=== PATIENT | female | born 1945 | race Caucasian/White ===

== ENCOUNTER → 2021-03-09 | Outpatient (CLI) | payer MEDICARE, OTHER ==
[2021-03-09 09:34] LABS: Anisocytosis Slight; Basophils % (A) 1 %; Eosinophils # (A) 0.1 k/uL (0-0.7); Eosinophils % (A) 5 %; HCT 29.8 % (34.0-46.0); HGB 8.8 gm/dL (11.4-16.0); Hypochromasia Marked; Lymphocytes % (A) 33 %; MCH 22.6 pg (25.0-35.0); MCHC 29.6 g/dL (31.0-37.0); MCV 76.4 fL (80.0-100.0); Mean Platelet Volume 6.1; Microcytosis Slight; Monocytes # (A) 0.3 k/uL (0-1.0); Monocytes % (A) 9 %; Neutrophils # (A) 1.5 k/uL (1.3-7.7); Neutrophils % (A) 49 %; Platelet Count 240 k/uL (150-450); Reticulocyte % 2.8 % (0.5-2.0); WBC 3.1 k/uL (3.8-10.6)
--- NOTE | 2021-03-09 12:58 | US ---
EXAMINATION TYPE: US abdomen complete DATE OF EXAM: 03/09/2021 COMPARISON: NONE CLINICAL HISTORY: D64.9 Anemia. EXAM MEASUREMENTS: Liver Length: 16.1 cm Gallbladder Wall: 0.2 cm CBD: 0.5 cm Spleen: 14.0 cm Right Kidney: 10.9 x 4.9 x 5.2 cm Left Kidney: 11.3 x 5.8 x 4.8 cm Morbidly obese patient who was unable to follow direction. Technically difficult very limited study. Pancreas: Obscured by bowel gas Liver: heterogeneous, limited views Gallbladder: cholelithiasis Evidence for sonographic Rust's sign: no CBD: wnl Spleen: enlarged Right Kidney: cortical thinning, limited views Left Kidney: not well visualized, ? hydronephrosis Upper IVC: wnl Abd Aorta: limited views Suboptimal study due to patient's large body habitus. Visualized portion of the proximal and mid aort a shows no aneurysm. Visualized portion of pancreas likely heterogeneous without mass or ductal dilat ation. IVC seen hepatic dome. Heterogeneity and visualized portion of liver without obvious mass or ductal dilatation. Intraluminal mobile shadowing gallstones. No abnormal wall thickening or pericholecystic fluid. Cortical thinning right kidney without hydronephrosis. Mild splenomegaly of 14.0 cm long axis. Poorly visualized left kidney on images saved. Cannot exclude left-sided hydronephrosis. IMPRESSION: Mild splenomegaly with heterogeneous hyperechoic appearance of liver could reflect diffus e fatty infiltration and/or underlying hepatocellular disease. No surrounding ascites. Suboptimal ko dy.
[2021-03-09 15:42] LABS: Folate, Serum 16.2 ng/mL
[2021-03-09 17:08] LABS: Protein, Total 6.8 g/dL (6.2-8.2)
[2021-03-10 13:30] LABS: Albumin 3.62 g/dL (3.80-4.90); Gamma Globulin 1.31 g/dL (0.70-1.50)
== END | disposition home or self-care (01) ==
LOC: RADUSWWP 08:30
PROVIDERS: ATTEND Internal Medicine
DX: D64.9 Anemia, unspecified (principal); R16.1 Splenomegaly, not elsewhere classified; K76.89 Other specified diseases of liver
CPT/HCPCS: 76700; 82607; 82746; 83615; 84165; 85025; 85045

== ENCOUNTER 2021-05-24 09:56 | Day surgery (SDC) | payer MEDICARE, OTHER ==
[2021-05-19 15:33] VITALS: BMI 43.2
[2021-05-24] MEDS ORDERED: LACTATED RINGERS 1,000 ML IV ONE (10:30)
[2021-05-24 10:32] VITALS: RESP 16; TEMP 97.9
[2021-05-24] MEDS ORDERED: LIDOCAINE 1% INJ 10MG/ML (20 ML MDV) ONE (10:52)
[2021-05-24] MEDS ORDERED: PROPOFOL 10 MG/ML 20 ML VIAL IV ONE (10:52)
--- NOTE | 2021-05-24 10:54 | P.GSHP ---
History of Present Illness H&P Date: 05/24/21 Chief Complaint: Anemia, screening 75-year-old female here for screening colonoscopy and workup for iron deficiency anemia. Patient with personal history of colon polyps during colonoscopy 2011. No bowel complaints. No rectal bleeding or melena. Past Medical History Past Medical History: Seizure Disorder Additional Past Medical History / Comment(s): DEVELPMENTAL DELAY. 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 History of Any Multi-Drug Resistant Organisms: None Reported Past Surgical History: Tonsillectomy Additional Past Surgical History / Comment(s): CYST ON TAILBONE, CYST ON BREAST REMOVED. Past Anesthesia/Blood Transfusion Reactions: No Reported Reaction Additional Past Anesthesia/Blood Transfusion Reaction / Comment(s): STATES SHE GETS "TOO NERVOUS" Additional Psychological History / Comment(s): DEVELOPMENTAL DELAY Smoking Status: Never smoker Past Alcohol Use History: None Reported Past Drug Use History: None Reported - Past Family History Mother Family Medical History: Unable to Obtain Medications and Allergies Home Medications Medication Instructions Recorded Confirmed Type Bumetanide 2 mg PO BID 05/20/21 05/20/21 History Cholecalciferol [Vitamin D3 (25 50 mcg PO DAILY 05/20/21 05/20/21 History Mcg = 1000 Iu)] Levothyroxine Sodium 125 mcg PO DAILY 05/20/21 05/20/21 History Multivitamin [Multivitamins Adult 1 each PO DAILY 05/20/21 05/20/21 History Gummies] Phenytoin Sodium Extended 200 mg PO BID 05/20/21 05/20/21 History [Dilantin] Primidone 250 mg PO HS 05/20/21 05/20/21 History Potassium Chloride 10 meq PO BID 05/23/21 05/23/21 History Allergies Allergy/AdvReac Type Severity Reaction Status Date / Time Penicillins Allergy Rash/Hives Verified 05/24/21 10:26 Surgical - Exam Vital Signs Temp Pulse Resp BP Pulse Ox 97.9 F 93 16 139/63 93 L 05/24/21 10:30 05/24/21 10:30 05/24/21 10:30 05/24/21 10:30 05/24/21 10:30 Physical exam: General: Well-developed, well-nourished HEENT: Normocephalic, sclerae nonicteric Abdomen: Nontender, nondistended Extremities: No edema Neuro: Alert and oriented Assessment and Plan (1) Colon cancer screening Narrative/Plan: Will proceed with upper and lower endoscopy. Current Visit: Yes Status: Acute Code(s): Z12.11 - ENCOUNTER FOR SCREENING FOR MALIGNANT NEOPLASM OF COLON SNOMED Code(s): 098863544
--- NOTE | 2021-05-24 11:26 | P.PCN ---
Date of Procedure: 05/24/21 Procedure(s) Performed: PREOPERATIVE DIAGNOSIS: Anemia, screening POSTOPERATIVE DIAGNOSIS: Gastric mass, gastric polyp, gastric nodules, multiple colon polyps, diverticulosis PROCEDURE: 1. EGD with biopsy 2. Colonoscopy with snare polypectomy ANESTHESIA: MAC SURGEON: Young Araiza M.D. SPECIMENS: Gastric mass, gastric polyp, gastric nodule, colon polyps ENDOSCOPIC PROCEDURE: The patient was on the endoscopy table in the left decubitus position. The Olympus gastroscope was inserted into the oropharynx and passed under direct visualization to the region of the third portion of the duodenum. From that point the scope was slowly withdrawn inspecting all surfaces carefully. There were no neoplastic inflammatory or polypoid lesions throughout the duodenum. The pylorus was widely patent. The stomach was carefully inspected. There was a mass present along the lesser curvature that was friable in nature. This was somewhat pedunculated in appearance. This measured approximately 4-5 cm in diameter. Multiple biopsies were taken of this area. This was present about 8-10 cm distal to the GE junction. In the antrum there was some nodularity of the mucosa that was biopsied. In the proximal antrum along the greater curvature a 1 cm polypoid lesion was seen and biopsied as well. Retroflexion revealed normal hiatus. The esophagus was examined and appeared normal. The patient was kept on the endoscopy table in the left decubitus position. The Olympus colonoscope was inserted into the anus and passed under direct visualization to the base of the cecum. The appendiceal orifice was visualized. From that point the scope was slowly withdrawn inspecting all surfaces carefully. There were no neoplastic inflammatory or polypoid lesions throughout the cecum. In the ascending colon a polyp was seen and removed using the snare with cautery technique. In the transverse colon another small polyp was seen and removed in a similar fashion. In the descending colon another small polyp was seen and removed in a similar fashion. The remainder of the descending sigmoid and rectum appeared normal. The patient had scattered diverticulosis. Digital rectal examination was normal. The patient was taken to the recovery room in stable condition per anesthesia guidelines. RECOMMENDATIONS: Await biopsy results. Source of anemia appears to be related to the gastric mass seen. Follow-up in office 1-2 weeks.
[2021-05-24 11:54] VITALS: BP 141/77; PULSE 75
== END 2021-05-24 12:06 | disposition home or self-care (01) ==
LOC: ORWHC2ENDO 09:56
PROVIDERS: ATTEND Surgery
DX: Z12.11 Encounter for screening for malignant neoplasm of colon (principal); D50.9 Iron deficiency anemia, unspecified; K31.9 Disease of stomach and duodenum, unspecified; K31.7 Polyp of stomach and duodenum; D13.1 Benign neoplasm of stomach; D12.2 Benign neoplasm of ascending colon; D12.4 Benign neoplasm of descending colon; D12.3 Benign neoplasm of transverse colon; G40.909 Epilepsy, unspecified, not intractable, without status epilepticus; E03.9 Hypothyroidism, unspecified; D51.9 Vitamin B12 deficiency anemia, unspecified; F82 Specific developmental disorder of motor function; Z88.0 Allergy status to penicillin; Z86.010 Personal history of colon polyps; Z79.899 Other long term (current) drug therapy; Z79.890 Hormone replacement therapy
CPT/HCPCS: 45385; 43239; 88305; J2001; J2704

== ENCOUNTER → 2022-07-06 | Outpatient (CLI) | payer MEDICARE, OTHER ==
[2022-07-06 19:21] LABS: % Iron Saturation 23.95 (12.00-45.00); ALT 30 U/L (8-44); AST 21 U/L (13-35); Albumin 3.9 g/dL (3.8-4.9); Albumin/Globulin Ratio 1.24 (1.60-3.17); Alkaline Phosphatase 125 U/L (41-126); BUN/Creat Ratio 26.85 Ratio (12.00-20.00); Blood Urea Nitrogen 17.8 mg/dL (9.0-27.0); Calcium 10.6 mg/dL (8.7-10.3); Carbon Dioxide 26.1 mmol/L (20.0-27.5); Chloride 106 mmol/L (96-109); Chol/HDL Ratio 2.23 Ratio; Ferritin 57.5 ng/mL (10.0-291.0); Globulin 3.2 g/dL (1.6-3.3); Glucose 126 mg/dL (70-110); Iron 72 ug/dL (50-170); LDL Cholesterol,Calculated 68.4 mg/dL (0.0-131.0); Non-African American GFR(CKD) 86.3 (60.0-200.0); Potassium 4.9 mmol/L (3.5-5.5); Sodium 140 mmol/L (135-145); Total Iron Binding Capacity 301 ug/dL (228-460); Total Protein 7.1 g/dL (6.2-8.2); VLDL Calculation 12.68 mg/dL (5.00-40.00)
[2022-07-06 20:19] LABS: Basophils # (A) 0.03 X 10*3/uL (0.00-0.10); Basophils % (A) 0.7 %; Eosinophils # (A) 0.23 X 10*3/uL (0.04-0.35); Eosinophils % (A) 5.3 %; HCT 42.3 % (37.2-46.3); HGB 13.6 g/dL (12.0-15.0); Immature Grans, Automated 0 %; Lymphocytes # (A) 1.44 X 10*3/uL (0.90-5.00); Lymphocytes % (A) 33.3 %; MCHC 32.2 g/dL (32.0-37.0); MCV 102.7 fL (80.0-97.0); Mean Platelet Volume 10.4 fL (9.5-12.2); Monocytes # (A) 0.44 X 10*3/uL (0.20-1.00); Monocytes % (A) 10.2 %; NRBC Per 100 WBC 0 /100 WBCS (0.0-0.0); Neutrophils # (A) 2.18 X 10*3/uL (1.80-7.70); Neutrophils % (A) 50.5 %; Platelet Count 156 X 10*3/uL (140-440); RBC 4.12 X 10*6/uL (4.10-5.20); RDW 13.8 % (11.5-14.5); WBC 4.32 X 10*3/uL (4.50-10.00)
--- NOTE | 2022-07-07 10:45 | CA ---
Transthoracic Echo Report Name: Margarita Chao Age: 77 Gender: F : 1945 Exam Date: 07/06/2022 11:41 Exam Location: [facility] Ht (in): 65 Wt (lb): 240 Ordering Physician: Chung Chance MD Attending/Referring Phys: Director Group Sales Laura Palmer RDCS Procedure CPT: Indications: R60.0 localized swelling Cardiac Hx: Technical Quality: Technically difficult study Contrast 1: Lumason Total Dose (mL): 4 Contrast 2: Total Dose (mL): MEASUREMENTS (Male / Female) Normal Values 2D ECHO LV Diastolic Diameter PLAX 4.6 cm 4.2 - 5.9 / 3.9 - 5.3 cm LV Systolic Diameter PLAX 3.1 cm IVS Diastolic Thickness 1.3 cm 0.6 - 1.0 / 0.6 - 0.9 cm LVPW Diastolic Thickness 1.2 cm 0.6 - 1.0 / 0.6 - 0.9 cm LV Relative Wall Thickness 0.5 RV Internal Dim ED PLAX 3.7 cm M-MODE Aortic Root Diameter MM 2.9 cm LA Systolic Diameter MM 3.6 cm LA Ao Ratio MM 1.2 AV Cusp Separation MM 1.7 cm DOPPLER AV Peak Velocity 76.2 cm/s AV Peak Gradient 2.3 mmHg LVOT Peak Velocity 87.9 cm/s LVOT Peak Gradient 3.1 mmHg MV Area PHT 3.9 cm??? Mitral E Point Velocity 69.4 cm/s Mitral A Point Velocity 73.3 cm/s Mitral E to A Ratio 0.9 MV Deceleration Time 192.5 ms TR Peak Velocity 222.4 cm/s TR Peak Gradient 19.8 mmHg Right Ventricular Systolic Press 24.8 mmHg FINDINGS Left Ventricle Mildly increased left ventricular wall thickness. Normal left ventricular systolic function with no obvious regional wall motion abnormalities. Left ventricular ejection fraction is estimated at 50-55 %. Right Ventricle Mild right ventricular dilatation. Right ventricular systolic pressure within normal limits. Right Atrium Normal right atrial size. Left Atrium Normal left atrial size. Mitral Valve Mitral valve not well visualized. No mitral stenosis. Aortic Valve No aortic valve stenosis or regurgitation. Tricuspid Valve Mild tricuspid regurgitation. Pulmonic Valve Trace pulmonic regurgitation. Pericardium No pericardial effusion. Aorta Normal size aortic root and proximal ascending aorta. CONCLUSIONS Technically difficult study for interpretation Normal left ventricular dimension and systolic function Previewed by: Dr. Manuel Delgado MD (Electronically Signed) Final Date: 07 July 2022 10:44
--- NOTE | 2022-07-10 16:09 | US ---
EXAMINATION TYPE: US arterial LE single level DATE OF EXAM: 07/06/2022 11:29 AM CLINICAL HISTORY: R60.0 LOCALIZED EDEMA. painful heels where patient has blistering, swelling Doppler Waveforms: Right: Biphasic Left: Biphasic Ankle-Brachial Indices: Right: 1.0 Left: 1.0 Toe Brachial Indices: Right: 0.6 Left: could not obtain, big toe crosses over 2nd digit and has red wound that is painful for patient. IMPRESSION: Some limitations the exam. Normal ankle-brachial indices.
== END | disposition home or self-care (01) ==
LOC: RADUSWWP 10:43
PROVIDERS: ATTEND Internal Medicine
DX: R60.0 Localized edema (principal)
CPT/HCPCS: 84439; 80061; 80053; 82607; 82728; 80185; 82746; 83540; 83550; 84443; 85025; 82306; 83036; 93922; C8929; Q9950; 93306

== ENCOUNTER 2023-05-06 16:20 | Inpatient (IN) | payer MEDICARE, OTHER ==
[2023-05-06] MEDS ORDERED: SODIUM CHLORIDE 0.9% 1,000 ML IV STA (16:45)
--- NOTE | 2023-05-06 16:45 | ED ---
Syncope HPI - General Chief Complaint: Fall Stated Complaint: fall Time Seen by Provider: 05/06/23 16:26 Source: EMS, RN notes reviewed, old records reviewed, Caregiver Mode of arrival: EMS Limitations: no limitations - History of Present Illness Initial Comments: This is a 77-year-old female to the emergency department for evaluation weakness weakness continuing to feel well significantly swollen and possible syncopal event. Patient has persistent symptoms since syncopal event and she fell off the toilet. Patient has weakness currently were unable to provide accurate history historian at baseline patient having difficulty telling complete story of why she is here in the ER patient's thought passed out will sitting on the toilet. MD Complaint: loss of consciousness, almost passed out, collapsed -: hour(s) Prodromal Symptoms: none, chest pain Witnessed: yes - by bystander Injuries Sustained Associated with Event: None Current Symptoms: back to baseline, lightheaded Context: at rest Treatments Prior to Arrival: none - Related Data Home Medications Medication Instructions Recorded Confirmed Levothyroxine Sodium 125 mcg PO DAILY 05/20/21 05/06/23 Phenytoin Sodium Extended 200 mg PO BID 05/20/21 05/06/23 [Dilantin] Primidone 250 mg PO HS 05/20/21 05/06/23 Potassium Chloride 10 meq PO DAILY 05/23/21 05/06/23 Betamethasone Dipropionate 1 applic TOPICAL BID 05/06/23 05/06/23 [Betamethasone Dipropionate 0.05%] Cinacalcet [Sensipar] 30 mg PO DAILY 05/06/23 05/06/23 Hydrocortisone Oint 1 applic TOPICAL BID 05/06/23 05/06/23 [Hydrocortisone 2.5% Oint] Montelukast [Singulair] 10 mg PO DAILY 05/06/23 05/06/23 predniSONE See Taper PO DAILY 05/06/23 05/07/23 Allergies Allergy/AdvReac Type Severity Reaction Status Date / Time Penicillins Allergy Rash/Hives Verified 05/06/23 20:18 Review of Systems ROS Statement: Those systems with pertinent positive or pertinent negative responses have been documented in the HPI. ROS Other: All systems not noted in ROS Statement are negative. Past Medical History History of Any Multi-Drug Resistant Organisms: None Reported Smoking Status: Never smoker General Exam Limitations: altered mental status, physical limitation General appearance: alert, in no apparent distress, anxious, lethargic, obtunded , in distress Head exam: Present: atraumatic, normocephalic, normal inspection Eye exam: Present: normal appearance, PERRL, EOMI. Absent: scleral icterus, conjunctival injection, periorbital swelling ENT exam: Present: normal exam, mucous membranes moist Neck exam: Present: normal inspection. Absent: tenderness, meningismus, lymphadenopathy Respiratory exam: Present: normal lung sounds bilaterally. Absent: respiratory distress, wheezes, rales, rhonchi, stridor Cardiovascular Exam: Present: regular rate, normal rhythm, normal heart sounds. Absent: systolic murmur, diastolic murmur, rubs, gallop, clicks GI/Abdominal exam: Present: soft, normal bowel sounds. Absent: distended, tenderness, guarding, rebound, rigid Extremities exam: Present: normal inspection, full ROM, normal capillary refill. Absent: tenderness, pedal edema, joint swelling, calf tenderness Back exam: Present: normal inspection Neurological exam: Present: alert, oriented X3, CN II-XII intact Psychiatric exam: Present: normal affect, normal mood Skin exam: Present: warm, dry, intact, normal color. Absent: rash Course Vital Signs 05/06/23 05/06/23 05/06/23 16:22 18:36 19:00 Temperature 97.2 F L Pulse Rate 77 73 69 Pulse Rate [ After School Program Teacher ] Respiratory 20 24 20 Rate Blood Pressure 158/75 210/69 134/59 Blood Pressure [Left Arm Supine] O2 Sat by Pulse 96 100 97 Oximetry 05/06/23 20:10 Temperature 96.7 F L Pulse Rate Pulse Rate [ 78 After School Program Teacher ] Respiratory 15 Rate Blood Pressure Blood Pressure 166/73 [Left Arm Supine] O2 Sat by Pulse 100 Oximetry - Reevaluation(s) Reevaluation #1: 05/06/23 17:49 Medical record is reviewed Reevaluation #2: 05/06/23 20:03 Patient has seizure here in the ER, symptoms worsening Seizure has resolved, no recurrent syncope Reevaluation #3: 05/06/23 20:03 Patient informed of results questions answered Reevaluation #4: 05/06/23 17:49 Was pt. sent in by a medical professional or institution (, PA, DATA GOVERNANCE ANALYST, urgent care, hospital, or alf...) When possible be specific @ -no Did you speak to anyone other than the patient for history (EMS, parent, family, police, friend...)? What history was obtained from this source @ -no Did you review nursing and triage notes (agree or disagree)? Why? @ -agree Are old charts reviewed (outside hosp., previous admission, EMS record, old EKG, old radiological studies, urgent care reports/EKG's, alf records)? Report findings @ -yes Differential Diagnosis (chest pain, altered mental status, abdominal pain women, abdominal pain men, vaginal bleeding, weakness, fever, dyspnea, syncope, headache, dizziness, GI bleed, back pain, seizure, CVA, palpatations, mental health, musculoskeletal)? @ -prior EKG interpreted by me (3pts min.). @ -yes X-rays interpreted by me (1pt min.). @ -no CT interpreted by me (1pt min.). @ -no U/S interpreted by me (1pt. min.). @ -no What testing was considered but not performed or refused? (CT, X-rays, U/S, labs )? Why? @ -none What meds were considered but not given or refused? Why? @ -none Did you discuss the management of the patient with other professionals (professionals i.e. , PA, DATA GOVERNANCE ANALYST, lab, RT, psych nurse, social services aide, excel expert, teacher, mechanical engineering officer, bottle caser)? Give summary @ -no Was smoking cessation discussed for >3mins.? @ -no Was critical care preformed (if so, how long)? @ -yes55 Were there social determinants of health that impacted care today? How? (Homelessness, low income, unemployed, alcoholism, drug addiction, transportation, low edu. Level, literacy, decrease access to med. care, fpc, rehab)? @ -none Was there de-escalation of care discussed even if they declined (Discuss DNR or withdrawal of care, Hospice)? DNR status @ -no What co-morbidities impacted this encounter? (DM, HTN, Smoking, COPD, CAD, Cancer, CVA, ARF, Chemo, Hep., AIDS, mental health diagnosis, sleep apnea, morbid obesity)? @ -none Was patient admitted / discharged? Hospital course, mention meds given and route, prescriptions, significant lab abnormalities, going to OR and other pertinent info. @ - 77 female to the emergency department for evaluation of syncopal event patient did have seizure here in the ER and then found to have subsequent sodium of 110. Patient will be admitted to the ICU on 3% saline Admitted Undiagnosed new problem with uncertain prognosis? @ -no Drug Therapy requiring intensive monitoring for toxicity (Heparin, Nitro, Insulin, Cardizem)? @ -no Were any procedures done? @ -no Diagnosis/symptom? @ -Hyponatremic, seizures, syncope, weakness Acute, or Chronic, or Acute on Chronic? @ -Acute Uncomplicated (without systemic symptoms) or Complicated (systemic symptoms)? @ -Complicated Side effects of treatment? @ -no Exacerbation, Progression, or Severe Exacerbation? @ -exacerbation Poses a threat to life or bodily function? How? (Chest pain, USA, AK, pneumonia, PE, COPD, DKA, ARF, appy, cholecystitis, CVA, Diverticulitis, Homicidal, Suicidal, threat to staff... and all critical care pts) @ -yes Reevaluation #5: 05/06/23 17:49 Differential Syncope: Valvular disease, hypertrophic cardiomyopathy, pulmonary embolism, tamponade, tachycardia, bradycardia, AK, hypovolemia, hemorrhage, dissection, anemia, intracranial hemorrhage, seizure, hypoglycemia, carbon monoxide poisoning, this is not meant to be an all-inclusive list. - Consultations Consultation #1: Spoke with sound who agrees to admit this patient Consultation #2: Spoke with ICU physician who agrees to admit the patient to the ICU EKG Findings - EKG Comments: EKG Findings:: EKG is sinus 74 OH 195 QRS 95 QTc 404 - EKG Results: EKG: interpreted by ERMD Medical Decision Making - Medical Decision Making 77 female to the emergency department for evaluation of syncopal event patient did have seizure here in the ER and then found to have subsequent sodium of 110. Patient did recover from seizure activity with return to normal mental state, patient significantly ill here in the ER with persistent weakness. Patient will be admitted to the ICU on 3% saline - Lab Data Result diagrams: 05/09/23 03:32 05/14/23 05:39 Lab Results 05/06/23 05/06/23 05/06/23 Range/Units 17:20 17:20 17:20 WBC 7.2 (3.8-10.6) k/uL RBC 3.59 L (3.80-5.40) m/uL Hgb 11.7 (11.4-16.0) gm/dL Hct 32.8 L (34.0-46.0) % MCV 91.3 (80.0-100.0) fL MCH 32.6 (25.0-35.0) pg MCHC 35.7 (31.0-37.0) g/dL RDW 14.3 (11.5-15.5) % Plt Count 169 (150-450) k/uL MPV 7.4 Neutrophils % 82 % Lymphocytes % 6 % Monocytes % 8 % Eosinophils % 2 % Basophils % 0 % Neutrophils # 5.9 (1.3-7.7) k/uL Lymphocytes # 0.5 L (1.0-4.8) k/uL Monocytes # 0.6 (0-1.0) k/uL Eosinophils # 0.1 (0-0.7) k/uL Basophils # 0.0 (0-0.2) k/uL PT 9.6 (9.0-12.0) sec INR 0.9 (<1.2) APTT 25.1 (22.0-30.0) sec Sodium 110 L* (137-145) mmol/L Potassium 4.7 (3.5-5.1) mmol/L Chloride 86 L (98-107) mmol/L Carbon Dioxide 19 L (22-30) mmol/L Anion Gap 5 mmol/L BUN 19 H (7-17) mg/dL Creatinine 0.50 L (0.52-1.04) mg/dL Est GFR (CKD-EPI)AfAm >90 (>60 ml/min/1.73 sqM) Est GFR (CKD-EPI)NonAf >90 (>60 ml/min/1.73 sqM) Glucose 156 H (74-99) mg/dL Osmolality (280-301) mosm/kg Calcium 8.7 (8.4-10.2) mg/dL Phosphorus 2.9 (2.5-4.5) mg/dL Magnesium 1.8 (1.6-2.3) mg/dL Total Bilirubin 0.5 (0.2-1.3) mg/dL AST 140 H (14-36) U/L ALT 49 H (4-34) U/L Alkaline Phosphatase 81 (38-126) U/L Troponin I (0.000-0.034) ng/mL NT-Pro-B Natriuret Pep 48 pg/mL Total Protein 5.9 L (6.3-8.2) g/dL Albumin 2.7 L (3.5-5.0) g/dL Urine Color Urine Appearance (Clear) Urine pH (5.0-8.0) Ur Specific Henderson (1.001-1.035) Urine Protein (Negative) Urine Glucose (UA) (Negative) Urine Ketones (Negative) Urine Blood (Negative) Urine Nitrite (Negative) Urine Bilirubin (Negative) Urine Urobilinogen (<2.0) mg/dL Ur Leukocyte Esterase (Negative) Urine RBC (0-5) /hpf Urine WBC (0-5) /hpf Ur Squamous Epith Cells (0-4) /hpf Urine Mucus (None) /hpf Urine Osmolality (50-1400) mosm/kg 05/06/23 05/06/23 05/06/23 Range/Units 17:20 17:20 19:20 WBC (3.8-10.6) k/uL RBC (3.80-5.40) m/uL Hgb (11.4-16.0) gm/dL Hct (34.0-46.0) % MCV (80.0-100.0) fL MCH (25.0-35.0) pg MCHC (31.0-37.0) g/dL RDW (11.5-15.5) % Plt Count (150-450) k/uL MPV Neutrophils % % Lymphocytes % % Monocytes % % Eosinophils % % Basophils % % Neutrophils # (1.3-7.7) k/uL Lymphocytes # (1.0-4.8) k/uL Monocytes # (0-1.0) k/uL Eosinophils # (0-0.7) k/uL Basophils # (0-0.2) k/uL PT (9.0-12.0) sec INR (<1.2) APTT (22.0-30.0) sec Sodium (137-145) mmol/L Potassium (3.5-5.1) mmol/L Chloride (98-107) mmol/L Carbon Dioxide (22-30) mmol/L Anion Gap mmol/L BUN (7-17) mg/dL Creatinine (0.52-1.04) mg/dL Est GFR (CKD-EPI)AfAm (>60 ml/min/1.73 sqM) Est GFR (CKD-EPI)NonAf (>60 ml/min/1.73 sqM) Glucose (74-99) mg/dL Osmolality 247 L* (280-301) mosm/kg Calcium (8.4-10.2) mg/dL Phosphorus (2.5-4.5) mg/dL Magnesium (1.6-2.3) mg/dL Total Bilirubin (0.2-1.3) mg/dL AST (14-36) U/L ALT (4-34) U/L Alkaline Phosphatase (38-126) U/L Troponin I <0.012 (0.000-0.034) ng/mL NT-Pro-B Natriuret Pep pg/mL Total Protein (6.3-8.2) g/dL Albumin (3.5-5.0) g/dL Urine Color Yellow Urine Appearance Clear (Clear) Urine pH 5.5 (5.0-8.0) Ur Specific Henderson 1.025 (1.001-1.035) Urine Protein Trace H (Negative) Urine Glucose (UA) Negative (Negative) Urine Ketones 1+ H (Negative) Urine Blood Small H (Negative) Urine Nitrite Negative (Negative) Urine Bilirubin Negative (Negative) Urine Urobilinogen <2.0 (<2.0) mg/dL Ur Leukocyte Esterase Negative (Negative) Urine RBC <1 (0-5) /hpf Urine WBC 1 (0-5) /hpf Ur Squamous Epith Cells <1 (0-4) /hpf Urine Mucus Rare H (None) /hpf Urine Osmolality (50-1400) mosm/kg 05/06/23 Range/Units 19:20 WBC (3.8-10.6) k/uL RBC (3.80-5.40) m/uL Hgb (11.4-16.0) gm/dL Hct (34.0-46.0) % MCV (80.0-100.0) fL MCH (25.0-35.0) pg MCHC (31.0-37.0) g/dL RDW (11.5-15.5) % Plt Count (150-450) k/uL MPV Neutrophils % % Lymphocytes % % Monocytes % % Eosinophils % % Basophils % % Neutrophils # (1.3-7.7) k/uL Lymphocytes # (1.0-4.8) k/uL Monocytes # (0-1.0) k/uL Eosinophils # (0-0.7) k/uL Basophils # (0-0.2) k/uL PT (9.0-12.0) sec INR (<1.2) APTT (22.0-30.0) sec Sodium (137-145) mmol/L Potassium (3.5-5.1) mmol/L Chloride (98-107) mmol/L Carbon Dioxide (22-30) mmol/L Anion Gap mmol/L BUN (7-17) mg/dL Creatinine (0.52-1.04) mg/dL Est GFR (CKD-EPI)AfAm (>60 ml/min/1.73 sqM) Est GFR (CKD-EPI)NonAf (>60 ml/min/1.73 sqM) Glucose (74-99) mg/dL Osmolality (280-301) mosm/kg Calcium (8.4-10.2) mg/dL Phosphorus (2.5-4.5) mg/dL Magnesium (1.6-2.3) mg/dL Total Bilirubin (0.2-1.3) mg/dL AST (14-36) U/L ALT (4-34) U/L Alkaline Phosphatase (38-126) U/L Troponin I (0.000-0.034) ng/mL NT-Pro-B Natriuret Pep pg/mL Total Protein (6.3-8.2) g/dL Albumin (3.5-5.0) g/dL Urine Color Urine Appearance (Clear) Urine pH (5.0-8.0) Ur Specific Henderson (1.001-1.035) Urine Protein (Negative) Urine Glucose (UA) (Negative) Urine Ketones (Negative) Urine Blood (Negative) Urine Nitrite (Negative) Urine Bilirubin (Negative) Urine Urobilinogen (<2.0) mg/dL Ur Leukocyte Esterase (Negative) Urine RBC (0-5) /hpf Urine WBC (0-5) /hpf Ur Squamous Epith Cells (0-4) /hpf Urine Mucus (None) /hpf Urine Osmolality 722 (50-1400) mosm/kg - EKG Data -: EKG Interpreted by Me Critical Care Time Critical Care Time: Yes Total Critical Care Time: 65 Disposition Clinical Impression: Fall, Seizure, Hyponatremia, Syncope, Weakness Disposition: ADMITTED IP TO THIS [facility] Condition: Critical Is patient prescribed a controlled substance at d/c from ED?: No Time of Disposition: 20:00
[2023-05-06 17:57] LABS: Basophils % (A) 0 %; Eosinophils # (A) 0.1 k/uL (0-0.7); Eosinophils % (A) 2 %; HCT 32.8 % (34.0-46.0); HGB 11.7 gm/dL (11.4-16.0); Lymphocytes # (A) 0.5 k/uL (1.0-4.8); Lymphocytes % (A) 6 %; MCH 32.6 pg (25.0-35.0); MCHC 35.7 g/dL (31.0-37.0); MCV 91.3 fL (80.0-100.0); Mean Platelet Volume 7.4; Monocytes # (A) 0.6 k/uL (0-1.0); Monocytes % (A) 8 %; Neutrophils # (A) 5.9 k/uL (1.3-7.7); Neutrophils % (A) 82 %; Platelet Count 169 k/uL (150-450); RBC 3.59 m/uL (3.80-5.40); RDW 14.3 % (11.5-15.5); WBC 7.2 k/uL (3.8-10.6)
[2023-05-06 18:05] LABS: INR 0.9 (<1.2); Partial Thromboplastin Time 25.1 sec (22.0-30.0); Prothrombin Time 9.6 sec (9.0-12.0)
[2023-05-06 18:20] LABS: ALT 49 U/L (4-34); AST 140 U/L (14-36); African American GFR (CKD) >90 (>60 ml/min/1.73 sqM); Albumin 2.7 g/dL (3.5-5.0); Alkaline Phosphatase 81 U/L (38-126); Anion Gap 5 mmol/L; Blood Urea Nitrogen 19 mg/dL (7-17); Calcium 8.7 mg/dL (8.4-10.2); Carbon Dioxide 19 mmol/L (22-30); Chloride 86 mmol/L (98-107); Glucose 156 mg/dL (74-99); Magnesium 1.8 mg/dL (1.6-2.3); Non-African American GFR(CKD) >90 (>60 ml/min/1.73 sqM); Phosphorus 2.9 mg/dL (2.5-4.5); Potassium 4.7 mmol/L (3.5-5.1); Total Bilirubin 0.5 mg/dL (0.2-1.3); Total Protein 5.9 g/dL (6.3-8.2)
[2023-05-06 18:27] LABS: NT-Pro-B-Type Natriuretic Pept 48 pg/mL
[2023-05-06] MEDS ORDERED: LORazepam 2 MG/ML INJ IV STA (18:35)
[2023-05-06 18:45] LABS: Sodium 110 mmol/L (137-145)
[2023-05-06] MEDS ORDERED: SODIUM CHLORIDE 3%(HYPERTONIC) 500 ML IV ONE (18:51)
[2023-05-06] MEDS ORDERED: levETIRAcetam IV 500 MG/5 ML VIAL IVP STA (19:07)
[2023-05-06] MEDS ORDERED: NALOXONE 0.4 MG/ML 1 ML VIAL IV PRN (19:42)
[2023-05-06 19:49] LABS: Appearance,Urine Clear (Clear); Bilirubin,Urine Negative (Negative); Blood,Urine Small (Negative); Color,Urine Yellow; Glucose,Urine (UA) Negative (Negative); Ketones,Urine 1+ (Negative); Leukocyte Esterase,Urine Negative (Negative); Mucus,Urine Rare /hpf; Nitrite,Urine Negative (Negative); PH, Urine 5.5 (5.0-8.0); Protein,Urine Trace (Negative); RBC,Urine <1 /hpf (0-5); Specific Gravity,Urine 1.025 (1.001-1.035); Squamous Epithelial Cell,Urine <1 /hpf (0-4); Urobilinogen,Urine <2.0 mg/dL (<2.0); WBC,Urine 1 /hpf (0-5)
[2023-05-06 20:39] LABS: Glucose,Whole Blood 147 mg/dL (70-110)
[2023-05-07 00:01] LABS: Sodium 112 mmol/L (137-145)
[2023-05-07] MEDS: HEPARIN SODIUM,PORCINE 5,000 UNIT/ML 1 ML VIAL SQ SCH ×4 (00:58→23:13)
[2023-05-07] MEDS: DOXYCYCLINE 100 MG CAP PO SCH ×3 (01:18→21:31)
[2023-05-07] MEDS: CALAMINE/ZINC OXIDE LOTION 177 ML BTL TOPICAL PRN ×2 (01:21→21:28)
--- NOTE | 2023-05-07 01:44 | P.HPIM ---
History of Present Illness H&P Date: 05/06/23 Chief Complaint: near syncope 77 year old female with seizure disorder. patient provide limited history at this time she is coming in after almost passing out while on the toilet, she felt dizzy and weak and fell off the toilet, denies any head injury or new focal neuro deficits, she is not on blood thinner, denies having any associated chest pain , trouble breathing or palpitations. denies any prior episodes of similar event, she does not believe that she lost consciousness, and her last seizure has been years ago, however recently she has stopped her dilantin under medical supervision. while in the ED, she was noticed to have a seizure episode. blood work showed very low sodium level. she also has a rash over her face, upper chest and upper back. bilateral upper extremities , then to lesser extent on upper abd. and does not extend further than that, mucus membranes are not involved. she claims its itchy and painful at certain spots, she picks on her skin a lot. she reports that she had this lesion for long time, but could not specify how long review of systems Pertinent positives as noted in HPI. All other systems were reviewed and are negative on exam Constitutional: No acute distress, awake cooperative, slow to answer questions Eyes: Anicteric sclerae, moist conjunctiva, Pupils equal round reactive to light ENMT: NC/AT Oropharynx clear, no erythema, or exudates Neck: Supple, no masses, or JVD No carotid bruits No thyromegaly Lungs: Clear to auscultation Clear to percussion Normal respiratory effort, no accessory muscle use Cardiovascular: Heart regular in rate and rhythm, No murmurs, gallops, or rubs +1 bilateral peripheral edema of bilateral upper and lower extremities Abdominal: Soft Nontender, no guarding, rebound or rigidity Abdomen moving with respiration Normoactive bowel sounds No hepatomegaly, No splenomegaly No palpable mass No abdominal wall hernia noted Skin: rash over the face, neck upper chest and back, bilateral upper extremities and upper abd, with areas of excoriation of the skin and dry crustation, along with yellowish mucus discharge around her eyes, and under her neck . Extremities: No digital cyanosis No clubbing Pedal pulses intact and symmetrical Radial pulses intact and symmetrical No calf tenderness Psychiatric: Alert and oriented to person, place Neuro Muscles Strength 3/5 in bilateral upper and lower extremities Sensation to light touch grossly present throughout Cranial nerves II-XII grossly intact Lymphatics: no palpable cervical or supraclavicular lymph nodes Past Medical History Past Medical History: Seizure Disorder, Thyroid Disorder History of Any Multi-Drug Resistant Organisms: None Reported Past Surgical History: No Surgical Hx Reported Additional Past Surgical History / Comment(s): cataract surgery, non-cancerous stomach growth removal Past Psychological History: No Psychological Hx Reported Smoking Status: Never smoker Medications and Allergies Home Medications Medication Instructions Recorded Confirmed Type Levothyroxine Sodium 125 mcg PO DAILY 05/20/21 05/06/23 History Phenytoin Sodium Extended 200 mg PO BID 05/20/21 05/06/23 History [Dilantin] Primidone 250 mg PO HS 05/20/21 05/06/23 History Potassium Chloride 10 meq PO DAILY 05/23/21 05/06/23 History Betamethasone Dipropionate 1 applic TOPICAL BID 05/06/23 05/06/23 History [Betamethasone Dipropionate 0.05%] Cinacalcet [Sensipar] 30 mg PO DAILY 05/06/23 05/06/23 History Hydrocortisone Oint 1 applic TOPICAL BID 05/06/23 05/06/23 History [Hydrocortisone 2.5% Oint] Montelukast [Singulair] 10 mg PO DAILY 05/06/23 05/06/23 History predniSONE 1 dose PO DIRECTED 05/06/23 05/06/23 History Allergies Allergy/AdvReac Type Severity Reaction Status Date / Time Penicillins Allergy Rash/Hives Verified 05/06/23 20:18 Physical Exam Vitals: Vital Signs Temp Pulse Pulse Resp BP BP BP 05/07/23 00:00 76 18 153/73 05/06/23 23:30 80 20 128/60 05/06/23 23:00 67 14 113/49 05/06/23 22:47 96.7 F L 78 15 166/73 05/06/23 22:30 70 15 147/61 05/06/23 22:15 79 18 112/46 05/06/23 22:00 64 15 127/59 05/06/23 21:45 79 19 117/75 05/06/23 21:30 67 16 135/70 05/06/23 21:15 80 18 142/63 05/06/23 21:00 71 15 140/61 05/06/23 20:45 83 22 166/79 05/06/23 20:30 97.4 F L 81 18 123/55 05/06/23 20:10 96.7 F L 78 15 166/73 05/06/23 19:00 69 20 134/59 05/06/23 18:36 73 24 210/69 05/06/23 16:22 97.2 F L 77 20 158/75 Pulse Ox 05/07/23 00:00 94 L 05/06/23 23:30 97 05/06/23 23:00 98 05/06/23 22:47 100 05/06/23 22:30 95 05/06/23 22:15 97 05/06/23 22:00 97 05/06/23 21:45 98 05/06/23 21:30 95 05/06/23 21:15 98 05/06/23 21:00 95 05/06/23 20:45 98 05/06/23 20:30 96 05/06/23 20:10 100 05/06/23 19:00 97 05/06/23 18:36 100 05/06/23 16:22 96 Intake and Output 05/06/23 05/06/23 05/07/23 14:59 22:59 06:59 Intake Total 60 60 Output Total 780 670 Balance -720 -610 Intake: Intake, IV Titration 60 60 Amount Sodium Chloride 3%( 60 60 Hypertonic) 500 ml @ 30 mls/hr IV .[id number] ONE Rx #:[id number] Output: Urine 780 670 Uretheral ([place]) 200 Other: Voiding Method Indwelling Catheter Weight 132.2 kg Results CBC & Chem 7: 05/06/23 17:20 05/06/23 23:25 Labs: Abnormal Lab Results - Last 24 Hours (Table) 05/06/23 05/06/23 05/06/23 Range/Units 17:20 17:20 17:20 RBC 3.59 L (3.80-5.40) m/uL Hct 32.8 L (34.0-46.0) % Lymphocytes # 0.5 L (1.0-4.8) k/uL Sodium 110 L* (137-145) mmol/L Chloride 86 L (98-107) mmol/L Carbon Dioxide 19 L (22-30) mmol/L BUN 19 H (7-17) mg/dL Creatinine 0.50 L (0.52-1.04) mg/dL Glucose 156 H (74-99) mg/dL POC Glucose (mg/dL) (70-110) mg/dL Osmolality 247 L* (280-301) mosm/kg AST 140 H (14-36) U/L ALT 49 H (4-34) U/L Total Protein 5.9 L (6.3-8.2) g/dL Albumin 2.7 L (3.5-5.0) g/dL Urine Protein (Negative) Urine Ketones (Negative) Urine Blood (Negative) Urine Mucus (None) /hpf 05/06/23 05/06/23 05/06/23 Range/Units 19:20 20:37 23:25 RBC (3.80-5.40) m/uL Hct (34.0-46.0) % Lymphocytes # (1.0-4.8) k/uL Sodium 112 L* (137-145) mmol/L Chloride (98-107) mmol/L Carbon Dioxide (22-30) mmol/L BUN (7-17) mg/dL Creatinine (0.52-1.04) mg/dL Glucose (74-99) mg/dL POC Glucose (mg/dL) 147 H (70-110) mg/dL Osmolality (280-301) mosm/kg AST (14-36) U/L ALT (4-34) U/L Total Protein (6.3-8.2) g/dL Albumin (3.5-5.0) g/dL Urine Protein Trace H (Negative) Urine Ketones 1+ H (Negative) Urine Blood Small H (Negative) Urine Mucus Rare H (None) /hpf Assessment and Plan Assessment: 77 year old female in here for near syncope, and witnessed seizure in the ED, I discussed the case with ED doc and I accepted the admission for symptomatic severe hyponatremia to the ICU with anticipated length of stay > 2 midnights symptomatic severe hyponatremia with fluid overload breakthrough seizure episode , secondary to above vs history of seizure disorder off dilantin seizure precautions correct hyponatremia , currently on hypertonic saline 3% , Goal is correction of sodium closer to 120 , currently she is at 110-->112 (GOal correction of 6-9 meq per 24 hours) check Na level q4hrs hypoosmolar nephrology consult ICU care initiated on keppra 1000 mg BID neurology consult monitor vital signs monitor urine output BUN 19 cr 0.5 unremarkable diffuse skin rash and lesions rule out impetigo started on doxycycline 100 mg po bid calamine lotion for comfort no evidence of mucus membranes involvement hypothyroid resume levothyroxine echocardiogram from 01/2022 showed preserved LVEF full code DVT PPX heparin sc tid
--- NOTE | 2023-05-07 02:23 | P.CNPUL ---
History of Present Illness Consult date: 05/07/23 Requesting physician: Juan Garcia Reason for consult: other (ICU management) Chief complaint: Weakness and fall History of present illness: I am seeing this patient in new consultation today and 04/06/2023 for symptomatic hyponatremia. Patient is a 77-year-old white female past medical history significant for seizure disorder, hypothyroidism, and morbid obesity. The patient is a questionable historian. Apparently, the patient presented to the emergency room yesterday afternoon with severe generalized weakness and fall while in the bathroom. She denies hitting her head. There is no obvious head trauma. On arrival to the emergency room, the patient's sodium was found to be severely low at 110. She denies starting any new medications, malignancies. She did reportedly have a seizure while emergency room, which was not described and I'm uncertain of timeframe. It does appear that it was terminated with 2 mg of Ativan. The patient was loaded with Keppra. This is likely due to the patient's hyponatremia, however, the patient's Dilantin was reportedly stopped 7-10 days ago. The patient did develop a rash on her chest and bilateral arms. This may have developed between 1-2 weeks ago; as stated before, the patient is a poor historian. No reported recent seizure in over 10 years. Phenytoin is known to cause Kohler-Simon syndrome, however, this is felt to be less likely the patient has chronically been on this medication. The rash is localized to her chest, upper back, and bilateral arms. It spares mucosal membranes. Rash is erythemic with yellow crust. Patient describes the rash as pruritic and painful. No fever. Patient has been started on doxycycline. CBC on arrival is unremarkable. No leukocytosis. BMP on arrival showed a sodium of 110, potassium 4.7, chloride 86, serum bicarb 19, BUN 19, creatinine 0.5, glucose 156. Serum osmolality was low at 247. Urine osmolality was 722. Most recent sodium was 112. TSH and cortisol levels were within range. Hypertonic 3% saline is infusing at 30 MLS per hour per nephrology. Patient is edematous. There is a [place] catheter with adequate urine production. No further seizure activity noted by nursing staff. Patient is currently sitting up in bed, on room air, in no acute distress. She is drowsy but oriented. She is unable to provide specific dates or times. She has nonfocal generalized weakness throughout. Vital signs are stable. Review of Systems REVIEW OF SYSTEMS: CONSTITUTIONAL: Denies any recent significant weight loss or weight gain. EYES: Denies change in vision. EARS, NOSE, MOUTH, THROAT: Denies headaches, denies sore throat. CARDIOVASCULAR: Denies chest pain, palpitations or syncopal episodes. Admits generalized swelling. RESPIRATORY: Denies shortness of breath, cough, congestion or hemoptysis. GASTROINTESTINAL: Denies change in appetite, abdominal pain, nausea and vomiting, or diarrhea GENITOURINARY: Denies hematuria, denies infections. MUSKULOSKELETAL: Denies pain, denies swelling. INTEGUMENTARY: Admits rashes described in HPI. NEUROLOGICAL: Admits generalized weakness PSYCHIATRIC: Denies anxiety, denies depression. HEMATOLOGIC/LYMPHATIC: Denies anemia, denies enlarged lymph node Past Medical History Past Medical History: Seizure Disorder, Thyroid Disorder History of Any Multi-Drug Resistant Organisms: None Reported Past Surgical History: No Surgical Hx Reported Additional Past Surgical History / Comment(s): cataract surgery, non-cancerous stomach growth removal Past Psychological History: No Psychological Hx Reported Smoking Status: Never smoker Medications and Allergies Home Medications Medication Instructions Recorded Confirmed Type Levothyroxine Sodium 125 mcg PO DAILY 05/20/21 05/06/23 History Phenytoin Sodium Extended 200 mg PO BID 05/20/21 05/06/23 History [Dilantin] Primidone 250 mg PO HS 05/20/21 05/06/23 History Potassium Chloride 10 meq PO DAILY 05/23/21 05/06/23 History Betamethasone Dipropionate 1 applic TOPICAL BID 05/06/23 05/06/23 History [Betamethasone Dipropionate 0.05%] Cinacalcet [Sensipar] 30 mg PO DAILY 05/06/23 05/06/23 History Hydrocortisone Oint 1 applic TOPICAL BID 05/06/23 05/06/23 History [Hydrocortisone 2.5% Oint] Montelukast [Singulair] 10 mg PO DAILY 05/06/23 05/06/23 History predniSONE 1 dose PO DIRECTED 05/06/23 05/06/23 History Allergies Allergy/AdvReac Type Severity Reaction Status Date / Time Penicillins Allergy Rash/Hives Verified 05/06/23 20:18 Physical Exam Vitals: Vital Signs Temp Pulse Pulse Resp BP BP BP 05/07/23 00:00 97.6 F 76 18 153/73 05/06/23 23:30 80 20 128/60 05/06/23 23:00 67 14 113/49 05/06/23 22:47 96.7 F L 78 15 166/73 05/06/23 22:30 70 15 147/61 05/06/23 22:15 79 18 112/46 05/06/23 22:00 64 15 127/59 05/06/23 21:45 79 19 117/75 05/06/23 21:30 67 16 135/70 05/06/23 21:15 80 18 142/63 05/06/23 21:00 71 15 140/61 05/06/23 20:45 83 22 166/79 05/06/23 20:30 97.4 F L 81 18 123/55 05/06/23 20:10 96.7 F L 78 15 166/73 05/06/23 19:00 69 20 134/59 05/06/23 18:36 73 24 210/69 05/06/23 16:22 97.2 F L 77 20 158/75 Pulse Ox 05/07/23 00:00 94 L 05/06/23 23:30 97 05/06/23 23:00 98 05/06/23 22:47 100 05/06/23 22:30 95 05/06/23 22:15 97 05/06/23 22:00 97 05/06/23 21:45 98 05/06/23 21:30 95 05/06/23 21:15 98 05/06/23 21:00 95 05/06/23 20:45 98 05/06/23 20:30 96 05/06/23 20:10 100 05/06/23 19:00 97 05/06/23 18:36 100 05/06/23 16:22 96 Intake and Output 05/06/23 05/06/23 05/07/23 14:59 22:59 06:59 Intake Total 60 60 Output Total 780 670 Balance -720 -215 Intake: Intake, IV Titration 60 60 Amount Sodium Chloride 3%( 60 60 Hypertonic) 500 ml @ 30 mls/hr IV .[id number] ONE Rx #:[id number] Output: Urine 780 670 Uretheral ([place]) 200 Other: Voiding Method Indwelling Catheter Weight 132.2 kg GENERAL EXAM: Drowsy but for a fully oriented, 77-year-old white female, who is morbidly obese , comfortable in no apparent distress. HEAD: Normocephalic and atraumatic EYES: Normal reaction of pupils, equal size. NOSE: Clear with pink turbinates. THROAT: No erythema or exudates. NECK: No masses, no JVD. CHEST: No chest wall deformity. LUNGS: Equal air entry with no crackles, wheeze, rhonchi or dullness. On room air. No conversational dyspnea or accessory muscle use.. CVS: S1 and S2 normal with no audible murmur, regular rhythm. No extra heart sounds ABDOMEN: Obese abdomen, no hepatosplenomegaly, active bowel sounds, no guarding or rigidity. SPINE: No scoliosis or deformity SKIN: Rash localized to the trunk and bilateral upper extremities. It is erythemic with scaling and crusts. CENTRAL NERVOUS SYSTEM: No focal deficits, tone is weak in all 4 extremities. Strength is 3/5 bilaterally in all four extremities. No seizure activity noted. EXTREMITIES: Generalized edema with pitting edema bilateral lower extremities 3+. No clubbing, or cyanosis. Peripheral pulses are intact. Results - Laboratory Findings CBC and BMP: 05/06/23 17:20 05/06/23 23:25 PT/INR, D-dimer PT 9.6 sec (9.0-12.0) 05/06/23 17:20 INR 0.9 (<1.2) 05/06/23 17:20 Abnormal lab findings: Abnormal Labs 05/06/23 05/06/23 05/06/23 17:20 17:20 17:20 RBC 3.59 L Hct 32.8 L Lymphocytes # 0.5 L Sodium 110 L* Chloride 86 L Carbon Dioxide 19 L BUN 19 H Creatinine 0.50 L Glucose 156 H POC Glucose (mg/dL) Osmolality 247 L* AST 140 H ALT 49 H Total Protein 5.9 L Albumin 2.7 L Urine Protein Urine Ketones Urine Blood Urine Mucus 05/06/23 05/06/23 05/06/23 19:20 20:37 23:25 RBC Hct Lymphocytes # Sodium 112 L* Chloride Carbon Dioxide BUN Creatinine Glucose POC Glucose (mg/dL) 147 H Osmolality AST ALT Total Protein Albumin Urine Protein Trace H Urine Ketones 1+ H Urine Blood Small H Urine Mucus Rare H Assessment and Plan Assessment: Symptomatic severe hypotonic hyponatremia, 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 Serum osmolality was low at 247. Urine osmolality was 722. Most recent sodium was 112. TSH and cortisol levels were within range. Hypertonic 3% saline is infusing at 30 MLS per hour per nephrology. Suspected seizure, with history of seizure disorder. Normally maintained on Dilantin, however, this has been reportedly discontinued. Patient was given 2 mg of Ativan in the emergency room and loaded with Keppra. Fall, likely precipitated by above Dermatitis, unknown etiology Mildly elevated LFTs, undetermined significance Hypothyroidism Morbid obesity with a BMI of 49 kg/m Plan: Patient's medications and labs reviewed Continue 3% hypertonic saline per nephrology Sodium recheck every 4 hours Obtain chest x-ray Patient has been loaded with Keppra, no further seizure activity reported Add seizure precautions Neurology has been added to the case Patient has been started on doxycycline for suspected secondary infection of the patient's pruritic rash. Hydrocortisone cream twice a day Heparin for DVT prophylaxis Protonix for GI prophylaxis We will continue to follow and make recommendations while in the intensive care unit I have personally seen and examined the patient, performed the documentation and the assessment and plan as written. Number of minutes spent on the visit:20 Time with Patient: Greater than 30
[2023-05-07 04:02] LABS: Basophils % (A) 0 %; Eosinophils # (A) 0.2 k/uL (0-0.7); Eosinophils % (A) 3 %; HCT 33.5 % (34.0-46.0); HGB 11.5 gm/dL (11.4-16.0); Lymphocytes # (A) 0.5 k/uL (1.0-4.8); Lymphocytes % (A) 10 %; MCHC 34.3 g/dL (31.0-37.0); MCV 93.3 fL (80.0-100.0); Mean Platelet Volume 7.2; Monocytes # (A) 0.7 k/uL (0-1.0); Monocytes % (A) 13 %; Neutrophils # (A) 3.7 k/uL (1.3-7.7); Neutrophils % (A) 70 %; Platelet Count 154 k/uL (150-450); RBC 3.59 m/uL (3.80-5.40); RDW 14.5 % (11.5-15.5); WBC 5.2 k/uL (3.8-10.6)
[2023-05-07 04:13] LABS: ALT 46 U/L (4-34); AST 133 U/L (14-36); African American GFR (CKD) >90 (>60 ml/min/1.73 sqM); Albumin 2.5 g/dL (3.5-5.0); Alkaline Phosphatase 64 U/L (38-126); Anion Gap 6 mmol/L; Blood Urea Nitrogen 13 mg/dL (7-17); Calcium 8.6 mg/dL (8.4-10.2); Carbon Dioxide 20 mmol/L (22-30); Chloride 91 mmol/L (98-107); Glucose 105 mg/dL (74-99); Non-African American GFR(CKD) >90 (>60 ml/min/1.73 sqM); Phosphorus 3.2 mg/dL (2.5-4.5); Potassium 4.8 mmol/L (3.5-5.1); Total Bilirubin 0.5 mg/dL (0.2-1.3); Total Protein 5.4 g/dL (6.3-8.2)
[2023-05-07 04:18] LABS: Sodium 117 mmol/L (137-145)
[2023-05-07] MEDS ORDERED: DEXTROSE 5% IN WATER 1,000 ML IV SCH ×2 (08:15→12:47)
--- NOTE | 2023-05-07 08:36 | XR ---
EXAMINATION TYPE: XR chest 1V portable DATE OF EXAM: 05/07/2023 5:47 AM COMPARISON: None TECHNIQUE: XR chest 1V portable Frontal view of the chest. CLINICAL INDICATION:Female, 77 years old with history of rule out pulmonary etiology of SIADH; FINDINGS: Lungs/Pleura: There is no evidence of pleural effusion, focal consolidation, or pneumothorax. Pulmonary vascularity: Unremarkable. Heart/mediastinum: Cardiomediastinal silhouette is unremarkable. Musculoskeletal: No acute osseous pathology. IMPRESSION: Low lung volumes with a generalized hazy appearance which could represent atelectasis versus pulmonar y edema correlate with serum BNP.
--- NOTE | 2023-05-07 09:41 | P.NPCON ---
History of Present Illness - Reason for Consult hyponatremia - History of Present Illness Reason for consultation: Hyponatremia History of present illness: Patient is a 77-year-old female seen in consultation for hyponatremia. Patient sustained a fall at home in her bathroom and EMS was called by her neighbor. Patient's sodium level was noted to be low at 110 and she received 3% saline overnight. Sodium level has been gradually improving and up to 118 as of this morning. Nonoliguric. GFR at baseline. Patient has mental delay. Patient states she was on Dilantin for history of seizures in the past and was stopped about a week ago by her insurance investigator due to rash. Patient states no other medication for seizure was given. It is noted in the chart the patient did have a seizure in the ER and was given Ativan. She's being followed by neurology. She is now on Keppra. She denies history of diabetes. She denies personal history of malignancy. I don't see nonsteroidals or any thiazide diuretics and her home medication list. Patient states she lives by herself. Vital signs are stable. General: No acute distress. HEENT: Head exam is unremarkable. On nasal cannula. LUNGS: No audible rhonchi or wheezes. HEART: Rate and Rhythm are regular. ABDOMEN: Soft, obese. EXTREMITITES: 2+ edema. Past Medical History Past Medical History: Seizure Disorder, Thyroid Disorder History of Any Multi-Drug Resistant Organisms: None Reported Past Surgical History: No Surgical Hx Reported Additional Past Surgical History / Comment(s): cataract surgery, non-cancerous stomach growth removal Past Psychological History: No Psychological Hx Reported Smoking Status: Never smoker Medications and Allergies Home Medications Medication Instructions Recorded Confirmed Type Levothyroxine Sodium 125 mcg PO DAILY 05/20/21 05/06/23 History Phenytoin Sodium Extended 200 mg PO BID 05/20/21 05/06/23 History [Dilantin] Primidone 250 mg PO HS 05/20/21 05/06/23 History Potassium Chloride 10 meq PO DAILY 05/23/21 05/06/23 History Betamethasone Dipropionate 1 applic TOPICAL BID 05/06/23 05/06/23 History [Betamethasone Dipropionate 0.05%] Cinacalcet [Sensipar] 30 mg PO DAILY 05/06/23 05/06/23 History Hydrocortisone Oint 1 applic TOPICAL BID 05/06/23 05/06/23 History [Hydrocortisone 2.5% Oint] Montelukast [Singulair] 10 mg PO DAILY 05/06/23 05/06/23 History predniSONE See Taper PO DAILY 05/06/23 05/07/23 History Allergies Allergy/AdvReac Type Severity Reaction Status Date / Time Penicillins Allergy Rash/Hives Verified 05/06/23 20:18 Physical Exam Vitals: Vital Signs Temp Pulse Pulse Resp BP BP BP 05/07/23 07:34 05/07/23 07:00 68 8 L 111/46 05/07/23 06:30 65 15 123/69 05/07/23 06:00 81 14 123/55 05/07/23 05:30 78 16 136/55 05/07/23 05:00 75 16 115/46 05/07/23 04:30 67 14 125/53 05/07/23 04:00 97.8 F 78 20 125/54 05/07/23 03:30 72 16 117/71 05/07/23 03:00 64 16 107/47 05/07/23 02:30 64 15 147/52 05/07/23 02:00 68 16 138/53 05/07/23 01:30 74 16 135/92 05/07/23 01:00 77 16 119/50 05/07/23 00:30 66 17 129/101 05/07/23 00:14 67 15 129/101 05/07/23 00:00 97.6 F 76 18 153/73 05/06/23 23:30 80 20 128/60 05/06/23 23:00 67 14 113/49 05/06/23 22:47 96.7 F L 78 15 166/73 05/06/23 22:30 70 15 147/61 05/06/23 22:15 79 18 112/46 05/06/23 22:00 64 15 127/59 05/06/23 21:45 79 19 117/75 05/06/23 21:30 67 16 135/70 05/06/23 21:15 80 18 142/63 05/06/23 21:00 71 15 140/61 05/06/23 20:45 83 22 166/79 05/06/23 20:30 97.4 F L 81 18 123/55 05/06/23 20:10 96.7 F L 78 15 166/73 05/06/23 19:00 69 20 134/59 05/06/23 18:36 73 24 210/69 05/06/23 16:22 97.2 F L 77 20 158/75 Pulse Ox 05/07/23 07:34 97 05/07/23 07:00 94 L 05/07/23 06:30 93 L 05/07/23 06:00 05/07/23 05:30 95 05/07/23 05:00 96 05/07/23 04:30 90 L 05/07/23 04:00 95 05/07/23 03:30 97 05/07/23 03:00 97 05/07/23 02:30 93 L 05/07/23 02:00 99 05/07/23 01:30 95 05/07/23 01:00 96 05/07/23 00:30 93 L 05/07/23 00:14 93 L 05/07/23 00:00 94 L 05/06/23 23:30 97 05/06/23 23:00 98 05/06/23 22:47 100 05/06/23 22:30 95 05/06/23 22:15 97 05/06/23 22:00 97 05/06/23 21:45 98 05/06/23 21:30 95 05/06/23 21:15 98 05/06/23 21:00 95 05/06/23 20:45 98 05/06/23 20:30 96 05/06/23 20:10 100 05/06/23 19:00 97 05/06/23 18:36 100 05/06/23 16:22 96 Intake and Output 05/06/23 05/07/23 05/07/23 22:59 06:59 14:59 Intake Total 60 270 Output Total 780 1560 Balance -720 -1290 Intake: Intake, IV Titration 60 270 Amount Sodium Chloride 3%( 60 270 Hypertonic) 500 ml @ 30 mls/hr IV .[id number] ONE Rx #:[id number] Output: Urine 780 1560 Uretheral ([place]) 200 Other: Voiding Method Indwelling Catheter Indwelling Catheter Weight 132.2 kg 132.2 kg Results - Lab Results Most recent lab results Calcium 8.6 mg/dL (8.4-10.2) 05/07/23 03:18 Phosphorus 3.2 mg/dL (2.5-4.5) 05/07/23 03:18 Magnesium 2.0 mg/dL (1.6-2.3) 05/07/23 03:18 05/07/23 03:18 05/07/23 07:46 Assessment and Plan Plan: Assessment: 1. Symptomatic hyponatremia. Status post 3% saline. Hypervolemic. Sodium level 118 this morning. TSH normal. Urine osmolality 722. 2. Seizure. Possibly from hyponatremia. Dilantin stopped a week prior to admission due to rash. Now on Keppra. Neurology following. 3. Edema. 4. Mental delay. Plan: D5W started by ICU team this morning. I will decrease the rate to 50 mL an hour. Repeat sodium level at 11:30 AM. Avoid further rise in sodium level at this time. Goal rate of sodium correction 6-8 mmol/L per 24-hour period. Follow-up urine sodium level. Check PTH related peptide. Thank you for the consultation. I will continue to follow the patient with you during her hospital stay.
[2023-05-07] MEDS: PANTOPRAZOLE 40 MG/10 ML VIAL IV SCH (09:46)
[2023-05-07] MEDS: levETIRAcetam IV 500 MG/5 ML VIAL IVP SCH ×2 (09:46→21:31)
[2023-05-07] MEDS: HYDROCORTISONE 1% CREAM 30 GM TUBE TOPICAL SCH ×2 (09:47→21:31)
[2023-05-07] MEDS: LEVOTHYROXINE 125 MCG TAB PO SCH (09:47)
--- NOTE | 2023-05-07 10:11 | P.CNNES ---
History of Present Illness Consult date: 05/07/23 Requesting physician: Juan Garcia Reason for Consult: Seizure History of Present Illness: Patient is a 77-year-old female with long-standing history of seizure disorder, slight developmental delays, lives alone by herself, came to the hospital by ambulance yesterday at 4:20 PM after she suffered from a fall while sitting on the toilet. Apparently patient felt dizzy, felt of the toilet, but did not hit her head. The neighbor living downstairs heard a fall, and went in to check on her, and was found on the floor. He called the ambulance and patient was brought to the hospital. EMS flow sheet not available in the chart. Vital signs on arrival blood pressure 158/75, pulse rate 77, temperature 97.2. Blood test shows normal WBC, hemoglobin 11.7, PT/PTT normal. Sodium was 110, potassium 4.7, renal functions normal, osmolality 247 (280-301), AST elevated 140, ALT 49. Troponin negative, TSH normal, cortisone normal, UA negative. Repeat sodium 112 and then 117. EKG shows sinus rhythm. Patient apparently had a seizure witnessed in the ER. Patient was noted to have rash all over the body. Patient apparently has seen a music education adjunct professor a week ago, who felt it was a rash from Dilantin. Dilantin was discontinued. She was not taking any seizure medication for last 7 days. Patient tells me that she was born with seizure disorder. He is to be on phenobarbital, but apparently was not working, therefore at age 8 years, it was switched to Dilantin. Patient states that she was following up with Dr. Johnson. Patient has not had any seizures since 1959. Patient claims that she is to have grand mal seizures. Patient was on Dilantin 200 mg twice a day, which has been discontinued. Patient was started on Keppra in the ER after patient had the witnessed seizure. Patient denies any history of diabetes, any cardiac stenting, bypass surgery, any history of cancer, CHF or liver disease. Patient's home medications include primidone 250 mg at bedtime, Dilantin 200 mg twice a day, levothyroxine 125 g, potassium, Singulair, Sensipar 30 mg, prednisone 10 mg as directed. Patient admits to drinking a lot of water, but then she said she drinks "one bottle". Patient is not a good historian. Patient denies any use of tobacco or alcohol. Patient's Dilantin level was 4.6 on 05/01/2023. It always stays between 6-8 in subtherapeutic range since 2016. Review of Systems Constitutional: Reports weight gain, Denies chills, Denies fever Eyes: denies blurred vision, denies diplopia, denies pain Ears: deny: decreased hearing, ear discharge Ears, nose, mouth and throat: Denies headache, Denies nasal discharge, Denies sore throat, Denies vertigo Cardiovascular: Denies chest pain, Denies shortness of breath Respiratory: Denies cough, Denies excessive sputum Gastrointestinal: Denies abdominal pain, Denies diarrhea, Denies nausea, Denies vomiting Genitourinary: Denies dysuria, Denies hematuria Musculoskeletal: Denies low back pain, Denies myalgias, Denies neck pain Integumentary: Reports color changes, Reports dryness, Reports pruritus, Reports rash Neurological: Reports as per HPI Psychiatric: Denies anxiety, Denies depression Endocrine: Reports fatigue, Reports weight change Hematologic/Lymphatic: Reports easy bruising, Denies easy bleeding Past Medical History Past Medical History: Seizure Disorder, Thyroid Disorder History of Any Multi-Drug Resistant Organisms: None Reported Past Surgical History: No Surgical Hx Reported Additional Past Surgical History / Comment(s): cataract surgery, non-cancerous stomach growth removal Past Psychological History: No Psychological Hx Reported Smoking Status: Never smoker Medications and Allergies Home Medications Medication Instructions Recorded Confirmed Type Levothyroxine Sodium 125 mcg PO DAILY 05/20/21 05/06/23 History Phenytoin Sodium Extended 200 mg PO BID 05/20/21 05/06/23 History [Dilantin] Primidone 250 mg PO HS 05/20/21 05/06/23 History Potassium Chloride 10 meq PO DAILY 05/23/21 05/06/23 History Betamethasone Dipropionate 1 applic TOPICAL BID 05/06/23 05/06/23 History [Betamethasone Dipropionate 0.05%] Cinacalcet [Sensipar] 30 mg PO DAILY 05/06/23 05/06/23 History Hydrocortisone Oint 1 applic TOPICAL BID 05/06/23 05/06/23 History [Hydrocortisone 2.5% Oint] Montelukast [Singulair] 10 mg PO DAILY 05/06/23 05/06/23 History predniSONE See Taper PO DAILY 05/06/23 05/07/23 History Allergies Allergy/AdvReac Type Severity Reaction Status Date / Time Penicillins Allergy Rash/Hives Verified 05/06/23 20:18 Physical Examination - Vital Signs Vital Signs: Vital Signs Temp Pulse Pulse Resp BP BP BP 05/07/23 07:34 05/07/23 07:00 68 8 L 111/46 05/07/23 06:30 65 15 123/69 05/07/23 06:00 81 14 123/55 05/07/23 05:30 78 16 136/55 05/07/23 05:00 75 16 115/46 05/07/23 04:30 67 14 125/53 05/07/23 04:00 97.8 F 78 20 125/54 05/07/23 03:30 72 16 117/71 05/07/23 03:00 64 16 107/47 05/07/23 02:30 64 15 147/52 05/07/23 02:00 68 16 138/53 05/07/23 01:30 74 16 135/92 05/07/23 01:00 77 16 119/50 05/07/23 00:30 66 17 129/101 05/07/23 00:14 67 15 129/101 05/07/23 00:00 97.6 F 76 18 153/73 05/06/23 23:30 80 20 128/60 05/06/23 23:00 67 14 113/49 05/06/23 22:47 96.7 F L 78 15 166/73 05/06/23 22:30 70 15 147/61 05/06/23 22:15 79 18 112/46 05/06/23 22:00 64 15 127/59 05/06/23 21:45 79 19 117/75 05/06/23 21:30 67 16 135/70 05/06/23 21:15 80 18 142/63 05/06/23 21:00 71 15 140/61 05/06/23 20:45 83 22 166/79 05/06/23 20:30 97.4 F L 81 18 123/55 05/06/23 20:10 96.7 F L 78 15 166/73 05/06/23 19:00 69 20 134/59 05/06/23 18:36 73 24 210/69 05/06/23 16:22 97.2 F L 77 20 158/75 Pulse Ox 05/07/23 07:34 97 05/07/23 07:00 94 L 05/07/23 06:30 93 L 05/07/23 06:00 05/07/23 05:30 95 05/07/23 05:00 96 05/07/23 04:30 90 L 05/07/23 04:00 95 05/07/23 03:30 97 05/07/23 03:00 97 05/07/23 02:30 93 L 05/07/23 02:00 99 05/07/23 01:30 95 05/07/23 01:00 96 05/07/23 00:30 93 L 05/07/23 00:14 93 L 05/07/23 00:00 94 L 05/06/23 23:30 97 05/06/23 23:00 98 05/06/23 22:47 100 05/06/23 22:30 95 05/06/23 22:15 97 05/06/23 22:00 97 05/06/23 21:45 98 05/06/23 21:30 95 05/06/23 21:15 98 05/06/23 21:00 95 05/06/23 20:45 98 05/06/23 20:30 96 05/06/23 20:10 100 05/06/23 19:00 97 05/06/23 18:36 100 05/06/23 16:22 96 Intake and Output 05/06/23 05/07/23 05/07/23 22:59 06:59 14:59 Intake Total 60 270 Output Total 780 1560 Balance -720 -1290 Intake: Intake, IV Titration 60 270 Amount Sodium Chloride 3%( 60 270 Hypertonic) 500 ml @ 30 mls/hr IV .[id number] ONE Rx #:[id number] Output: Urine 780 1560 Uretheral ([place]) 200 Other: Voiding Method Indwelling Catheter Indwelling Catheter Weight 132.2 kg 132.2 kg Patient is an elderly female, who is laying in the bed, in no acute distress. Patient is alert awake. Patient states is the month of May, but she could not tell the year. She says that she lives in [place]. She does not know the name of the current building she is in. Speech and language functions are normal. Patient can name and repeat very well. No aphasia or dysarthria. Attention, concentration is intact and fund of knowledge is slightly limited. Detail cognitive function testing deferred. On cranial nerve examination, pupils are equal, round and reacting to light, visual ramires are full on confrontation, with no neglect on double simultaneous stimulation. Extraocular muscles are intact with no nystagmus. Face is symmetric, tongue protrudes to the midline. Palatal elevation and sensation normal, hearing and shoulder shrug normal, facial sensation normal. No evidence of oral trauma. On muscle strength testing, there is no pronator drift. Patient appears to be generalized swollen. 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 She has difficulty with lifting her arm up because of swelling. Patient wiggles her feet equally. Deep tendon reflexes are symmetric very hypoactive and plantars are flat. Sensory to touch is equal with no neglect on double simultaneous stimulation. Cerebellar function showed no ataxia for [id number] testing. Cannot check in the lower limbs because of swelling. Tone and bulk of muscles normal. Gait deferred.. On general examination, there is no carotid bruit or murmur, S1-S2 audible. Chest is clear on consultation. Abdomen is soft nontender. No organomegaly, bowel sounds present. Patient has moderate to severe peripheral edema. Patient has generalized maculopapular rash over her torso, and also on her face. Also some in the extremities. Results - Laboratory Findings CBC and BMP: 05/07/23 03:18 05/07/23 07:46 Abnormal Lab Findings: Abnormal Labs 05/06/23 05/06/23 05/06/23 17:20 17:20 17:20 RBC 3.59 L Hct 32.8 L Lymphocytes # 0.5 L Sodium 110 L* Chloride 86 L Carbon Dioxide 19 L BUN 19 H Creatinine 0.50 L Glucose 156 H POC Glucose (mg/dL) Osmolality 247 L* AST 140 H ALT 49 H Total Protein 5.9 L Albumin 2.7 L Urine Protein Urine Ketones Urine Blood Urine Mucus 05/06/23 05/06/23 05/06/23 19:20 20:37 23:25 RBC Hct Lymphocytes # Sodium 112 L* Chloride Carbon Dioxide BUN Creatinine Glucose POC Glucose (mg/dL) 147 H Osmolality AST ALT Total Protein Albumin Urine Protein Trace H Urine Ketones 1+ H Urine Blood Small H Urine Mucus Rare H 05/07/23 05/07/23 03:18 03:18 RBC 3.59 L Hct 33.5 L Lymphocytes # 0.5 L Sodium 117 L* Chloride 91 L Carbon Dioxide 20 L BUN Creatinine 0.42 L Glucose 105 H POC Glucose (mg/dL) Osmolality AST 133 H ALT 46 H Total Protein 5.4 L Albumin 2.5 L Urine Protein Urine Ketones Urine Blood Urine Mucus Assessment and Plan Assessment: * Syncope versus seizure, probably provoked due to hyponatremia. * Seizure disorder, off Dilantin for last 7 days may have triggered breakthrough seizure as well. * Dilantin rash, severe. 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 * Hyponatremia * Obesity * Fluid retention. * Developmental delays, mild Plan: * Agree with holding off on Dilantin because of severe rash. * Patient started on Keppra 1000 mg twice a day. * Check EEG to evaluate for interictal epileptiform activity. * Hyponatremia being managed by nephrology. * Patient has not had any more seizures since started on Keppra. * Other medical management as per IM and other specialties. Neurology will follow clinically. * Thank you for the consult. Time with Patient: Greater than 30
--- NOTE | 2023-05-07 14:22 | P.PN ---
Subjective Progress Note Date: 05/07/23 (delayed charting seen at 0945) Patient is a 77-year-old female with a history of hyperparathyroidism, primary gastric adenoma with resection, hypothyroidism, and prior seizure disorder who presented to the ER with dizziness and weakness. While in the ER she had a witnessed seizure. Initial laboratory analysis was remarkable for sodium 110, chloride 86, carbon dioxide 19, BUN 19, creatinine 0.5. Patient was started on normal saline. Serum osmolality came back at 247 and urine osmolality of 722. Nephrology was consulted and the patient was started on 3% saline. She had serial electrolytes ordered and she was admitted to the ICU. I received a phone call from the patient's primary care physician Dr. Chance this morning. He reports that he did blood work recently on 05/01/23 and her sodium was 132, serum ionized calcium was 5.5. She started having significant rash on April 06 teeth which has been refractory to 2 different oral steroids as well as topical steroids. She was seen by dermatology and had the rash biopsied, but he has not been made aware of the biopsy results. He also notes that he discontinued her Dilantin due to her having multiple subtherapeutic levels, no history of seizures in over 20 years, I'm concerned that the Dilantin was related to her dermatitis refractory to steroids. He also notes that she is coming due to have a CT abdomen and pelvis that she has a history of a gastric adenoma that was resected at [facility] and has had a CT of the past that demonstrated lymphadenopathy in the epigastric region. He also reports that she was diagnosed with hyperparathyroidism around 11 months ago and has had a parathyroid uptake which was negative for adenoma. Patient seen and examined at bedside. She is unable to recall much of her history. She denies any current chest pain, shortness breath, nausea, vomiting. She is feeling weak. She does report that her rash is itchy. Vital signs reviewed General: nontoxic, no distress, appears at stated age Gen.: Generalized macular rash over her bilateral shoulder areas, chest, and left lower abdomen and left thigh without desquamation, scale, Crestor, or purulent drainage. Cardiovascular: S1S2 reg, no murmur, positive posterior tibial pulse bilateral, Lungs: Decreased breath sounds bilateral, no rhonchi, no rales , no accessory muscle use Abdominal: soft, nontender to palpation, no guarding, no appreciable organomegaly Ext: no gross muscle atrophy, 2+ edema b/l lower extremities, no contractures Neuro: CN II-XI grossly intact, no focal neuro deficits Psych: Alert, oriented, appropriate affect Assessment/Plan: Severe hyponatremia, possible component of SIADH versus fluid overload Seizure -Case discussed with nephrology at length. We will attempt to slow the correction of the sodium levels by starting D5 W and continue to follow serial sodium levels, await urine sodium. -Seizure precautions -Serial sodium level -Neurology we'll review: Keppra thousand milligrams twice daily, check EEG, further recommendations to follow -Given the patient has not had a seizure in over 20 years and has had a history of gastric malignancy will check head CT Dermatitis -Patient started on doxycycline 100 mg twice daily in case this is lentigo -Attempt to get records from Dr. Razo office History of gastric adenoma now with recurrent lymphadenopathy on prior CT -Check CT abdomen and pelvis for recurrence as hyponatremia appears to have a possible component of SIADH Hyperparathyroidism -Nephrology recommendations -Patient was on Sensipar at home. Calcium level currently normal. We'll check ionized calcium in a.m. and continue to hold. Hypothyroidism -Synthroid -TSH within normal Morbid obesity BMI 48.5 -Outpatient structured weight loss Imaging: None new Data Review: Vitals reviewed in systolic blood pressure and pulse within normal limits. Labs reviewed and remarkable for sodium 12 DVT prophylaxis: Heparin SC Anticipated discharge date: Pending Clinical Course Anticipated discharge place: Pending Clinical Course This dictation was prepared using [employer] voice recognition software. Though every attempt is made to correct errors during dictation some may still exist. Objective - Vital Signs Vital signs: Vital Signs Temp 97.9 F 05/07/23 09:30 Pulse 75 05/07/23 14:00 Resp 13 05/07/23 14:00 BP 125/56 05/07/23 14:00 Pulse Ox 98 05/07/23 14:00 FiO2 Intake & Output 05/06/23 05/07/23 05/07/23 18:59 06:59 18:59 Intake Total 330 1150 Output Total 2340 475 Balance -2009 67 Weight 136.078 kg 132.2 kg 132.2 kg Intake: IV 600 Dextrose 5% in Water 1, 400 000 ml @ 200 mls/hr IV . Q5H [facility] Rx#:[id number] Dextrose 5% in Water 1, 200 000 ml @ 50 mls/hr IV . Q20H [facility] Rx#:[id number] Intake, IV Titration 330 Amount Sodium Chloride 3%( 330 Hypertonic) 500 ml @ 30 mls/hr IV .[id number] ONE Rx #:[id number] Oral 550 Output: Urine 2340 475 Uretheral ([place]) 200 Other: Voiding Method Indwelling Catheter - Labs CBC & Chem 7: 05/07/23 03:18 05/07/23 11:54 Labs: Abnormal Lab Results - Last 24 Hours (Table) 05/06/23 05/06/23 05/06/23 Range/Units 17:20 17:20 17:20 RBC 3.59 L (3.80-5.40) m/uL Hct 32.8 L (34.0-46.0) % Lymphocytes # 0.5 L (1.0-4.8) k/uL Sodium 110 L* (137-145) mmol/L Chloride 86 L (98-107) mmol/L Carbon Dioxide 19 L (22-30) mmol/L BUN 19 H (7-17) mg/dL Creatinine 0.50 L (0.52-1.04) mg/dL Glucose 156 H (74-99) mg/dL POC Glucose (mg/dL) (70-110) mg/dL Osmolality 247 L* (280-301) mosm/kg AST 140 H (14-36) U/L ALT 49 H (4-34) U/L Total Protein 5.9 L (6.3-8.2) g/dL Albumin 2.7 L (3.5-5.0) g/dL Urine Protein (Negative) Urine Ketones (Negative) Urine Blood (Negative) Urine Mucus (None) /hpf 05/06/23 05/06/23 05/06/23 Range/Units 19:20 20:37 23:25 RBC (3.80-5.40) m/uL Hct (34.0-46.0) % Lymphocytes # (1.0-4.8) k/uL Sodium 112 L* (137-145) mmol/L Chloride (98-107) mmol/L Carbon Dioxide (22-30) mmol/L BUN (7-17) mg/dL Creatinine (0.52-1.04) mg/dL Glucose (74-99) mg/dL POC Glucose (mg/dL) 147 H (70-110) mg/dL Osmolality (280-301) mosm/kg AST (14-36) U/L ALT (4-34) U/L Total Protein (6.3-8.2) g/dL Albumin (3.5-5.0) g/dL Urine Protein Trace H (Negative) Urine Ketones 1+ H (Negative) Urine Blood Small H (Negative) Urine Mucus Rare H (None) /hpf 05/07/23 05/07/23 05/07/23 Range/Units 03:18 03:18 07:46 RBC 3.59 L (3.80-5.40) m/uL Hct 33.5 L (34.0-46.0) % Lymphocytes # 0.5 L (1.0-4.8) k/uL Sodium 117 L* 118 L* (137-145) mmol/L Chloride 91 L (98-107) mmol/L Carbon Dioxide 20 L (22-30) mmol/L BUN (7-17) mg/dL Creatinine 0.42 L (0.52-1.04) mg/dL Glucose 105 H (74-99) mg/dL POC Glucose (mg/dL) (70-110) mg/dL Osmolality (280-301) mosm/kg AST 133 H (14-36) U/L ALT 46 H (4-34) U/L Total Protein 5.4 L (6.3-8.2) g/dL Albumin 2.5 L (3.5-5.0) g/dL Urine Protein (Negative) Urine Ketones (Negative) Urine Blood (Negative) Urine Mucus (None) /hpf 05/07/23 Range/Units 11:54 RBC (3.80-5.40) m/uL Hct (34.0-46.0) % Lymphocytes # (1.0-4.8) k/uL Sodium 121 L (137-145) mmol/L Chloride (98-107) mmol/L Carbon Dioxide (22-30) mmol/L BUN (7-17) mg/dL Creatinine (0.52-1.04) mg/dL Glucose (74-99) mg/dL POC Glucose (mg/dL) (70-110) mg/dL Osmolality (280-301) mosm/kg AST (14-36) U/L ALT (4-34) U/L Total Protein (6.3-8.2) g/dL Albumin (3.5-5.0) g/dL Urine Protein (Negative) Urine Ketones (Negative) Urine Blood (Negative) Urine Mucus (None) /hpf
[2023-05-07] MEDS: IOPAMIDOL CONTRAST (ORAL USE) VIAL PO PRN ×2 (14:52→16:00)
[2023-05-07] MEDS ORDERED: FUROSEMIDE 10 MG/ML 2 ML VIAL IV ONE ×2 (16:24→23:58)
--- NOTE | 2023-05-07 17:29 | CT ---
EXAMINATION TYPE: CT brain wo con CT DLP: 1291.4 mGycm, Automated exposure control for dose reduction was used. DATE OF EXAM: 05/07/2023 5:06 PM COMPARISON: None. CLINICAL INDICATION:Female, 77 years old with history of seizure, ams, seizure TECHNIQUE: Brain: Axial CT images of the brain were obtained with coronal and sagittal reformats created and rev iewed. Contrast used: None. Oral contrast used: None. FINDINGS: Brain: Extra-axial spaces: No abnormal extra-axial fluid collections. Ventricular system: Dilatation in proportion to cerebral atrophy. Cerebral parenchyma: Cerebral atrophy. No acute intraparenchymal hemorrhage or mass effect. The katz -white junction is well differentiated. Scattered hypoattenuating areas are seen within the white mat ter. Cerebellum: Unremarkable. Mass effect: No evidence of midline shift. Intracranial vasculature: Atherosclerotic calcifications of the intracranial vessels. Soft tissues: Normal. Calvarium/osseous structures: No depressed skull fracture. Paranasal sinuses and mastoid air cells: Mild scattered paranasal sinus disease. Visualized orbits: Bilateral aphakia IMPRESSION: 1. No acute intracranial process. 2. Nonspecific white matter changes, likely secondary to chronic small vessel ischemic disease.
--- NOTE | 2023-05-07 17:36 | CT ---
EXAMINATION TYPE: CT abdomen pelvis w con CT DLP: 3413.4 mGycm, Automated exposure control for dose reduction was used. DATE OF EXAM: 05/07/2023 5:07 PM COMPARISON: None. CLINICAL INDICATION:Female, 77 years old with history of know lymphadenopathy, Hx gastric adenoma; ab dominal pain TECHNIQUE: Axial CT of the abdomen and pelvis. Sagittal and coronal reformats were created on a [employer] workstation. Contrast used:100 mL of Isovue 300 with IV Contrast, (none if empty) Oral contrast used: with Oral Contrast (none if empty) FINDINGS: LOWER CHEST: The heart is prominent in size. ABDOMEN LIVER: Unremarkable GALLBLADDER AND BILE DUCTS: Unremarkable. PANCREAS: Unremarkable. SPLEEN: Unremarkable. ADRENAL GLANDS: Unremarkable. KIDNEYS AND URETERS: No evidence of hydronephrosis or renal calculus. The ureters are unremarkable. PELVIS BLADDER: Nondistended with Montgomery catheter in place. REPRODUCTIVE: Unremarkable. ABDOMEN & PELVIS STOMACH AND BOWEL: No evidence of bowel obstruction. The appendix is normal. PERITONEUM/RETROPERITONEUM: No evidence of pneumoperitoneum or free fluid. VASCULATURE: No evidence of aortic aneurysm. MUSCULOSKELETAL: No acute osseous abnormalities. Mild disc degeneration changes are present throughou t the thoracolumbar spine. LYMPH NODES: No gross evidence for lymphadenopathy. Retroperitoneal lymph nodes measuring up to 17 mm just before the aortic bifurcation. SOFT TISSUE/ABDOMINAL WALL: Fat-containing umbilical hernia. IMPRESSION: 1. No evidence for acute abdominal process. No obstructive uropathy or evidence for colitis/divertic ulitis. The appendix is normal. 2. Catheter placement air within the lumen of the bladder correlate with urinalysis for cystitis. 3. Fat-containing buccal hernia. 4. Retroperitoneal lymphadenopathy the largest just next aorta near the bifurcation measuring up to 17 mm clinical correlation advised.
[2023-05-08 05:20] LABS: Basophils % (A) 0 %; Eosinophils # (A) 0.3 k/uL (0-0.7); Eosinophils % (A) 4 %; HCT 35.6 % (34.0-46.0); HGB 11.9 gm/dL (11.4-16.0); Lymphocytes # (A) 0.6 k/uL (1.0-4.8); Lymphocytes % (A) 9 %; MCH 31.3 pg (25.0-35.0); MCHC 33.5 g/dL (31.0-37.0); MCV 93.4 fL (80.0-100.0); Mean Platelet Volume 7.2; Monocytes # (A) 0.7 k/uL (0-1.0); Monocytes % (A) 10 %; Neutrophils # (A) 5.1 k/uL (1.3-7.7); Neutrophils % (A) 74 %; Platelet Count 178 k/uL (150-450); RBC 3.81 m/uL (3.80-5.40); RDW 14.6 % (11.5-15.5); WBC 6.9 k/uL (3.8-10.6)
[2023-05-08 05:24] LABS: African American GFR (CKD) >90 (>60 ml/min/1.73 sqM); Anion Gap 5 mmol/L; Blood Urea Nitrogen 16 mg/dL (7-17); Calcium 8.7 mg/dL (8.4-10.2); Carbon Dioxide 20 mmol/L (22-30); Chloride 93 mmol/L (98-107); Glucose 114 mg/dL (74-99); Non-African American GFR(CKD) >90 (>60 ml/min/1.73 sqM); Potassium 4.5 mmol/L (3.5-5.1)
[2023-05-08 05:29] LABS: Sodium 118 mmol/L (137-145)
[2023-05-08] MEDS ORDERED: FUROSEMIDE 10 MG/ML 4 ML VIAL IV STA (05:37)
--- NOTE | 2023-05-08 05:50 | EEG ---
ELECTROENCEPHALOGRAM REPORT PREAMBLE: This is a 77-year-old female with history of seizure disorder, has a breakthrough seizure. EEG FINDINGS: This is a 21-channel digital EEG recorded with video component, utilizing 10/20 international system with referential and bipolar montages. Background consists of moderately well-developed and regulated, somewhat low amplitude of fast frequency beta activity intermixed with some theta activity seen in bihemispheric region. Background seems to be slightly reactive to eye opening and closing. Photic driving response was not clearly seen. Different stages of sleep were not seen. No focal or generalized epileptiform activity was seen. IMPRESSION: This is a mildly abnormal EEG due to presence of excessive low voltage fast frequency activity in bihemispheric region, suggestive of medication effect. No epileptiform activity was seen. MMDIMITRI / JESSAN: [id number] / MTDD
[2023-05-08] MEDS: LEVOTHYROXINE 125 MCG TAB PO SCH (06:01)
[2023-05-08] MEDS ORDERED: SODIUM CHLORIDE 0.9% 1,000 ML IV SCH (08:45)
[2023-05-08] MEDS: CALAMINE/ZINC OXIDE LOTION 177 ML BTL TOPICAL PRN (09:23)
[2023-05-08] MEDS: HEPARIN SODIUM,PORCINE 5,000 UNIT/ML 1 ML VIAL SQ SCH ×2 (09:23→17:44)
[2023-05-08] MEDS: levETIRAcetam IV 500 MG/5 ML VIAL IVP SCH ×2 (09:24→21:01)
[2023-05-08] MEDS: HYDROCORTISONE 1% CREAM 30 GM TUBE TOPICAL SCH ×2 (09:24→21:03)
[2023-05-08] MEDS: DOXYCYCLINE 100 MG CAP PO SCH ×2 (09:24→21:01)
[2023-05-08] MEDS: PANTOPRAZOLE 40 MG/10 ML VIAL IV SCH (09:29)
--- NOTE | 2023-05-08 10:25 | CA ---
Transthoracic Echo Report Name: Margarita Chao Age: 77 Gender: F : 1945 Exam Date: 05/07/2023 14:57 Exam Location: [facility] Ht (in): 65 Wt (lb): 291 Ordering Physician: Francine Maria DO Attending/Referring Phys: [id number], [employer]iance Analyst Rajan Quinteros Procedure CPT: Indications: chf Cardiac Hx: Technical Quality: Very technically difficult study Contrast 1: Total Dose (mL): Contrast 2: Total Dose (mL): MEASUREMENTS (Male / Female) Normal Values FINDINGS Left Ventricle Normal LV size and wall thickness. Left ventricular ejection fraction is estimated at 50-55 %. Right Ventricle Normal right ventricular size. Right Atrium Normal right atrial size. Left Atrium Normal left atrial size. Mitral Valve Mild posterior annulus calcification. Aortic Valve Grossly normal AV. No aortic valve stenosis or regurgitation as visualized. Tricuspid Valve Tricuspid valve not well visualized. Mild TR. Pulmonic Valve Pulmonic valve not well visualized. No pulmonic regurgitation. Pericardium Aorta Normal size aortic root . CONCLUSIONS Study limited to parasternal views only. Patient requested the study to be ended secondary to skin rash chest pain. Limited views because patient did not wish to continue the study. Available views suggest normal LV systolic function. Doppler exam is suboptimal on inadequate because of patient's request Previewed by: Dr. Jessica Vega MD (Electronically Signed) Final Date: 08 May 2023 10:24
--- NOTE | 2023-05-08 10:44 | P.PN ---
Subjective Progress Note Date: 05/08/23 Principal diagnosis: Acute hyponatremia and breakthrough seizure I am seeing this patient in new consultation today and 05/07/2023 for symptomatic hyponatremia. Patient is a 77-year-old white female past medical history significant for seizure disorder, hypothyroidism, and morbid obesity. The patient is a questionable historian. Apparently, the patient presented to the emergency room yesterday afternoon with severe generalized weakness and fall while in the bathroom. She denies hitting her head. There is no obvious head trauma. On arrival to the emergency room, the patient's sodium was found to be severely low at 110. She denies starting any new medications, malignancies. She did reportedly have a seizure while emergency room, which was not described and I'm uncertain of timeframe. It does appear that it was terminated with 2 mg of Ativan. The patient was loaded with Keppra. This is likely due to the patient's hyponatremia, however, the patient's Dilantin was reportedly stopped 7-10 days ago. The patient did develop a rash on her chest and bilateral arms. This may have developed between 1-2 weeks ago; as stated before, the patient is a poor historian. No reported recent seizure in over 10 years. Phenytoin is known to cause Kohler-Simon syndrome, however, this is felt to be less likely the patient has chronically been on this medication. The rash is localized to her chest, upper back, and bilateral arms. It spares mucosal membranes. Rash i s erythemic with yellow crust. Patient describes the rash as pruritic and painful. No fever. Patient has been started on doxycycline. CBC on arrival is unremarkable. No leukocytosis. BMP on arrival showed a sodium of 110, potassium 4.7, chloride 86, serum bicarb 19, BUN 19, creatinine 0.5, glucose 156. Serum osmolality was low at 247. Urine osmolality was 722. Most recent sodium was 112. TSH and cortisol levels were within range. Hypertonic 3% saline is infusing at 30 MLS per hour per nephrology. Patient is edematous. There is a Montgomery catheter with adequate urine production. No further seizure activity noted by nursing staff. Patient is currently sitting up in bed, on room air, in no acute distress. She is drowsy but oriented. She is unable to provide specific dates or times. She has nonfocal generalized weakness throughout. Vital signs are stable. Today on 05/08/2023, doing well, no further episodes of witnessed seizures, sodium is up to 118 today, patient is not receiving any IV fluid at this point, does not seem to be in any distress, she is doing great. She is off the hypertonic saline, her sodium has been fluctuating between 116 and 118 this morning. Hence I will recommend a slow infusion of 0.9 normal saline, planning to get her sodium up to 123 in the next 12 hours, and hopefully we can transfer the patient out of the ICU to a regular medical floor. Patient is relatively asymptomatic, her WBC count 6.9 hemoglobin is 11.9. Electrolytes are relatively unremarkable except for a sodium of 118 Objective - Vital Signs Vital signs: Vital Signs Temp 98.4 F 05/08/23 08:00 Pulse 102 H 05/08/23 09:00 Resp 10 L 05/08/23 09:00 BP 120/53 05/08/23 09:00 Pulse Ox 96 05/08/23 09:00 FiO2 Intake & Output 05/07/23 05/08/23 05/08/23 18:59 06:59 18:59 Intake Total 2868 Output Total 1800 815 600 Balance 1068 -815 -600 Weight 132.2 kg 131.3 kg Intake: IV 1000 Dextrose 5% in Water 1, 800 000 ml @ 200 mls/hr IV . Q5H KARO Rx#:[id number] Dextrose 5% in Water 1, 200 000 ml @ 50 mls/hr IV . Q20H KARO Rx#:[id number] Oral 1868 Output: Urine 1800 815 600 Other: Voiding Method Indwelling Catheter Indwelling Catheter # Bowel Movements 1 - Exam Physical Exam revealed a 77-year-old female obese in no distress Head: Atraumatic, normocephalic. HEENT:[Neck is supple.] [No neck masses.] [No thyromegaly.] [No JVD.] Chest: [Clear throughout, no crackles, no rhonchi, no wheezes.] Cardiac Exam: [Normal S1 and S2, no S3 gallop, no murmur.] Abdomen: [Soft, nontender, no megaly, no rebound, no guarding, normal bowel sounds.] Extremities: [No clubbing, trace of bipedal edema, no cyanosis.] Neurological Exam: [No focal neurologic deficit.], Alert oriented 3. Skin: Diffuse rash noted throughout the whole body especially the trunk area with erythema and yellow crusting - Labs CBC & Chem 7: 05/08/23 04:55 05/08/23 09:48 Labs: Abnormal Lab Results - Last 24 Hours (Table) 05/06/23 05/06/23 05/07/23 Range/Units 23:25 23:53 11:54 Lymphocytes # (1.0-4.8) k/uL Sodium 121 L (137-145) mmol/L Chloride (98-107) mmol/L Carbon Dioxide (22-30) mmol/L Glucose (74-99) mg/dL Ur Random Sodium <20 L (40-220) mmol/L Free Phenytoin <0.8 L (0.8-2.0) ug/mL 05/07/23 05/07/23 05/07/23 Range/Units 15:28 19:28 23:27 Lymphocytes # (1.0-4.8) k/uL Sodium 116 L* 118 L* 118 L* (137-145) mmol/L Chloride (98-107) mmol/L Carbon Dioxide (22-30) mmol/L Glucose (74-99) mg/dL Ur Random Sodium (40-220) mmol/L Free Phenytoin (0.8-2.0) ug/mL 05/08/23 05/08/23 05/08/23 Range/Units 04:55 04:55 09:48 Lymphocytes # 0.6 L (1.0-4.8) k/uL Sodium 118 L* 119 L* (137-145) mmol/L Chloride 93 L (98-107) mmol/L Carbon Dioxide 20 L (22-30) mmol/L Glucose 114 H (74-99) mg/dL Ur Random Sodium (40-220) mmol/L Free Phenytoin (0.8-2.0) ug/mL Assessment and Plan Assessment: Impression Acute hypovolemic hyponatremia, this is not consistent with hypervolemic hyponatremia mostly because of the urine osmolality is way too high to correlate with hypervolemia. I also doubt SIADH, patient did not seem to be euvolemic. And again her serum osmolality is way too high to explain this. Seizure disorder/breakthrough seizure could be exacerbated by the profound hyponatremia on presentation. Bactrim induced dermatitis, being addressed by dermatology. Patient used to be on Dilantin which was placed on hold. History of hypothyroidism Morbid obesity BMI of 49 Recommendation: Continue to monitor in the ICU for now No more 3% saline Patient could be given a very small amount of 0.9 normal saline to get her sodium up to the 123 range in the next 12 hours and then hopefully can transfer out of the ICU. Once sodium is up to 123, we will address the IV fluid again. Continue seizure precautions and seizure medications, this is being addressed by neurology Continue cortisone cream for the rash Continue DVT prophylaxis and GI prophylaxis We'll continue to follow. Time with Patient: Less than 30
--- NOTE | 2023-05-08 10:54 | P.PN ---
Subjective Patient is seen in follow-up for hyponatremia. Sodium level up to 119 this morning. She received 20 mg IV Lasix last night and 40 mg IV this morning. Nonoliguric. Oral intake is just fair. Hemodynamically stable. Vital signs are stable. General: No acute distress. HEENT: Head exam is unremarkable. LUNGS: No audible rhonchi or wheezes. HEART: Rate and Rhythm are regular. ABDOMEN: Soft, obese. EXTREMITITES: 2+ edema. Objective - Vital Signs Vital signs: Vital Signs Temp 98.4 F 05/08/23 08:00 Pulse 102 H 05/08/23 09:00 Resp 10 L 05/08/23 09:00 BP 120/53 05/08/23 09:00 Pulse Ox 96 05/08/23 09:00 FiO2 Intake & Output 05/07/23 05/08/23 05/08/23 18:59 06:59 18:59 Intake Total 2868 Output Total 1800 815 600 Balance 1068 -815 -600 Weight 132.2 kg 131.3 kg Intake: IV 1000 Dextrose 5% in Water 1, 800 000 ml @ 200 mls/hr IV . Q5H KARO Rx#:[id number] Dextrose 5% in Water 1, 200 000 ml @ 50 mls/hr IV . Q20H KARO Rx#:[id number] Oral 1868 Output: Urine 1800 815 600 Other: Voiding Method Indwelling Catheter Indwelling Catheter # Bowel Movements 1 - Labs CBC & Chem 7: 05/08/23 04:55 05/08/23 09:48 Labs: Abnormal Lab Results - Last 24 Hours (Table) 05/06/23 05/06/23 05/07/23 Range/Units 23:25 23:53 11:54 Lymphocytes # (1.0-4.8) k/uL Sodium 121 L (137-145) mmol/L Chloride (98-107) mmol/L Carbon Dioxide (22-30) mmol/L Glucose (74-99) mg/dL Ur Random Sodium <20 L (40-220) mmol/L Free Phenytoin <0.8 L (0.8-2.0) ug/mL 05/07/23 05/07/23 05/07/23 Range/Units 15:28 19:28 23:27 Lymphocytes # (1.0-4.8) k/uL Sodium 116 L* 118 L* 118 L* (137-145) mmol/L Chloride (98-107) mmol/L Carbon Dioxide (22-30) mmol/L Glucose (74-99) mg/dL Ur Random Sodium (40-220) mmol/L Free Phenytoin (0.8-2.0) ug/mL 05/08/23 05/08/23 05/08/23 Range/Units 04:55 04:55 09:48 Lymphocytes # 0.6 L (1.0-4.8) k/uL Sodium 118 L* 119 L* (137-145) mmol/L Chloride 93 L (98-107) mmol/L Carbon Dioxide 20 L (22-30) mmol/L Glucose 114 H (74-99) mg/dL Ur Random Sodium (40-220) mmol/L Free Phenytoin (0.8-2.0) ug/mL Assessment and Plan Plan: Assessment: 1. Symptomatic hyponatremia. Status post 3% saline. Hypervolemic. Sodium level 119 this morning. TSH normal. Urine osmolality 722. Urine sodium less than 20. Cortisol level not low. 2. Seizure. Possibly from hyponatremia. Dilantin stopped a week prior to admission due to rash. Now on Keppra. Neurology following. 3. Edema. 4. Mental delay. Plan: Add 1200 mL fluid restriction. Add IV Lasix 40 mg twice daily. Repeat sodium level this evening. If sodium level not rising, will give dose of samsca. Avoid normal saline patient is hypervolemic. Goal rate of sodium correction 6-8 mmol/L per 24-hour period. Follow-up PTH related peptide.
--- NOTE | 2023-05-08 11:00 | P.PN ---
Subjective Progress Note Date: 05/08/23 Hospital Course: 77-year-old female with a history of hyperparathyroidism, primary gastric adenoma with resection, hypothyroidism, and prior seizure disorder who presented to the ER with dizziness and weakness. While in the ER she had a witnessed seizure. Initial laboratory analysis was remarkable for sodium 110, chloride 86, carbon dioxide 19, BUN 19, creatinine 0.5. Patient was started on normal saline. Serum osmolality came back at 247 and urine osmolality of 722. Nephrology was consulted and the patient was started on 3% saline. She had serial electrolytes ordered and she was admitted to the ICU. Per PCP , blood work recently on 05/01/23 and her sodium was 132, serum ionized calcium was 5.5. She started having significant rash on last month which has been refractory to 2 different oral steroids as well as topical steroids. She was seen by dermatology and had the rash biopsied, but he has not been made aware of the biopsy results. He also notes that he discontinued her Dilantin due to her having multiple subtherapeutic levels, no history of seizures in over 20 years, Concerned that Dilantin was related to her dermatitis refractory to steroids. He also notes that she is coming due to have a CT abdomen and pelvis that she has a history of a gastric adenoma that was resected at [facility] and has had a CT of the past that demonstrated lymphadenopathy in the epigastric region. He also reports that she was diagnosed with hyperparathyroidism around 11 months ago and has had a parathyroid uptake which was negative for adenoma. Subjective: Patient seen and examined at bedside. No acute events overnight. More alert and oriented. Denies any new complaints. Has a Montgomery catheter in place. Pertinent positives and negatives as discussed above, a complete review of systems was performed and all other systems are negative. Vitals Signs Reviewed. General: nontoxic, no distress, appears at stated age Gen.: Generalized macular rash over her bilateral shoulder areas, chest, and left lower abdomen and left thigh without desquamation, scale, Crust, or purulent drainage. Cardiovascular: S1S2 reg, no murmur, positive posterior tibial pulse bilateral, Lungs: Decreased breath sounds bilateral, no rhonchi, no rales , no accessory muscle use Abdominal: soft, nontender to palpation, no guarding, no appreciable organomegaly Ext: no gross muscle atrophy, 2+ edema b/l lower extremities, no contractures Neuro: CN II-XI grossly intact, no focal neuro deficits Psych: Alert, oriented, appropriate affect Data Reviewed Today: Pertinent Labs: WBC 6.9, hemoglobin 11.9, sodium 119, chloride 93, bicarb 20, creatinine 0.54 Imaging: CT abdomen and pelvis shows retroperitoneal lymphadenopathy Assessment and Plan: Severe hyponatremia, likely hypovolemic Seizure with history of seizures -Patient remains in medical ICU on Seizure precautions -Nephrology following -Serial sodium level -Sodium level slowly improving -Status post 3% saline -ICU note reviewed, likely related to hypervolemia -Patient placed on 40 mg IV Lasix per nephrology -Neurology following, patient on thousand milligram IV twice a day Keppra -CT head did not show any acute process -EEG did not show any epileptiform activity Dermatitis -Patient started on doxycycline 100 mg twice daily in case this is lentigo -Attempt to get records from Dr. Razo office -Also started on hydrocortisone cream topical, and calamine lotion History of gastric adenoma now with recurrent lymphadenopathy on prior CT -Retroperitoneal adenopathy persistent Hyperparathyroidism -Nephrology recommendations -Patient was on Sensipar at home -PTH RP level pending Hypothyroidism -Synthroid -TSH within normal Morbid obesity BMI 48.5 -Outpatient structured weight loss DVT ppx: Heparin subcu Code status: Full code Anticipated discharge place: Pending clinical course Anticipated discharge time: Pending clinical course Objective - Vital Signs Vital signs: Vital Signs Temp 98.4 F 05/08/23 08:00 Pulse 102 H 05/08/23 09:00 Resp 10 L 05/08/23 09:00 BP 120/53 05/08/23 09:00 Pulse Ox 96 05/08/23 09:00 FiO2 Intake & Output 05/07/23 05/08/23 05/08/23 18:59 06:59 18:59 Intake Total 2868 Output Total 1800 815 600 Balance 1068 -815 -600 Weight 132.2 kg 131.3 kg Intake: IV 1000 Dextrose 5% in Water 1, 800 000 ml @ 200 mls/hr IV . Q5H [facility]O Rx#:[id number] Dextrose 5% in Water 1, 200 000 ml @ 50 mls/hr IV . Q20H KARO Rx#:[id number] Oral 1868 Output: Urine 1800 815 600 Other: Voiding Method Indwelling Catheter Indwelling Catheter # Bowel Movements 1 - Labs CBC & Chem 7: 05/08/23 04:55 05/08/23 09:48 Labs: Abnormal Lab Results - Last 24 Hours (Table) 05/06/23 05/06/23 05/07/23 Range/Units 23:25 23:53 11:54 Lymphocytes # (1.0-4.8) k/uL Sodium 121 L (137-145) mmol/L Chloride (98-107) mmol/L Carbon Dioxide (22-30) mmol/L Glucose (74-99) mg/dL Ur Random Sodium <20 L (40-220) mmol/L Free Phenytoin <0.8 L (0.8-2.0) ug/mL 05/07/23 05/07/23 05/07/23 Range/Units 15:28 19:28 23:27 Lymphocytes # (1.0-4.8) k/uL Sodium 116 L* 118 L* 118 L* (137-145) mmol/L Chloride (98-107) mmol/L Carbon Dioxide (22-30) mmol/L Glucose (74-99) mg/dL Ur Random Sodium (40-220) mmol/L Free Phenytoin (0.8-2.0) ug/mL 05/08/23 05/08/23 05/08/23 Range/Units 04:55 04:55 09:48 Lymphocytes # 0.6 L (1.0-4.8) k/uL Sodium 118 L* 119 L* (137-145) mmol/L Chloride 93 L (98-107) mmol/L Carbon Dioxide 20 L (22-30) mmol/L Glucose 114 H (74-99) mg/dL Ur Random Sodium (40-220) mmol/L Free Phenytoin (0.8-2.0) ug/mL
--- NOTE | 2023-05-08 19:06 | P.PN ---
Subjective Progress Note Date: 05/08/23 Patient was seen for a follow-up. Patient is laying comfortably in the bed. States rashes getting better. No further seizures. Patient became slightly edgy when asked about questions for orientation. Patient said "don't tell me that again". Objective - Vital Signs Vital signs: Vital Signs Temp 99 F 05/08/23 12:00 Pulse 86 05/08/23 18:00 Resp 20 05/08/23 18:00 BP 110/58 05/08/23 18:00 Pulse Ox 94 L 05/08/23 18:00 FiO2 Intake & Output 05/08/23 05/08/23 05/09/23 06:59 18:59 06:59 Intake Total 730 Output Total 815 1225 Balance -815 -495 Weight 131.3 kg Intake: Oral 730 Output: Urine 815 1225 Other: Voiding Method Indwelling Catheter Indwelling Catheter # Bowel Movements 1 - Labs CBC & Chem 7: 05/08/23 04:55 05/08/23 15:36 Labs: Abnormal Lab Results - Last 24 Hours (Table) 05/06/23 05/06/23 05/07/23 Range/Units 23:25 23:53 19:28 Lymphocytes # (1.0-4.8) k/uL Sodium 118 L* (137-145) mmol/L Chloride (98-107) mmol/L Carbon Dioxide (22-30) mmol/L Glucose (74-99) mg/dL Ur Random Sodium <20 L (40-220) mmol/L Free Phenytoin <0.8 L (0.8-2.0) ug/mL 05/07/23 05/08/23 05/08/23 Range/Units 23:27 04:55 04:55 Lymphocytes # 0.6 L (1.0-4.8) k/uL Sodium 118 L* 118 L* (137-145) mmol/L Chloride 93 L (98-107) mmol/L Carbon Dioxide 20 L (22-30) mmol/L Glucose 114 H (74-99) mg/dL Ur Random Sodium (40-220) mmol/L Free Phenytoin (0.8-2.0) ug/mL 05/08/23 05/08/23 Range/Units 09:48 15:36 Lymphocytes # (1.0-4.8) k/uL Sodium 119 L* 121 L (137-145) mmol/L Chloride (98-107) mmol/L Carbon Dioxide (22-30) mmol/L Glucose (74-99) mg/dL Ur Random Sodium (40-220) mmol/L Free Phenytoin (0.8-2.0) ug/mL Assessment and Plan Assessment: * Syncope versus seizure, probably provoked due to hyponatremia. * Seizure disorder, off Dilantin for last 7 days may have triggered breakthrough seizure as well. * Dilantin rash, severe. Per hand mixer, does not have Kohler-Simon's. * Hyponatremia * Obesity * Fluid retention. * Developmental delays, mild Plan: * Agree with discontinuing Dilantin because of severe rash. Rash has improved since being off Dilantin. * Patient started on Keppra 1000 mg twice a day. Patient is tolerating it well so far. Watch for behavioral issues related to Keppra. In that case may have to switch to a different medication. * EEG performed 05/07/2023 was borderline abnormal because of presence of excessive amount of low voltage fast frequency beta activity suggestive of medication effect. No epileptiform activity was seen. * Hyponatremia being managed by nephrology. Most recent sodium 121. * Patient has not had any more seizures since started on Keppra. * Other medical management as per IM and other specialties. Neurology will follow clinically.
[2023-05-08] MEDS ORDERED: diphenhydrAMINE 25 MG CAP PO STA (20:47)
[2023-05-08] MEDS: FUROSEMIDE 10 MG/ML 4 ML VIAL IV SCH (21:01)
[2023-05-09 03:56] LABS: African American GFR (CKD) >90 (>60 ml/min/1.73 sqM); Anion Gap 6 mmol/L; Blood Urea Nitrogen 24 mg/dL (7-17); Calcium 8.9 mg/dL (8.4-10.2); Carbon Dioxide 20 mmol/L (22-30); Chloride 96 mmol/L (98-107); Glucose 133 mg/dL (74-99); Magnesium 2.1 mg/dL (1.6-2.3); Non-African American GFR(CKD) >90 (>60 ml/min/1.73 sqM); Potassium 4.7 mmol/L (3.5-5.1); Sodium 122 mmol/L (137-145)
[2023-05-09 04:29] LABS: Basophils # (A) 0.1 k/uL (0-0.2); Basophils % (A) 1 %; Eosinophils # (A) 0.3 k/uL (0-0.7); Eosinophils % (A) 4 %; HCT 36.6 % (34.0-46.0); HGB 12.1 gm/dL (11.4-16.0); Hypochromasia Slight; Lymphocytes # (A) 0.7 k/uL (1.0-4.8); Lymphocytes % (A) 9 %; MCH 31.6 pg (25.0-35.0); MCHC 33.2 g/dL (31.0-37.0); MCV 95.2 fL (80.0-100.0); Monocytes # (A) 0.8 k/uL (0-1.0); Monocytes % (A) 10 %; Neutrophils # (A) 5.5 k/uL (1.3-7.7); Neutrophils % (A) 73 %; Platelet Count 168 k/uL (150-450); RBC 3.84 m/uL (3.80-5.40); RDW 14.8 % (11.5-15.5); WBC 7.6 k/uL (3.8-10.6)
[2023-05-09] MEDS: LEVOTHYROXINE 125 MCG TAB PO SCH (07:10)
[2023-05-09] MEDS: PANTOPRAZOLE 40 MG/10 ML VIAL IV SCH (09:39)
[2023-05-09] MEDS: FUROSEMIDE 10 MG/ML 4 ML VIAL IV SCH ×2 (09:39→20:34)
[2023-05-09] MEDS: levETIRAcetam IV 500 MG/5 ML VIAL IVP SCH ×2 (09:39→20:34)
[2023-05-09] MEDS: HEPARIN SODIUM,PORCINE 5,000 UNIT/ML 1 ML VIAL SQ SCH ×4 (09:40→23:19)
[2023-05-09] MEDS: HYDROCORTISONE 1% CREAM 30 GM TUBE TOPICAL SCH ×2 (09:40→20:35)
[2023-05-09] MEDS: DOXYCYCLINE 100 MG CAP PO SCH ×2 (09:40→21:04)
--- NOTE | 2023-05-09 09:57 | P.PN ---
Subjective Progress Note Date: 05/09/23 Principal diagnosis: Acute hyponatremia and breakthrough seizure I am seeing this patient in new consultation today and 05/07/2023 for symptomatic hyponatremia. Patient is a 77-year-old white female past medical history significant for seizure disorder, hypothyroidism, and morbid obesity. The patient is a questionable historian. Apparently, the patient presented to the emergency room yesterday afternoon with severe generalized weakness and fall while in the bathroom. She denies hitting her head. There is no obvious head trauma. On arrival to the emergency room, the patient's sodium was found to be severely low at 110. She denies starting any new medications, malignancies. She did reportedly have a seizure while emergency room, which was not described and I'm uncertain of timeframe. It does appear that it was terminated with 2 mg of Ativan. The patient was loaded with Keppra. This is likely due to the patient's hyponatremia, however, the patient's Dilantin was reportedly stopped 7-10 days ago. The patient did develop a rash on her chest and bilateral arms. This may have developed between 1-2 weeks ago; as stated before, the patient is a poor historian. No reported recent seizure in over 10 years. Phenytoin is known to cause Kohler-Simon syndrome, however, this is felt to be less likely the patient has chronically been on this medication. The rash is localized to her chest, upper back, and bilateral arms. It spares mucosal membranes. Rash i s erythemic with yellow crust. Patient describes the rash as pruritic and painful. No fever. Patient has been started on doxycycline. CBC on arrival is unremarkable. No leukocytosis. BMP on arrival showed a sodium of 110, potassium 4.7, chloride 86, serum bicarb 19, BUN 19, creatinine 0.5, glucose 156. Serum osmolality was low at 247. Urine osmolality was 722. Most recent sodium was 112. TSH and cortisol levels were within range. Hypertonic 3% saline is infusing at 30 MLS per hour per nephrology. Patient is edematous. There is a Montgomery catheter with adequate urine production. No further seizure activity noted by nursing staff. Patient is currently sitting up in bed, on room air, in no acute distress. She is drowsy but oriented. She is unable to provide specific dates or times. She has nonfocal generalized weakness throughout. Vital signs are stable. Today on 05/08/2023, doing well, no further episodes of witnessed seizures, sodium is up to 118 today, patient is not receiving any IV fluid at this point, does not seem to be in any distress, she is doing great. She is off the hypertonic saline, her sodium has been fluctuating between 116 and 118 this morning. Hence I will recommend a slow infusion of 0.9 normal saline, planning to get her sodium up to 123 in the next 12 hours, and hopefully we can transfer the patient out of the ICU to a regular medical floor. Patient is relatively asymptomatic, her WBC count 6.9 hemoglobin is 11.9. Electrolytes are relatively unremarkable except for a sodium of 118 Patient was reevaluated today on 05/09/2023, doing quite well, asymptomatic, her sodium is up to 122, still receiving diuretics by nephrology. Pulmonary-fan the patient is doing great, I will transfer the patient out of the ICU today, and I will see the patient as needed. Nephrology is handling her hyponatremia, correction of hyponatremia is extremely slow, expect the patient to be inpatient for a longer period of time with the lower than expected correction of the hyponatremia. Hence we'll transfer out of the ICU, we'll sign off and see the patient as needed. No active pulmonary issues and no active critical care measures at this point. Objective - Vital Signs Vital signs: Vital Signs Temp 98.1 F 05/09/23 08:00 Pulse 96 05/09/23 09:00 Resp 18 05/09/23 09:00 BP 130/60 05/09/23 09:00 Pulse Ox 94 L 05/09/23 09:00 FiO2 Intake & Output 05/08/23 05/09/23 05/09/23 18:59 06:59 18:59 Intake Total 730 650 Output Total 1225 1410 145 Balance -495 -1410 505 Weight 129.6 kg Intake: Oral 730 650 Output: Urine 1225 1410 145 Other: Voiding Method Indwelling Catheter Indwelling Catheter # Bowel Movements 1 - Exam Physical Exam revealed a 77-year-old female obese in no distress, patient is on room air. Head: Atraumatic, normocephalic. HEENT:[Neck is supple.] [No neck masses.] [No thyromegaly.] [No JVD.] Chest: [Clear throughout, no crackles, no rhonchi, no wheezes.] Cardiac Exam: [Normal S1 and S2, no S3 gallop, no murmur.] Abdomen: [Soft, nontender, no megaly, no rebound, no guarding, normal bowel sounds.] Extremities: [No clubbing, trace of bipedal edema/lymphedema, no cyanosis.] Neurological Exam: [No focal neurologic deficit.], Alert oriented 3. Skin: Diffuse rash noted throughout the whole body especially the trunk area with erythema and yellow crusting - Labs CBC & Chem 7: 05/09/23 03:32 05/09/23 03:32 Labs: Abnormal Lab Results - Last 24 Hours (Table) 05/08/23 05/08/23 05/08/23 Range/Units 09:48 15:36 20:05 Lymphocytes # (1.0-4.8) k/uL Sodium 119 L* 121 L 121 L (137-145) mmol/L Chloride (98-107) mmol/L Carbon Dioxide (22-30) mmol/L BUN (7-17) mg/dL Glucose (74-99) mg/dL 05/09/23 05/09/23 05/09/23 Range/Units 00:07 03:32 03:32 Lymphocytes # 0.7 L (1.0-4.8) k/uL Sodium 121 L 122 L (137-145) mmol/L Chloride 96 L (98-107) mmol/L Carbon Dioxide 20 L (22-30) mmol/L BUN 24 H (7-17) mg/dL Glucose 133 H (74-99) mg/dL Assessment and Plan Assessment: Impression Acute hypovolemic hyponatremia, this is not consistent with hypervolemic hyponatremia mostly because of the urine osmolality is way too high to correlate with hypervolemia. I also doubt SIADH, patient did not seem to be euvolemic. And again her serum osmolality is way too high to explain this. Seizure disorder/breakthrough seizure could be exacerbated by the profound hyponatremia on presentation. Bactrim induced dermatitis, being addressed by dermatology. Patient used to be on Dilantin which was placed on hold. History of hypothyroidism Morbid obesity BMI of 49 Recommendation: Transfer patient to a regular medical floor Continue seizure precautions Nephrology to continue to address her hyponatremia Continue seizure precautions and seizure medications, this is being addressed by neurology Continue cortisone cream for the rash Continue DVT prophylaxis and GI prophylaxis We will sign off for now We'll see the patient on when necessary base Time with Patient: Less than 30
--- NOTE | 2023-05-09 11:02 | P.PN ---
Subjective Progress Note Date: 05/09/23 Hospital Course: 77-year-old female with a history of hyperparathyroidism, primary gastric adeno ma with resection, hypothyroidism, and prior seizure disorder who presented to the ER with dizziness and weakness. While in the ER she had a witnessed seizure. Initial laboratory analysis was remarkable for sodium 110, chloride 86, carbon dioxide 19, BUN 19, creatinine 0.5. Patient was started on normal saline. Serum osmolality came back at 247 and urine osmolality of 722. Nephrology was consulted and the patient was started on 3% saline. She had serial electrolytes ordered and she was admitted to the ICU. Per PCP , blood work recently on 05/01/23 and her sodium was 132, serum ionized calcium was 5.5. She started having significant rash on last month which has been refractory to 2 different oral steroids as well as topical steroids. She was seen by dermatology and had the rash biopsied, but he has not been made aware of the biopsy results. He also notes that he discontinued her Dilantin due to her having multiple subtherapeutic levels, no history of seizures in over 20 years, Concerned that Dilantin was related to her dermatitis refractory to steroids. He also notes that she is coming due to have a CT abdomen and pelvis that she has a history of a gastric adenoma that was resected at [facility] and has had a CT of the past that demonstrated lymphadenopathy in the epigastric region. He also reports that she was diagnosed with hyperparathyroidism around 11 months ago and has had a parathyroid uptake which was negative for adenoma. Sodium improving with IV Lasix. Patient being transferred to the ICU. Subjective: Patient seen and examined at bedside. No acute events overnight. Denies any new complaints. Has a Montgomery catheter in place. Pertinent positives and negatives as discussed above, a complete review of systems was performed and all other systems are negative. Vitals Signs Reviewed. General: nontoxic, no distress, appears at stated age Gen.: Generalized macular rash over her bilateral shoulder areas, chest, and left lower abdomen and left thigh without desquamation, scale, Crust, or purulent drainage. Cardiovascular: S1S2 reg, no murmur, positive posterior tibial pulse bilateral, Lungs: Decreased breath sounds bilateral, no rhonchi, no rales , no accessory muscle use Abdominal: soft, nontender to palpation, no guarding, no appreciable organomegaly Ext: no gross muscle atrophy, 2+ edema b/l lower extremities, no contractures Neuro: CN II-XI grossly intact, no focal neuro deficits Psych: Alert, oriented, appropriate affect Data Reviewed Today: Pertinent Labs: WBC 7.6, hemoglobin 12.1, sodium 122, potassium 4.7, creatinine 0.59 Imaging: No new imaging Assessment and Plan: Severe hyponatremia, likely hypovolaemic Seizure with history of seizures -Seizure Seizure precautions -Nephrology following -Serial sodium level -Sodium level slowly improving -Status post 3% saline -ICU note reviewed, transfer out of ICU -Continue IV Lasix 40 twice a day -Neurology following, continue IV Keppra thousand twice a day -CT head did not show any acute process -EEG did not show any epileptiform activity Dermatitis, improving -Possibly related to Dilantin -Could also be infectious in nature, on doxycycline 100 BID -outpatient biopsy results pending -on hydrocortisone cream topical, and calamine lotion History of gastric adenoma now with recurrent lymphadenopathy on prior CT -Retroperitoneal adenopathy persistent Hyperparathyroidism -Nephrology recommendations -Patient was on Sensipar at home -PTH RP level pending Hypothyroidism -Synthroid -TSH within normal Morbid obesity BMI 48.5 -Outpatient structured weight loss DVT ppx: Heparin subcu Code status: Full code Anticipated discharge place: Pending clinical course Anticipated discharge time: Pending clinical course Objective - Vital Signs Vital signs: Vital Signs Temp 98.1 F 05/09/23 08:00 Pulse 102 H 05/09/23 10:00 Resp 21 05/09/23 10:00 BP 118/55 05/09/23 10:00 Pulse Ox 94 L 05/09/23 10:00 FiO2 Intake & Output 05/08/23 05/09/23 05/09/23 18:59 06:59 18:59 Intake Total 730 650 Output Total 1225 1410 425 Balance -495 -1410 225 Weight 129.6 kg Intake: Oral 730 650 Output: Urine 1225 1410 425 Other: Voiding Method Indwelling Catheter Indwelling Catheter Indwelling Catheter # Bowel Movements 1 - Labs CBC & Chem 7: 05/09/23 03:32 05/09/23 03:32 Labs: Abnormal Lab Results - Last 24 Hours (Table) 05/08/23 05/08/23 05/09/23 Range/Units 15:36 20:05 00:07 Lymphocytes # (1.0-4.8) k/uL Sodium 121 L 121 L 121 L (137-145) mmol/L Chloride (98-107) mmol/L Carbon Dioxide (22-30) mmol/L BUN (7-17) mg/dL Glucose (74-99) mg/dL 05/09/23 05/09/23 Range/Units 03:32 03:32 Lymphocytes # 0.7 L (1.0-4.8) k/uL Sodium 122 L (137-145) mmol/L Chloride 96 L (98-107) mmol/L Carbon Dioxide 20 L (22-30) mmol/L BUN 24 H (7-17) mg/dL Glucose 133 H (74-99) mg/dL
--- NOTE | 2023-05-09 11:52 | P.PN ---
Subjective Patient is seen in follow-up for hyponatremia. Sodium level up to 122 this morning. Maintained on IV Lasix. Nonoliguric. Oral intake is good. On fluid restriction. Hemodynamically stable. Vital signs are stable. General: No acute distress. HEENT: Head exam is unremarkable. LUNGS: No audible rhonchi or wheezes. HEART: Rate and Rhythm are regular. ABDOMEN: Soft, obese. EXTREMITITES: 2+ edema. Objective - Vital Signs Vital signs: Vital Signs Temp 98.1 F 05/09/23 08:00 Pulse 101 H 05/09/23 11:00 Resp 18 05/09/23 11:00 BP 130/48 05/09/23 11:00 Pulse Ox 95 05/09/23 11:00 FiO2 Intake & Output 05/08/23 05/09/23 05/09/23 18:59 06:59 18:59 Intake Total 730 650 Output Total 1225 1410 425 Balance -495 -1410 225 Weight 129.6 kg Intake: Oral 730 650 Output: Urine 1225 1410 425 Other: Voiding Method Indwelling Catheter Indwelling Catheter Indwelling Catheter # Bowel Movements 1 - Labs CBC & Chem 7: 05/09/23 03:32 05/09/23 03:32 Labs: Abnormal Lab Results - Last 24 Hours (Table) 05/08/23 05/08/23 05/09/23 Range/Units 15:36 20:05 00:07 Lymphocytes # (1.0-4.8) k/uL Sodium 121 L 121 L 121 L (137-145) mmol/L Chloride (98-107) mmol/L Carbon Dioxide (22-30) mmol/L BUN (7-17) mg/dL Glucose (74-99) mg/dL 05/09/23 05/09/23 Range/Units 03:32 03:32 Lymphocytes # 0.7 L (1.0-4.8) k/uL Sodium 122 L (137-145) mmol/L Chloride 96 L (98-107) mmol/L Carbon Dioxide 20 L (22-30) mmol/L BUN 24 H (7-17) mg/dL Glucose 133 H (74-99) mg/dL Assessment and Plan Plan: Assessment: 1. Symptomatic hyponatremia. Status post 3% saline. Hypervolemic. Sodium level 122 this morning. TSH normal. Urine osmolality 722. Urine sodium less than 20. Cortisol level not low. 2. Seizure. Possibly from hyponatremia. Dilantin stopped a week prior to admission due to rash. Now on Keppra. Neurology following. 3. Edema. 4. Mental delay. Plan: Maintain 1200 mL fluid restriction. Maintain IV Lasix 40 mg twice daily. Samsca 7.5 mg once now. Repeat sodium level this evening. Avoid normal saline patient is hypervolemic. Follow-up PTH related peptide.
[2023-05-09] MEDS ORDERED: TOLVAPTAN 15 MG TABLET PO ONE (12:00)
[2023-05-09] MEDS: CALAMINE/ZINC OXIDE LOTION 177 ML BTL TOPICAL PRN (20:35)
[2023-05-10] MEDS ORDERED: diphenhydrAMINE 25 MG CAP PO STA (00:56)
[2023-05-10] MEDS: LEVOTHYROXINE 125 MCG TAB PO SCH (06:05)
[2023-05-10] MEDS: PANTOPRAZOLE 40 MG/10 ML VIAL IV SCH (09:35)
[2023-05-10] MEDS: HEPARIN SODIUM,PORCINE 5,000 UNIT/ML 1 ML VIAL SQ SCH ×3 (09:35→23:46)
[2023-05-10] MEDS: FUROSEMIDE 10 MG/ML 4 ML VIAL IV SCH ×2 (09:35→20:22)
[2023-05-10] MEDS: HYDROCORTISONE 1% CREAM 30 GM TUBE TOPICAL SCH ×2 (09:36→20:22)
[2023-05-10] MEDS: DOXYCYCLINE 100 MG CAP PO SCH ×2 (09:36→20:21)
[2023-05-10] MEDS: levETIRAcetam IV 500 MG/5 ML VIAL IVP SCH ×2 (09:50→20:22)
--- NOTE | 2023-05-10 11:01 | P.PN ---
Subjective Progress Note Date: 05/09/23 Patient was seen for a follow-up. Patient is laying comfortably in the bed. States rashes getting better. No further seizures. Patient offers no complaints. Objective - Vital Signs Vital signs: Vital Signs Temp 98.7 F 05/09/23 20:00 Pulse 96 05/09/23 20:00 Resp 18 05/09/23 20:00 BP 121/61 05/09/23 20:00 Pulse Ox 98 05/09/23 20:00 FiO2 Intake & Output 05/09/23 05/09/23 05/10/23 06:59 18:59 06:59 Intake Total 1190 Output Total 1410 1325 100 Balance -1410 -135 -100 Weight 129.6 kg Intake: Oral 1190 Output: Urine 1410 1325 100 Other: Voiding Method Indwelling Catheter Indwelling Catheter Indwelling Catheter - Exam Patient is alert and awake in no distress. Speech and language functions are normal. Rash is better. Detailed testing deferred. - Labs CBC & Chem 7: 05/09/23 03:32 05/09/23 16:36 Labs: Abnormal Lab Results - Last 24 Hours (Table) 05/08/23 05/09/23 05/09/23 Range/Units 20:05 00:07 03:32 Lymphocytes # (1.0-4.8) k/uL Sodium 121 L 121 L 122 L (137-145) mmol/L Chloride 96 L (98-107) mmol/L Carbon Dioxide 20 L (22-30) mmol/L BUN 24 H (7-17) mg/dL Glucose 133 H (74-99) mg/dL 05/09/23 05/09/23 05/09/23 Range/Units 03:32 11:55 16:36 Lymphocytes # 0.7 L (1.0-4.8) k/uL Sodium 123 L 126 L (137-145) mmol/L Chloride (98-107) mmol/L Carbon Dioxide (22-30) mmol/L BUN (7-17) mg/dL Glucose (74-99) mg/dL Assessment and Plan Assessment: * Syncope versus seizure, probably provoked due to hyponatremia. * Seizure disorder, off Dilantin for last 7 days may have triggered breakthrough seizure as well. * Dilantin rash, severe. Per health care assistant, does not have Kohler-Simon's. * Hyponatremia * Obesity * Fluid retention. * Developmental delays, mild Plan: * Agree with discontinuing Dilantin because of severe rash. Rash has improved since being off Dilantin. * Patient started on Keppra 1000 mg twice a day. Patient is tolerating it well so far. Watch for behavioral issues related to Keppra. In that case may have to switch to a different medication. * EEG performed 05/07/2023 was borderline abnormal because of presence of excessive amount of low voltage fast frequency beta activity suggestive of medication effect. No epileptiform activity was seen. * Hyponatremia being managed by nephrology. Most recent sodium 126. * Patient has not had any more seizures since started on Keppra. * Other medical management as per IM and other specialties.
[2023-05-10 11:02] LABS: Magnesium 2.2 mg/dL (1.5-2.4)
[2023-05-10 11:25] LABS: BUN/Creat Ratio 36.67 Ratio (12.00-20.00); Calcium 9.5 mg/dL (8.7-10.3); Carbon Dioxide 24.7 mmol/L (21.6-31.8); Chloride 95 mmol/L (96-109); Glucose 125 mg/dL (70-110); Potassium 6.3 mmol/L (3.5-5.5); Sodium 126 mmol/L (135-145)
[2023-05-10] MEDS ORDERED: TOLVAPTAN 15 MG TABLET PO ONE (12:09)
--- NOTE | 2023-05-10 12:10 | P.PN ---
Subjective Patient is seen in follow-up for hyponatremia. Sodium level up to 126 this morning. Maintained on IV Lasix. Nonoliguric. Oral intake is good. On fluid restriction. Hemodynamically stable. Sitting up in chair. Potassium high but it is a hemolyzed sample. Vital signs are stable. General: No acute distress. HEENT: Head exam is unremarkable. LUNGS: No audible rhonchi or wheezes. HEART: Rate and Rhythm are regular. ABDOMEN: Soft, obese. EXTREMITITES: 2+ edema. Objective - Vital Signs Vital signs: Vital Signs Temp 98.0 F 05/10/23 07:18 Pulse 103 H 05/10/23 07:18 Resp 22 05/10/23 07:18 BP 113/58 05/10/23 07:18 Pulse Ox 97 05/10/23 07:18 FiO2 Intake & Output 05/09/23 05/10/23 05/10/23 18:59 06:59 18:59 Intake Total 1190 7 Output Total 1325 1200 Balance -135 827 Weight 126.5 kg Intake: Oral 1190 2026 Output: Urine 1325 1200 Other: Voiding Method Indwelling Catheter Indwelling Catheter - Labs CBC & Chem 7: 05/09/23 03:32 05/10/23 06:52 Labs: Abnormal Lab Results - Last 24 Hours (Table) 05/09/23 05/09/23 05/10/23 Range/Units 11:55 16:36 06:52 Sodium 123 L 126 L 126 L (137-145) mmol/L Potassium 6.3 H* (3.5-5.5) mmol/L Chloride 95 L (96-109) mmol/L BUN/Creatinine Ratio 36.67 H (12.00-20.00) Ratio Glucose 125 H (70-110) mg/dL Assessment and Plan Plan: Assessment: 1. Symptomatic hyponatremia. Status post 3% saline. Hypervolemic. Sodium level 126 this morning. TSH normal. Urine osmolality 722. Urine sodium less than 20. Cortisol level not low. 2. Seizure. Possibly from hyponatremia. Dilantin stopped a week prior to admission due to rash. Now on Keppra. Neurology following. 3. Edema. Improving with diuresis. 4. Mental delay. 5. Hyperkalemia. Hemolyzed sample. This will be repeated. Plan: Maintain 1200 mL fluid restriction. Maintain IV Lasix 40 mg twice daily. Samsca 7.5 mg once today. Repeat potassium level now. Follow-up PTH related peptide.
--- NOTE | 2023-05-10 13:05 | P.PN ---
Subjective Progress Note Date: 05/10/23 Hospital Course: 77-year-old female with a history of hyperparathyroidism, primary gastric adeno ma with resection, hypothyroidism, and prior seizure disorder who presented to the ER with dizziness and weakness. While in the ER she had a witnessed seizure. Initial laboratory analysis was remarkable for sodium 110, chloride 86, carbon dioxide 19, BUN 19, creatinine 0.5. Patient was started on normal saline. Serum osmolality came back at 247 and urine osmolality of 722. Nephrology was consulted and the patient was started on 3% saline. She had serial electrolytes ordered and she was admitted to the ICU. Per PCP , blood work recently on 05/01/23 and her sodium was 132, serum ionized calcium was 5.5. She started having significant rash on last month which has been refractory to 2 different oral steroids as well as topical steroids. She was seen by dermatology and had the rash biopsied, but he has not been made aware of the biopsy results. He also notes that he discontinued her Dilantin due to her having multiple subtherapeutic levels, no history of seizures in over 20 years, Concerned that Dilantin was related to her dermatitis refractory to steroids. He also notes that she is coming due to have a CT abdomen and pelvis that she has a history of a gastric adenoma that was resected at [facility] and has had a CT of the past that demonstrated lymphadenopathy in the epigastric region. He also reports that she was diagnosed with hyperparathyroidism around 11 months ago and has had a parathyroid uptake which was negative for adenoma. Sodium improving with IV Lasix. Patient being transferred to the ICU. Samsca x1. Fluid restriction. Subjective: Patient seen and examined at bedside. No acute events overnight. Denies any new complaints. Has a Montgomery catheter in place. Pertinent positives and negatives as discussed above, a complete review of systems was performed and all other systems are negative. Vitals Signs Reviewed. General: nontoxic, no distress, appears at stated age Gen.: Generalized macular rash over her bilateral shoulder areas, chest, and left lower abdomen and left thigh without desquamation, scale, Crust, or purulent drainage. Cardiovascular: S1S2 reg, no murmur, positive posterior tibial pulse bilateral, Lungs: Decreased breath sounds bilateral, no rhonchi, no rales , no accessory muscle use Abdominal: soft, nontender to palpation, no guarding, no appreciable organomegaly Ext: no gross muscle atrophy, 2+ edema b/l lower extremities, no contractures Neuro: CN II-XI grossly intact, no focal neuro deficits Psych: Alert, oriented, appropriate affect Data Reviewed Today: Pertinent Labs: Sodium 126, potassium 6.3, hemolyzed, creatinine 0.6, magnesium 2.2 Imaging: No new imaging Assessment and Plan: Severe hyponatremia, likely hypervolemic Breakthrough Seizure with history of epilepsy Hyperkalemia, specimen hemolyzed -Seizure precautions -Nephrology note reviewed, Sammta 1, fluid restriction, continue IV Lasix 40 twice a day -Serial sodium level -Sodium level slowly improving -Status post 3% saline -Repeat potassium -Neurology following, continue IV Keppra thousand twice a day Dermatitis, improving -Possibly related to Dilantin -Could also be infectious in nature, on doxycycline 100 BID -outpatient biopsy results pending -on hydrocortisone cream topical, and calamine lotion History of gastric adenoma now with recurrent lymphadenopathy on prior CT -Retroperitoneal adenopathy persistent Hyperparathyroidism -Nephrology recommendations -Patient was on Sensipar at home -PTH RP level pending Hypothyroidism -Synthroid -TSH within normal Morbid obesity BMI 48.5 -Outpatient structured weight loss DVT ppx: Heparin subcu Code status: Full code Anticipated discharge place: Pending clinical course Anticipated discharge time: Pending clinical course Objective - Vital Signs Vital signs: Vital Signs Temp 98.0 F 05/10/23 07:18 Pulse 103 H 05/10/23 07:18 Resp 22 05/10/23 07:18 BP 113/58 05/10/23 07:18 Pulse Ox 97 05/10/23 07:18 FiO2 Intake & Output 05/09/23 05/10/23 05/10/23 18:59 06:59 18:59 Intake Total 1190 2026 Output Total 1325 1200 Balance -135 827 Weight 126.5 kg Intake: Oral 1190 2026 Output: Urine 1325 1200 Other: Voiding Method Indwelling Catheter Indwelling Catheter - Labs CBC & Chem 7: 05/09/23 03:32 05/10/23 06:52 Labs: Abnormal Lab Results - Last 24 Hours (Table) 05/09/23 05/10/23 Range/Units 16:36 06:52 Sodium 126 L 126 L (137-145) mmol/L Potassium 6.3 H* (3.5-5.5) mmol/L Chloride 95 L (96-109) mmol/L BUN/Creatinine Ratio 36.67 H (12.00-20.00) Ratio Glucose 125 H (70-110) mg/dL
[2023-05-10 13:57] LABS: African American GFR (CKD) >90 (>60 ml/min/1.73 sqM); Anion Gap 4 mmol/L; Blood Urea Nitrogen 28 mg/dL (7-17); Calcium 9.2 mg/dL (8.4-10.2); Carbon Dioxide 24 mmol/L (22-30); Chloride 98 mmol/L (98-107); Glucose 188 mg/dL (74-99); Non-African American GFR(CKD) >90 (>60 ml/min/1.73 sqM); Sodium 126 mmol/L (137-145)
[2023-05-10 13:59] LABS: Potassium 4.7 mmol/L (3.5-5.1)
[2023-05-10] MEDS ORDERED: ACETAMINOPHEN TAB 325 MG TAB PO PRN (18:33)
[2023-05-11] MEDS: LEVOTHYROXINE 125 MCG TAB PO SCH (06:13)
[2023-05-11 07:45] LABS: African American GFR (CKD) >90 (>60 ml/min/1.73 sqM); Anion Gap 2 mmol/L; Blood Urea Nitrogen 33 mg/dL (7-17); Calcium 9.6 mg/dL (8.4-10.2); Carbon Dioxide 28 mmol/L (22-30); Chloride 98 mmol/L (98-107); Glucose 131 mg/dL (74-99); Magnesium 2.3 mg/dL (1.6-2.3); Non-African American GFR(CKD) 89 (>60 ml/min/1.73 sqM); Sodium 128 mmol/L (137-145)
[2023-05-11] MEDS: CALAMINE/ZINC OXIDE LOTION 177 ML BTL TOPICAL PRN (08:01)
[2023-05-11] MEDS: DOXYCYCLINE 100 MG CAP PO SCH ×2 (10:05→20:09)
[2023-05-11] MEDS: levETIRAcetam IV 500 MG/5 ML VIAL IVP SCH ×2 (10:05→20:09)
[2023-05-11] MEDS: PANTOPRAZOLE 40 MG/10 ML VIAL IV SCH (10:06)
[2023-05-11] MEDS: FUROSEMIDE 10 MG/ML 4 ML VIAL IV SCH ×2 (10:06→20:09)
[2023-05-11] MEDS: HEPARIN SODIUM,PORCINE 5,000 UNIT/ML 1 ML VIAL SQ SCH ×3 (10:06→20:09)
[2023-05-11] MEDS: HYDROCORTISONE 1% CREAM 30 GM TUBE TOPICAL SCH ×2 (10:06→20:09)
--- NOTE | 2023-05-11 11:31 | P.PN ---
Subjective Patient is seen in follow-up for hyponatremia. Sodium level up to 128 this morning. Maintained on IV Lasix. Received dose of Samsca yesterday. N onoliguric. Oral intake is good. On fluid restriction. Hemodynamically stable. Vital signs are stable. General: No acute distress. HEENT: Head exam is unremarkable. LUNGS: No audible rhonchi or wheezes. HEART: Rate and Rhythm are regular. ABDOMEN: Soft, obese. EXTREMITITES: 2+ edema. Objective - Vital Signs Vital signs: Vital Signs Temp 98.2 F 05/11/23 07:14 Pulse 91 05/11/23 07:14 Resp 20 05/11/23 07:14 BP 148/73 05/11/23 07:14 Pulse Ox 94 L 05/11/23 07:14 FiO2 Intake & Output 05/10/23 05/11/23 05/11/23 18:59 06:59 18:59 Output Total 600 1200 Balance -600 -1200 Weight 127.5 kg Output: Urine 600 1200 Other: Voiding Method Indwelling Catheter Indwelling Catheter # Voids 2 # Bowel Movements 1 1 - Labs CBC & Chem 7: 05/09/23 03:32 05/11/23 06:49 Labs: Abnormal Lab Results - Last 24 Hours (Table) 05/10/23 05/11/23 Range/Units 13:22 06:49 Sodium 126 L 128 L (137-145) mmol/L BUN 28 H 33 H (7-17) mg/dL Glucose 188 H 131 H (74-99) mg/dL Assessment and Plan Plan: Assessment: 1. Symptomatic hyponatremia. Status post 3% saline. Hypervolemic. Sodium level 128 this morning. TSH normal. Urine osmolality 722. Urine sodium less than 20. Cortisol level not low. 2. Seizure. Possibly from hyponatremia. Dilantin stopped a week prior to admission due to rash. Now on Keppra. Neurology following. 3. Edema. Improving with diuresis. 4. Mental delay. 5. Hyperkalemia. Hemolyzed sample. Repeat potassium normal. Plan: Maintain 1200 mL fluid restriction. Maintain IV Lasix 40 mg twice daily. Repeat Samsca 7.5 mg once today. Follow-up PTH related peptide.
[2023-05-11] MEDS ORDERED: TOLVAPTAN 15 MG TABLET PO ONE (12:00)
--- NOTE | 2023-05-11 14:19 | P.PN ---
Subjective Progress Note Date: 05/11/23 Hospital Course: 77-year-old female with a history of hyperparathyroidism, primary gastric aruna elijah with resection, hypothyroidism, and prior seizure disorder who presented to the ER with dizziness and weakness. While in the ER she had a witnessed seizure. Initial laboratory analysis was remarkable for sodium 110, chloride 86, carbon dioxide 19, BUN 19, creatinine 0.5. Patient was started on normal saline. Serum osmolality came back at 247 and urine osmolality of 722. Nephrology was consulted and the patient was started on 3% saline. She had serial electrolytes ordered and she was admitted to the ICU. Per PCP , blood work recently on 05/01/23 and her sodium was 132, serum ionized calcium was 5.5. She started having significant rash on last month which has been refractory to 2 different oral steroids as well as topical steroids. She was seen by dermatology and had the rash biopsied, but he has not been made aware of the biopsy results. He also notes that he discontinued her Dilantin due to her having multiple subtherapeutic levels, no history of seizures in over 20 years, Concerned that Dilantin was related to her dermatitis refractory to steroids. He also notes that she is coming due to have a CT abdomen and pelvis that she has a history of a gastric adenoma that was resected at [facility] and has had a CT of the past that demonstrated lymphadenopathy in the epigastric region. He also reports that she was diagnosed with hyperparathyroidism around 11 months ago and has had a parathyroid uptake which was negative for adenoma. Sodium improving with IV Lasix. Patient out of the ICU. Samsca x2. Fluid restriction. Subjective: Patient seen and examined at bedside. No acute events overnight. Denies any new complaints. Has a Montgomery catheter in place. Pertinent positives and negatives as discussed above, a complete review of systems was performed and all other systems are negative. Vitals Signs Reviewed. General: nontoxic, no distress, appears at stated age Gen.: Generalized macular rash over her bilateral shoulder areas, chest, and left lower abdomen and left thigh without desquamation, scale, Crust, or purulent drainage. Cardiovascular: S1S2 reg, no murmur, positive posterior tibial pulse bilateral, Lungs: Decreased breath sounds bilateral, no rhonchi, no rales , no accessory muscle use Abdominal: soft, nontender to palpation, no guarding, no appreciable organomegaly Ext: no gross muscle atrophy, 2+ edema b/l lower extremities, no contractures Neuro: CN II-XI grossly intact, no focal neuro deficits Psych: Alert, oriented, appropriate affect Data Reviewed Today: Pertinent Labs: Sodium 128, potassium 5, creatinine 0.62, magnesium 2.3 Imaging: No new imaging Assessment and Plan: Severe hyponatremia, likely hypervolemic Breakthrough Seizure with history of epilepsy -Seizure precautions -Nephrology note reviewed, repeat Samsca 1, fluid restriction, continue IV Lasix 40 twice a day -Serial sodium level -Sodium level slowly improving -Status post 3% saline -Neurology following, continue IV Keppra thousand twice a day Dermatitis, improving -Possibly related to Dilantin -Could also be infectious in nature, on doxycycline 100 BID -outpatient biopsy results pending -on hydrocortisone cream topical, and calamine lotion History of gastric adenoma now with recurrent lymphadenopathy on prior CT -Retroperitoneal adenopathy persistent Hyperparathyroidism -Nephrology recommendations -Patient was on Sensipar at home -PTH RP level pending Hypothyroidism -Synthroid -TSH within normal Morbid obesity BMI 48.5 -Outpatient structured weight loss DVT ppx: Heparin subcu Code status: Full code Anticipated discharge place: Pending clinical course Anticipated discharge time: Pending clinical course Objective - Vital Signs Vital signs: Vital Signs Temp 98.2 F 05/11/23 07:14 Pulse 91 05/11/23 07:14 Resp 20 05/11/23 07:14 BP 148/73 05/11/23 07:14 Pulse Ox 94 L 05/11/23 07:14 FiO2 Intake & Output 05/10/23 05/11/23 05/11/23 18:59 06:59 18:59 Output Total 600 1200 Balance -600 -1200 Weight 127.5 kg Output: Urine 600 1200 Other: Voiding Method Indwelling Catheter Indwelling Catheter # Voids 2 # Bowel Movements 1 1 - Labs CBC & Chem 7: 05/09/23 03:32 05/11/23 06:49 Labs: Abnormal Lab Results - Last 24 Hours (Table) 05/11/23 Range/Units 06:49 Sodium 128 L (137-145) mmol/L BUN 33 H (7-17) mg/dL Glucose 131 H (74-99) mg/dL
--- NOTE | 2023-05-12 02:30 | P.PN ---
Subjective Progress Note Date: 05/10/23 Patient was seen for a follow-up. Patient is sitting comfortably in the recliner. States rashes getting better. No further seizures. Patient offers no complaints. Objective - Vital Signs Vital signs: Vital Signs Temp 98.3 F 05/12/23 01:00 Pulse 93 05/12/23 01:00 Resp 18 05/12/23 01:00 BP 141/61 05/12/23 01:00 Pulse Ox 97 05/12/23 01:00 FiO2 Intake & Output 05/11/23 05/11/23 05/12/23 06:59 18:59 06:59 Output Total 1200 1300 Balance -1200 -1300 Weight 127.5 kg 127.5 kg Output: Urine 1200 1300 Other: Voiding Method Indwelling Catheter # Voids 2 # Bowel Movements 1 - Exam Patient is alert and awake in no distress. Speech and language functions are normal. Rash is better. Detailed testing deferred. Patient has mild exotropia of the right eye. - Labs CBC & Chem 7: 05/09/23 03:32 05/11/23 06:49 Labs: Abnormal Lab Results - Last 24 Hours (Table) 05/11/23 Range/Units 06:49 Sodium 128 L (137-145) mmol/L BUN 33 H (7-17) mg/dL Glucose 131 H (74-99) mg/dL Assessment and Plan Assessment: * Syncope versus seizure, probably provoked due to hyponatremia. * Seizure disorder, off Dilantin for last 7 days may have triggered breakthrough seizure as well. * Dilantin rash, severe. 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 * Hyponatremia * Obesity * Fluid retention. * Developmental delays, mild Plan: * Agree with discontinuing Dilantin because of severe rash. Rash has improved since being off Dilantin. * Patient started on Keppra 1000 mg twice a day. Patient is tolerating it well so far. Watch for behavioral issues related to Keppra. In that case may have to switch to a different medication. * EEG performed 05/07/2023 was borderline abnormal because of presence of excessive amount of low voltage fast frequency beta activity suggestive of medication effect. No epileptiform activity was seen. * Hyponatremia being managed by nephrology. Most recent sodium 126. * Patient has not had any more seizures since started on Keppra. * Other medical management as per IM and other specialties. * Neurology will sign off. Please reconsult neurology if any concerns.
[2023-05-12] MEDS ORDERED: diphenhydrAMINE 25 MG CAP PO STA (04:52)
[2023-05-12] MEDS: LEVOTHYROXINE 125 MCG TAB PO SCH (05:04)
[2023-05-12 07:11] LABS: African American GFR (CKD) >90 (>60 ml/min/1.73 sqM); Anion Gap 4 mmol/L; Blood Urea Nitrogen 40 mg/dL (7-17); Calcium 9.9 mg/dL (8.4-10.2); Carbon Dioxide 28 mmol/L (22-30); Chloride 98 mmol/L (98-107); Glucose 144 mg/dL (74-99); Magnesium 2.3 mg/dL (1.6-2.3); Non-African American GFR(CKD) 89 (>60 ml/min/1.73 sqM); Sodium 130 mmol/L (137-145)
[2023-05-12] MEDS: DOXYCYCLINE 100 MG CAP PO SCH ×2 (08:50→21:14)
[2023-05-12] MEDS: FUROSEMIDE 10 MG/ML 4 ML VIAL IV SCH ×2 (08:50→21:15)
[2023-05-12] MEDS: PANTOPRAZOLE 40 MG/10 ML VIAL IV SCH (08:50)
[2023-05-12] MEDS: HEPARIN SODIUM,PORCINE 5,000 UNIT/ML 1 ML VIAL SQ SCH ×2 (08:52→16:28)
[2023-05-12] MEDS: levETIRAcetam IV 500 MG/5 ML VIAL IVP SCH ×2 (08:52→21:15)
--- NOTE | 2023-05-12 10:58 | P.PN ---
Subjective Progress Note Date: 05/12/23 Hospital Course: 77-year-old female with a history of hyperparathyroidism, primary gastric adenoma with resection, hypothyroidism, and prior seizure disorder who presented to the ER with dizziness and weakness. While in the ER she had a witnessed seizure. Initial laboratory analysis was remarkable for sodium 110, chloride 86, carbon dioxide 19, BUN 19, creatinine 0.5. Patient was started on normal saline. Serum osmolality came back at 247 and urine osmolality of 722. Nephrology was consulted and the patient was started on 3% saline. She had serial electrolytes ordered and she was admitted to the ICU. Per PCP , blood work recently on 05/01/23 and her sodium was 132, serum ionized calcium was 5.5. She started having significant rash on last month which has been refractory to 2 different oral steroids as well as topical steroids. She was seen by dermatology and had the rash biopsied, but he has not been made aware of the biopsy results. He also notes that he discontinued her Dilantin due to her having multiple subtherapeutic levels, no history of seizures in over 20 years, Concerned that Dilantin was related to her dermatitis refractory to steroids. He also notes that she is coming due to have a CT abdomen and pelvis that she has a history of a gastric adenoma that was resected at [facility] and has had a CT of the past that demonstrated lymphadenopathy in the epigastric region. He also reports that she was diagnosed with hyperparathyroidism around 11 months ago and has had a parathyroid uptake which was negative for adenoma. Sodium improving with IV Lasix. Patient out of the ICU. Samsca x2. Fluid restriction. Subjective: Patient seen and examined at bedside. No acute events overnight. Denies any new complaints. Has a Montgomery catheter in place. Pertinent positives and negatives as discussed above, a complete review of systems was performed and all other systems are negative. Vitals Signs Reviewed. General: nontoxic, no distress, appears at stated age Gen.: Generalized macular rash over her bilateral shoulder areas, chest, and left lower abdomen and left thigh without desquamation, scale, Crust, or purulent drainage. Cardiovascular: S1S2 reg, no murmur, positive posterior tibial pulse bilateral, Lungs: Decreased breath sounds bilateral, no rhonchi, no rales , no accessory muscle use Abdominal: soft, nontender to palpation, no guarding, no appreciable organomegaly Ext: no gross muscle atrophy, 2+ edema b/l lower extremities, no contractures Neuro: CN II-XI grossly intact, no focal neuro deficits Psych: Alert, oriented, appropriate affect Data Reviewed Today: Pertinent Labs: Sodium 130, creatinine 0.62, magnesium 2.3 Imaging: No new imaging Assessment and Plan: Severe hyponatremia, likely hypervolemic Breakthrough Seizure with history of epilepsy -Seizure precautions -Nephrology following, continue IV Lasix 40 twice a day -Sodium level slowly improving -Status post 3% saline, Samsca 2 -Neurology following, continue IV Keppra thousand twice a day Dermatitis, improving -Possibly related to Dilantin -Could also be infectious in nature, on doxycycline 100 BID -outpatient biopsy results pending -on hydrocortisone cream topical, and calamine lotion History of gastric adenoma now with recurrent lymphadenopathy on prior CT -Retroperitoneal adenopathy persistent Hyperparathyroidism -Nephrology recommendations -Patient was on Sensipar at home -PTH RP level pending Hypothyroidism -Synthroid -TSH within normal Morbid obesity BMI 48.5 -Outpatient structured weight loss DVT ppx: Heparin subcu Code status: Full code Anticipated discharge place: Subacute rehab Anticipated discharge time: Pending clinical course Objective - Vital Signs Vital signs: Vital Signs Temp 98.4 F 05/12/23 06:54 Pulse 108 H 05/12/23 08:52 Resp 18 05/12/23 08:52 BP 154/67 05/12/23 06:54 Pulse Ox 94 L 05/12/23 08:08 FiO2 Intake & Output 05/11/23 05/12/23 05/12/23 18:59 06:59 18:59 Output Total 1300 576 Balance -1300 -576 Weight 127.5 kg 128 kg Output: Urine 1300 Post Void Residual 576 Other: Voiding Method Bedpan # Voids 2 - Labs CBC & Chem 7: 05/09/23 03:32 05/12/23 06:37 Labs: Abnormal Lab Results - Last 24 Hours (Table) 05/12/23 Range/Units 06:37 Sodium 130 L (137-145) mmol/L BUN 40 H (7-17) mg/dL Glucose 144 H (74-99) mg/dL
[2023-05-12] MEDS: HYDROCORTISONE 1% CREAM 30 GM TUBE TOPICAL SCH ×2 (11:53→21:15)
--- NOTE | 2023-05-12 13:30 | P.PN ---
Subjective Patient is seen in follow-up for hyponatremia. Sodium level up to 130 this morning. Maintained on IV Lasix. Received a dose of Samsca 2 days ago. Nonoliguric. Maintained on IV Lasix. Patient has significant bilateral lower sternum Mittie edema. Oral intake is good. On fluid restriction. Hemodynamically stable. Objective - Vital Signs Vital signs: Vital Signs Temp 98.4 F 05/12/23 06:54 Pulse 108 H 05/12/23 08:52 Resp 18 05/12/23 08:52 BP 154/67 05/12/23 06:54 Pulse Ox 94 L 05/12/23 08:08 FiO2 Intake & Output 05/11/23 05/12/23 05/12/23 18:59 06:59 18:59 Output Total 1300 576 Balance -1300 -576 Weight 127.5 kg 128 kg Output: Urine 1300 Post Void Residual 576 Other: Voiding Method Bedpan # Voids 2 - Exam Patient is awake, comfortable, no acute distress Examination of the heart S1 and S2 Examination of the lungs decreased breath sounds at the bases Abdomen is soft obese nontender Examination lower extremity shows bilateral chronic skin changes with bilateral chronic edema 2+. 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 She can wiggle her toes but is not moving her legs much. - Labs CBC & Chem 7: 05/09/23 03:32 05/12/23 06:37 Labs: Abnormal Lab Results - Last 24 Hours (Table) 05/12/23 Range/Units 06:37 Sodium 130 L (137-145) mmol/L BUN 40 H (7-17) mg/dL Glucose 144 H (74-99) mg/dL Assessment and Plan Assessment: 1. Symptomatic hyponatremia. Status post 3% saline. Status post 1 dose of Samsca 2 days ago. Hypervolemic. Sodium level 130 this morning. TSH normal. Urine osmolality 722. Urine sodium less than 20. Cortisol level not low. Maintained on IV Lasix. 2. Seizure. Possibly from hyponatremia. Dilantin stopped a week prior to admission due to rash. Now on Keppra. Neurology following. 3. Edema. Improving with diuresis. 4. Mental delay. 5. Hyperkalemia. Hemolyzed sample. Repeat potassium normal. Plan: Continue with IV Lasix Repeat sodium in a.m. Continue with fluid restriction.
[2023-05-12] MEDS: CALAMINE/ZINC OXIDE LOTION 177 ML BTL TOPICAL PRN (21:15)
[2023-05-13] MEDS: HEPARIN SODIUM,PORCINE 5,000 UNIT/ML 1 ML VIAL SQ SCH ×3 (00:18→15:43)
[2023-05-13] MEDS: LEVOTHYROXINE 125 MCG TAB PO SCH (06:29)
[2023-05-13 07:43] LABS: African American GFR (CKD) >90 (>60 ml/min/1.73 sqM); Anion Gap 3 mmol/L; Blood Urea Nitrogen 48 mg/dL (7-17); Calcium 9.7 mg/dL (8.4-10.2); Carbon Dioxide 31 mmol/L (22-30); Chloride 99 mmol/L (98-107); Glucose 144 mg/dL (74-99); Non-African American GFR(CKD) 85 (>60 ml/min/1.73 sqM); Potassium 4.3 mmol/L (3.5-5.1); Sodium 133 mmol/L (137-145)
[2023-05-13] MEDS: levETIRAcetam IV 500 MG/5 ML VIAL IVP SCH (07:43)
[2023-05-13] MEDS: PANTOPRAZOLE 40 MG/10 ML VIAL IV SCH (07:43)
[2023-05-13] MEDS: FUROSEMIDE 10 MG/ML 4 ML VIAL IV SCH ×2 (07:43→21:43)
[2023-05-13] MEDS: DOXYCYCLINE 100 MG CAP PO SCH (07:43)
[2023-05-13] MEDS: HYDROCORTISONE 1% CREAM 30 GM TUBE TOPICAL SCH ×2 (07:44→21:43)
--- NOTE | 2023-05-13 12:11 | P.PN ---
Subjective Patient is seen in follow-up for hyponatremia. Sodium level up to 133 this morning. Maintained on IV Lasix. Received a dose of Samsca 3 days ago. Nonoliguric. Maintained on IV Lasix. Patient has significant bilateral lower extremities edema. Oral intake is good. On fluid restriction. Hemodynamically stable. Objective - Vital Signs Vital signs: Vital Signs Temp 97.7 F 05/13/23 08:26 Pulse 109 H 05/13/23 08:26 Resp 19 05/13/23 08:26 BP 152/82 05/13/23 08:26 Pulse Ox 91 L 05/13/23 08:26 FiO2 Intake & Output 05/12/23 05/13/23 05/13/23 18:59 06:59 18:59 Output Total 800 Balance -800 Weight 128 kg Output: Urine 800 Other: Voiding Method Bedpan External Catheter External Catheter # Voids 1 # Bowel Movements 1 - Exam Patient is awake, comfortable, no acute distress Examination of the heart S1 and S2 Examination of the lungs decreased breath sounds at the bases Abdomen is soft obese nontender Examination lower extremity shows bilateral chronic skin changes with bilateral chronic edema 2+. 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 She can wiggle her toes but is not moving her legs much. - Labs CBC & Chem 7: 05/09/23 03:32 05/13/23 07:10 Labs: Abnormal Lab Results - Last 24 Hours (Table) 05/13/23 Range/Units 07:10 Sodium 133 L (137-145) mmol/L Carbon Dioxide 31 H (22-30) mmol/L BUN 48 H (7-17) mg/dL Glucose 144 H (74-99) mg/dL Assessment and Plan Assessment: 1. Symptomatic hyponatremia. Status post 3% saline. Status post 1 dose of Samsca 3 days ago. Hypervolemic. Sodium level 133 this morning. TSH normal. Urine osmolality 722. Urine sodium less than 20. Cortisol level not low. Maintained on IV Lasix. 2. Seizure. Possibly from hyponatremia. Dilantin stopped a week prior to admission due to rash. Now on Keppra. Neurology following. 3. Edema. Improving with diuresis. 4. Mental delay. 5. Hyperkalemia. Hemolyzed sample. Repeat potassium normal. Plan: Continue with IV Lasix Repeat sodium in a.m. Continue with fluid restriction.
--- NOTE | 2023-05-13 14:19 | P.PN ---
Subjective Progress Note Date: 05/13/23 Hospital Course: 77-year-old female with a history of hyperparathyroidism, primary gastric adenoma with resection, hypothyroidism, and prior seizure disorder who presented to the ER with dizziness and weakness. While in the ER she had a witnessed seizure. Initial laboratory analysis was remarkable for sodium 110, chloride 86, carbon dioxide 19, BUN 19, creatinine 0.5. Patient was started on normal saline. Serum osmolality came back at 247 and urine osmolality of 722. Nephrology was consulted and the patient was started on 3% saline. She had serial electrolytes ordered and she was admitted to the ICU. Per PCP , blood work recently on 05/01/23 and her sodium was 132, serum ionized calcium was 5.5. She started having significant rash on last month which has been refractory to 2 different oral steroids as well as topical steroids. She was seen by dermatology and had the rash biopsied, but he has not been made aware of the biopsy results. He also notes that he discontinued her Dilantin due to her having multiple subtherapeutic levels, no history of seizures in over 20 years, Concerned that Dilantin was related to her dermatitis refractory to steroids. He also notes that she is coming due to have a CT abdomen and pelvis that she has a history of a gastric adenoma that was resected at [facility] and has had a CT of the past that demonstrated lymphadenopathy in the epigastric region. He also reports that she was diagnosed with hyperparathyroidism around 11 months ago and has had a parathyroid uptake which was negative for adenoma. Sodium improving with IV Lasix. Patient out of the ICU. Samsca x2. Fluid restriction. Subjective: Patient seen and examined at bedside. No acute events overnight. Denies any new complaints. Has a Montgomery catheter in place. Pertinent positives and negatives as discussed above, a complete review of systems was performed and all other systems are negative. Vitals Signs Reviewed. General: nontoxic, no distress, appears at stated age Gen.: Generalized macular rash over her bilateral shoulder areas, chest, and left lower abdomen and left thigh without desquamation, scale, Crust, or purulent drainage. Cardiovascular: S1S2 reg, no murmur, positive posterior tibial pulse bilateral, Lungs: Decreased breath sounds bilateral, no rhonchi, no rales , no accessory muscle use Abdominal: soft, nontender to palpation, no guarding, no appreciable organomegaly Ext: no gross muscle atrophy, 2+ edema b/l lower extremities, no contractures Neuro: CN II-XI grossly intact, no focal neuro deficits Psych: Alert, oriented, appropriate affect Data Reviewed Today: Pertinent Labs: Sodium 133, creatinine 0.7 Imaging: No new imaging Assessment and Plan: Severe hyponatremia, likely hypervolemic Breakthrough Seizure with history of epilepsy -Seizure precautions -Nephrology note reviewed., continue IV Lasix 40 twice a day -Sodium level slowly improving -Status post 3% saline, Samsca 2 -Neurology signed off, IV Keppra change to oral Keppra Dermatitis, improving -Possibly related to Dilantin -doxycycline discontinued -on hydrocortisone cream topical, and calamine lotion History of gastric adenoma now with recurrent lymphadenopathy on prior CT -Retroperitoneal adenopathy persistent Hyperparathyroidism -Nephrology recommendations -Patient was on Sensipar at home -PTH RP level pending Hypothyroidism -Synthroid -TSH within normal Morbid obesity BMI 48.5 -Outpatient structured weight loss DVT ppx: Heparin subcu Code status: Full code Anticipated discharge place: Subacute rehab Anticipated discharge time: Pending clinical course Objective - Vital Signs Vital signs: Vital Signs Temp 97.7 F 05/13/23 08:26 Pulse 109 H 05/13/23 08:26 Resp 19 05/13/23 08:26 BP 152/82 05/13/23 08:26 Pulse Ox 91 L 05/13/23 08:26 FiO2 Intake & Output 05/12/23 05/13/23 05/13/23 18:59 06:59 18:59 Output Total 800 Balance -800 Weight 128 kg Output: Urine 800 Other: Voiding Method Bedpan External Catheter External Catheter # Voids 1 # Bowel Movements 1 - Labs CBC & Chem 7: 05/09/23 03:32 05/13/23 07:10 Labs: Abnormal Lab Results - Last 24 Hours (Table) 05/13/23 Range/Units 07:10 Sodium 133 L (137-145) mmol/L Carbon Dioxide 31 H (22-30) mmol/L BUN 48 H (7-17) mg/dL Glucose 144 H (74-99) mg/dL
[2023-05-13] MEDS: levETIRAcetam 500 MG TAB PO SCH (21:43)
[2023-05-14] MEDS: HEPARIN SODIUM,PORCINE 5,000 UNIT/ML 1 ML VIAL SQ SCH ×4 (00:34→23:03)
[2023-05-14] MEDS: LEVOTHYROXINE 125 MCG TAB PO SCH (06:40)
[2023-05-14 07:41] LABS: African American GFR (CKD) >90 (>60 ml/min/1.73 sqM); Anion Gap 4 mmol/L; Blood Urea Nitrogen 53 mg/dL (7-17); Calcium 9.8 mg/dL (8.4-10.2); Carbon Dioxide 29 mmol/L (22-30); Chloride 97 mmol/L (98-107); Glucose 121 mg/dL (74-99); Magnesium 2.5 mg/dL (1.6-2.3); Non-African American GFR(CKD) 86 (>60 ml/min/1.73 sqM); Potassium 4.8 mmol/L (3.5-5.1); Sodium 130 mmol/L (137-145)
[2023-05-14] MEDS: PANTOPRAZOLE 40 MG/10 ML VIAL IV SCH (09:04)
[2023-05-14] MEDS: FUROSEMIDE 10 MG/ML 4 ML VIAL IV SCH ×2 (09:05→20:48)
[2023-05-14] MEDS: levETIRAcetam 500 MG TAB PO SCH ×2 (09:05→20:48)
[2023-05-14] MEDS: HYDROCORTISONE 1% CREAM 30 GM TUBE TOPICAL SCH ×2 (09:05→20:48)
--- NOTE | 2023-05-14 13:06 | P.PN ---
Subjective Patient is seen in follow-up for hyponatremia. Sodium level 130 this morning. Maintained on IV Lasix. Received a dose of Samsca few days ago. Nonoliguric. Maintained on IV Lasix. Patient has significant bilateral lower extremities edema. Oral intake is good. On fluid restriction. Hemodynamically stable. Objective - Vital Signs Vital signs: Vital Signs Temp 98.0 F 05/14/23 08:11 Pulse 100 05/14/23 08:11 Resp 17 05/14/23 08:11 BP 124/68 05/14/23 08:11 Pulse Ox 98 05/14/23 09:26 FiO2 Intake & Output 05/13/23 05/14/23 05/14/23 18:59 06:59 18:59 Output Total 550 Balance -550 Weight 128.5 kg Output: Urine 550 Other: Voiding Method External Catheter External Catheter External Catheter # Voids 2 - Exam Patient is awake, comfortable, no acute distress Examination of the heart S1 and S2 Examination of the lungs decreased breath sounds at the bases Abdomen is soft obese nontender Examination lower extremity shows bilateral chronic skin changes with bilateral chronic edema 2+. 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 She can wiggle her toes but is not moving her l egs much. - Labs CBC & Chem 7: 05/09/23 03:32 05/14/23 05:39 Labs: Abnormal Lab Results - Last 24 Hours (Table) 05/14/23 Range/Units 05:39 Sodium 130 L (137-145) mmol/L Chloride 97 L (98-107) mmol/L BUN 53 H (7-17) mg/dL Glucose 121 H (74-99) mg/dL Magnesium 2.5 H (1.6-2.3) mg/dL Assessment and Plan Assessment: 1. Symptomatic hyponatremia. Status post 3% saline. Status post 1 dose of Samsca few days ago. Hypervolemic. Sodium level 130 this morning. TSH normal. Urine osmolality 722. Urine sodium less than 20. Cortisol level not low. Maria Teresa ntained on IV Lasix. 2. Seizure. Possibly from hyponatremia. Dilantin stopped a week prior to adm ission due to rash. Now on Keppra. Neurology following. 3. Edema. Improving with diuresis. 4. Mental delay. 5. Hyperkalemia. Hemolyzed sample. Repeat potassium normal. Plan: Continue with IV Lasix Repeat sodium in a.m. Continue with fluid restriction.
--- NOTE | 2023-05-14 13:24 | P.PN ---
Subjective Progress Note Date: 05/14/23 Hospital Course: 77-year-old female with a history of hyperparathyroidism, primary gastric adeno ma with resection, hypothyroidism, and prior seizure disorder who presented to the ER with dizziness and weakness. While in the ER she had a witnessed seizure. Initial laboratory analysis was remarkable for sodium 110, chloride 86, carbon dioxide 19, BUN 19, creatinine 0.5. Patient was started on normal saline. Serum osmolality came back at 247 and urine osmolality of 722. Nephrology was consulted and the patient was started on 3% saline. She had serial electrolytes ordered and she was admitted to the ICU. Per PCP , blood work recently on 05/01/23 and her sodium was 132, serum ionized calcium was 5.5. She started having significant rash on last month which has been refractory to 2 different oral steroids as well as topical steroids. She was seen by dermatology and had the rash biopsied, but he has not been made aware of the biopsy results. He also notes that he discontinued her Dilantin due to her having multiple subtherapeutic levels, no history of seizures in over 20 years, Concerned that Dilantin was related to her dermatitis refractory to steroids. He also notes that she is coming due to have a CT abdomen and pelvis that she has a history of a gastric adenoma that was resected at [facility] and has had a CT of the past that demonstrated lymphadenopathy in the epigastric region. He also reports that she was diagnosed with hyperparathyroidism around 11 months ago and has had a parathyroid uptake which was negative for adenoma. Sodium improving with IV Lasix. Patient out of the ICU. Samsca x2. Fluid restriction. Subjective: Patient seen and examined at bedside. No acute events overnight. Denies any new complaints. Has a Montgomery catheter in place. Pertinent positives and negatives as discussed above, a complete review of systems was performed and all other systems are negative. Vitals Signs Reviewed. General: nontoxic, no distress, appears at stated age Gen.: Generalized macular rash over her bilateral shoulder areas, chest, and left lower abdomen and left thigh without desquamation, scale, Crust, or purulent drainage. Cardiovascular: S1S2 reg, no murmur, positive posterior tibial pulse bilateral, Lungs: Decreased breath sounds bilateral, no rhonchi, no rales , no accessory muscle use Abdominal: soft, nontender to palpation, no guarding, no appreciable organomegaly Ext: no gross muscle atrophy, 2+ edema b/l lower extremities, no contractures Neuro: CN II-XI grossly intact, no focal neuro deficits Psych: Alert, oriented, appropriate affect Data Reviewed Today: Pertinent Labs: Sodium 1:30, creatinine 0.67, magnesium 2.5 Imaging: No new imaging Assessment and Plan: Severe hyponatremia, likely hypervolemic, improving Breakthrough Seizure with history of epilepsy -Seizure precautions -Nephrology note reviewed., continue IV Lasix 40 twice a day, fluid restriction -Sodium level slowly improving -Status post 3% saline, Samsca 2 -Neurology signed off, IV Keppra change to oral Keppra Dermatitis, improving -Possibly related to Dilantin -on hydrocortisone cream topical, and calamine lotion History of gastric adenoma now with recurrent lymphadenopathy on prior CT -Retroperitoneal adenopathy persistent -Needs further workup outpatient Hyperparathyroidism -Nephrology recommendations -Patient was on Sensipar at home -PTH RP level pending Hypothyroidism -Synthroid -TSH within normal Morbid obesity BMI 48.5 -Outpatient structured weight loss DVT ppx: Heparin subcu Code status: Full code Anticipated discharge place: Subacute rehab Anticipated discharge time: Once patient is on oral Lasix Objective - Vital Signs Vital signs: Vital Signs Temp 98.0 F 05/14/23 08:11 Pulse 100 05/14/23 08:11 Resp 17 05/14/23 08:11 BP 124/68 05/14/23 08:11 Pulse Ox 98 05/14/23 09:26 FiO2 Intake & Output 05/13/23 05/14/23 05/14/23 18:59 06:59 18:59 Output Total 550 Balance -550 Weight 128.5 kg Output: Urine 550 Other: Voiding Method External Catheter External Catheter External Catheter # Voids 2 - Labs CBC & Chem 7: 05/09/23 03:32 05/14/23 05:39 Labs: Abnormal Lab Results - Last 24 Hours (Table) 05/14/23 Range/Units 05:39 Sodium 130 L (137-145) mmol/L Chloride 97 L (98-107) mmol/L BUN 53 H (7-17) mg/dL Glucose 121 H (74-99) mg/dL Magnesium 2.5 H (1.6-2.3) mg/dL
[2023-05-15] MEDS ORDERED: diphenhydrAMINE 25 MG CAP PO STA (05:21)
[2023-05-15] MEDS: LEVOTHYROXINE 125 MCG TAB PO SCH (05:32)
[2023-05-15 06:53] LABS: African American GFR (CKD) >90 (>60 ml/min/1.73 sqM); Anion Gap 2 mmol/L; Blood Urea Nitrogen 50 mg/dL (7-17); Calcium 9.7 mg/dL (8.4-10.2); Carbon Dioxide 30 mmol/L (22-30); Chloride 100 mmol/L (98-107); Glucose 128 mg/dL (74-99); Non-African American GFR(CKD) 88 (>60 ml/min/1.73 sqM); Sodium 132 mmol/L (137-145)
[2023-05-15 06:58] LABS: Magnesium 2.4 mg/dL (1.6-2.3); Potassium 4.8 mmol/L (3.5-5.1)
[2023-05-15 09:25] VITALS: RESP 18
[2023-05-15] MEDS: FUROSEMIDE 10 MG/ML 4 ML VIAL IV SCH (09:47)
[2023-05-15] MEDS: PANTOPRAZOLE 40 MG/10 ML VIAL IV SCH (09:47)
[2023-05-15] MEDS: HYDROCORTISONE 1% CREAM 30 GM TUBE TOPICAL SCH (09:48)
[2023-05-15] MEDS: HEPARIN SODIUM,PORCINE 5,000 UNIT/ML 1 ML VIAL SQ SCH (09:48)
[2023-05-15] MEDS: levETIRAcetam 500 MG TAB PO SCH (09:48)
--- NOTE | 2023-05-15 12:47 | P.DS ---
Providers Date of admission: 05/06/23 19:54 Expected date of discharge: 05/15/23 Attending physician: Judi Bond MD Consults: 05/06/23 19:47 Consult Physician Routine Consulting Provider: Su Starks Consult Reason/Comments: icu Do you want consulting provider notified?: Yes Consult Physician Routine Consulting Provider: Kerrie Dumont Consult Reason/Comments: hypoNa Do you want consulting provider notified?: Yes 05/06/23 20:04 Consult Physician Routine Consulting Provider: Shade Richards Consult Reason/Comments: sz Do you want consulting provider notified?: Yes Primary care physician: Chung Chance MD Hospital Course: 77-year-old female with a history of hyperparathyroidism, primary gastric adenoma with resection, hypothyroidism, and prior seizure disorder who presented to the ER with dizziness and weakness. While in the ER she had a witnessed seizure. Initial laboratory analysis was remarkable for sodium 110, chloride 86, carbon dioxide 19, BUN 19, creatinine 0.5. Patient was started on normal saline. Serum osmolality came back at 247 and urine osmolality of 722. Nephrology was consulted and the patient was started on 3% saline. She had serial electrolytes ordered and she was admitted to the ICU. Per PCP , blood work recently on 05/01/23 and her sodium was 132, serum ionized calcium was 5.5. She started having significant rash on last month which has been refractory to 2 different oral steroids as well as topical steroids. She was seen by dermatology and had the rash biopsied, but he has not been made aware of the biopsy results. He also notes that he discontinued her Dilantin due to her having multiple subtherapeutic levels, no history of seizures in over 20 years, Concerned that Dilantin was related to her dermatitis refractory to steroids. He also notes that she is coming due to have a CT abdomen and pelvis that she has a history of a gastric adenoma that was resected at [facility] and has had a CT of the past that demonstrated lymphadenopathy in the epigastric region. He also reports that she was diagnosed with hyperparathyroidism around 11 months ago and has had a parathyroid uptake which was negative for adenoma. Sodium improving with IV Lasix. Patient out of the ICU. Samsca x2. Fluid restriction. 05/15 Patient was seen and examined. She is upset that she couldnt go to rehab yesterday. She has no other complaints. Sodium level is 132 today. Case was discussed with Dr. Dumont who recommends Lasix 40 mg PO BID and is OK with discharge to SNF. Advised to follow up with her PCP within 1-2 days of disch arge. We will give her an appointment with GI Dr. Gonzalez and Oncology Dr. Wynn for history of gastric adenoma with recurrent LAD as seen on CT. Pertinent studies include chest x-ray, echocardiogram, brain CT, CTA PE, EEG. Vitals Signs: BP 158/74. HR 101. T 97.6F. RR 18. 97% on RA. General: nontoxic, no distress, appears at stated age Gen.: Generalized macular rash over her bilateral shoulder areas, chest, and left lower abdomen and left thigh without desquamation, scale, Crust, or purulent drainage. Cardiovascular: S1S2 reg, no murmur Lungs: Decreased breath sounds bilateral, no rhonchi, no rales , no accessory muscle use Abdominal: soft, nontender to palpation Ext: no gross muscle atrophy, 2+ edema b/l lower extremities, no contractures Neuro: no focal neuro deficits Psych: Alert, oriented, appropriate affect Discharge diagnosis: Severe hyponatremia, likely hypervolemic, improving Breakthrough Seizure with history of epilepsy Dermatitis, improving History of gastric adenoma now with recurrent lymphadenopathy on prior CT Hyperparathyroidism Hypothyroidism Morbid obesity BMI 48.5 This complex discharge took 35 minutes to complete. Patient Condition at Discharge: Stable Plan - Discharge Summary Discharge Rx Participant: No New Discharge Prescriptions: New levETIRAcetam [Keppra] 1,000 mg PO Q12HR tab Furosemide [Lasix] 40 mg PO BID@0900,1600 tab Pantoprazole [Protonix] 40 mg PO DAILY #30 tab Calamine/Zinc Oxide Lotion [Calamine Lotion] 1 applic TOPICAL TID PRN each PRN Reason: Skin Irritation Continue Primidone 250 mg PO HS Potassium Chloride 10 meq PO DAILY Montelukast [Singulair] 10 mg PO DAILY Cinacalcet [Sensipar] 30 mg PO DAILY predniSONE See Taper PO DAILY Levothyroxine Sodium 125 mcg PO DAILY Hydrocortisone Oint [Hydrocortisone 2.5% Oint] 1 applic TOPICAL BID Betamethasone Dipropionate [Betamethasone Dipropionate 0.05%] 1 applic TOPICAL BID Discontinued Phenytoin Sodium Extended [Dilantin] 200 mg PO BID Discharge Medication List Levothyroxine Sodium 125 mcg PO DAILY 05/20/21 [History] Primidone 250 mg PO HS 05/20/21 [History] Potassium Chloride 10 meq PO DAILY 05/23/21 [History] Betamethasone Dipropionate [Betamethasone Dipropionate 0.05%] 1 applic TOPICAL BID 05/06/23 [History] Cinacalcet [Sensipar] 30 mg PO DAILY 05/06/23 [History] Hydrocortisone Oint [Hydrocortisone 2.5% Oint] 1 applic TOPICAL BID 05/06/23 [History] Montelukast [Singulair] 10 mg PO DAILY 05/06/23 [History] predniSONE See Taper PO DAILY 05/06/23 [History] Calamine/Zinc Oxide Lotion [Calamine Lotion] 1 applic TOPICAL TID PRN each 05/15/23 [Rx] Furosemide [Lasix] 40 mg PO BID@0900,1600 tab 05/15/23 [Rx] Pantoprazole [Protonix] 40 mg PO DAILY #30 tab 05/15/23 [Rx] levETIRAcetam [Keppra] 1,000 mg PO Q12HR tab 05/15/23 [Rx] Follow up Appointment(s)/Referral(s): Chung Chance MD [Primary Care Provider] - 1-2 days Yanni Gonzalez MD [STAFF PHYSICIAN] - 1 Week Ernesto Wynn MD [STAFF PHYSICIAN] - 1 Week Activity/Diet/Wound Care/Special Instructions: Diet: 1.5 L fluid restriction Follow up with your PCP within 1-2 days of discharge. Follow up with GI Dr. Gonzalez and Oncology Dr. Wynn regarding history of gastric adenoma with increased lymphadenopathy seen on CT. Discharge Disposition: TRANSFER TO SNF/F
[2023-05-15 13:21] VITALS: BMI 46.9
--- NOTE | 2023-05-15 13:22 | P.PN ---
Subjective Patient is seen in follow-up for hyponatremia. Sodium level 132 this morning. Maintained on IV Lasix. Received a dose of Samsca few days ago. Nonoliguric. Maintained on IV Lasix. Patient has significant bilateral lower extremities edema. Oral intake is good. On fluid restriction. Hemodynamically stable. Objective - Vital Signs Vital signs: Vital Signs Temp 97.6 F 05/15/23 07:24 Pulse 101 H 05/15/23 07:24 Resp 18 05/15/23 07:24 BP 158/74 05/15/23 07:24 Pulse Ox 95 05/15/23 12:51 FiO2 Intake & Output 05/14/23 05/15/23 05/15/23 18:59 06:59 18:59 Intake Total 480 240 Output Total 900 1250 300 Balance -900 -770 -60 Weight 128 kg Intake: Oral 480 240 Output: Urine 900 1250 300 Other: Voiding Method External Catheter External Catheter External Catheter # Bowel Movements 1 - Exam Patient is awake, comfortable, no acute distress Examination of the heart S1 and S2 Examination of the lungs decreased breath sounds at the bases Abdomen is soft obese nontender Examination lower extremity shows bilateral chronic skin changes with bilateral chronic edema 2+. SUPERVISING ARCHITECT exam shows patient is weak. She can wiggle her toes but is not moving her legs much. - Labs CBC & Chem 7: 05/09/23 03:32 05/15/23 05:22 Labs: Abnormal Lab Results - Last 24 Hours (Table) 05/15/23 Range/Units 05:22 Sodium 132 L (137-145) mmol/L BUN 50 H (7-17) mg/dL Glucose 128 H (74-99) mg/dL Magnesium 2.4 H (1.6-2.3) mg/dL Assessment and Plan Assessment: 1. Symptomatic hyponatremia. Status post 3% saline. Status post 1 dose of Samsca few days ago. Hypervolemic. Sodium level 132 this morning. TSH normal. Urine osmolality 722. Urine sodium less than 20. Cortisol level not low. Maintained on IV Lasix. 2. Seizure. Possibly from hyponatremia. Dilantin stopped a week prior to admission due to rash. Now on Keppra. Neurology following. 3. Edema. Improving with diuresis. 4. Mental delay. 5. Hyperkalemia. Hemolyzed sample. Repeat potassium normal. Plan: Okay to switch to oral Lasix and patient is stable for discharge from nephrology standpoint. Maintain fluid restriction.
[2023-05-15 15:47] VITALS: BP 146/70; PULSE 104; TEMP 97.8
[2023-05-15] MEDS ORDERED: FUROSEMIDE 40 MG TAB PO SCH (16:00)
== END 2023-05-15 16:58 | DRG 641 ==
LOC: EC 16:20 → SUPCPDRO 16:20 → 2SICU 19:54 → 4SSUR 05-09 18:38
PROVIDERS: ADMIT Internal Medicine; ATTEND Internal Medicine
PROC: 05HF33Z Insertion of Infusion Device into Left Cephalic Vein, Percutaneous Approach (ICD-10-PCS; principal; 2023-05-08 07:30)
DX: E87.1 Hypo-osmolality and hyponatremia (principal); Z68.42 Body mass index [BMI] 45.0-49.9, adult; E03.9 Hypothyroidism, unspecified; E66.01 Morbid (severe) obesity due to excess calories; G40.909 Epilepsy, unspecified, not intractable, without status epilepticus; L30.9 Dermatitis, unspecified; T36.8X5A Adverse effect of other systemic antibiotics, initial encounter; E86.1 Hypovolemia; E87.5 Hyperkalemia; E87.70 Fluid overload, unspecified; R59.0 Localized enlarged lymph nodes; R62.50 Unspecified lack of expected normal physiological development in childhood; Z79.890 Hormone replacement therapy; Z79.899 Other long term (current) drug therapy; Z86.018 Personal history of other benign neoplasm; Z71.3 Dietary counseling and surveillance; Z88.0 Allergy status to penicillin
CPT/HCPCS: 36410; 36415; 70450; 71045; 74177; 76937; 80048; 80053; 80186; 81001; 82533; 83735; 83880; 83930; 83935; 84100; 84295; 84300; 84443; 84484; 85025; 85610; 85730; 93005; 93306; 94760; 95816; 96361; 96374; 96375; 99291

== ENCOUNTER 2023-06-09 11:36 | Inpatient (IN) | payer MEDICARE, OTHER ==
--- NOTE | 2023-06-09 12:18 | ED ---
General Adult HPI <Rhea Vanegas - Last Filed: 06/09/23 14:18> - General Source: patient, EMS, RN notes reviewed Mode of arrival: EMS Limitations: altered mental status, physical limitation <Jorge L Joseph - Last Filed: 06/09/23 15:22> - General Chief complaint: Recheck/Abnormal Lab/Rx Stated complaint: Aspiration Time Seen by Provider: 06/09/23 11:40 - History of Present Illness Initial comments: Patient is a pleasant 78-year-old female presenting to the emergency department with concern for possible aspiration. Patient comes from snf. Patient is a very poor historian. Patient states he feels fine and has no complaints. Patient reportedly has been not swallowing and they're concerned that patient may be aspirating. (Jorge L Joseph) - Related Data Home Medications Medication Instructions Recorded Confirmed Levothyroxine Sodium 125 mcg PO DAILY 05/20/21 05/06/23 Primidone 250 mg PO HS 05/20/21 05/06/23 Potassium Chloride 10 meq PO DAILY 05/23/21 05/06/23 Betamethasone Dipropionate 1 applic TOPICAL BID 05/06/23 05/06/23 [Betamethasone Dipropionate 0.05%] Cinacalcet [Sensipar] 30 mg PO DAILY 05/06/23 05/06/23 Hydrocortisone Oint 1 applic TOPICAL BID 05/06/23 05/06/23 [Hydrocortisone 2.5% Oint] Montelukast [Singulair] 10 mg PO DAILY 05/06/23 05/06/23 Previous Rx's Medication Instructions Recorded Calamine/Zinc Oxide Lotion 1 applic TOPICAL TID PRN each 05/15/23 [Calamine Lotion] Furosemide [Lasix] 40 mg PO BID@0900,1600 tab 05/15/23 Pantoprazole [Protonix] 40 mg PO DAILY #30 tab 05/15/23 levETIRAcetam [Keppra] 1,000 mg PO Q12HR tab 05/15/23 Allergies Allergy/AdvReac Type Severity Reaction Status Date / Time Penicillins Allergy Rash/Hives Verified 05/06/23 20:18 Review of Systems ROS Other: All systems not noted in ROS Statement are negative. <Rhea Vanegas - Last Filed: 06/09/23 14:18> ROS Other: All systems not noted in ROS Statement are negative. Respiratory: Reports: as per HPI <Jorge L Joseph - Last Filed: 06/09/23 15:22> ROS Statement: Those systems with pertinent positive or pertinent negative responses have been documented in the HPI. Past Medical History Past Medical History: Seizure Disorder, Thyroid Disorder History of Any Multi-Drug Resistant Organisms: None Reported Past Surgical History: No Surgical Hx Reported Additional Past Surgical History / Comment(s): cataract surgery, non-cancerous stomach growth removal Smoking Status: Never smoker <Jorge L Joseph - Last Filed: 06/09/23 15:22> General Exam Limitations: altered mental status, physical limitation General appearance: alert, in no apparent distress Head exam: Present: atraumatic Eye exam: Present: normal appearance ENT exam: Present: other (Erythema of the mouth or throat with white coating of tongue) Neck exam: Present: normal inspection Respiratory exam: Present: rales Cardiovascular Exam: Present: regular rate, normal rhythm GI/Abdominal exam: Present: soft. Absent: tenderness Extremities exam: Present: normal inspection Neurological exam: Present: alert Psychiatric exam: Present: flat affect Skin exam: Present: other (Diffuse patchy erythematous type rash) <Jorge L Joseph - Last Filed: 06/09/23 15:22> Course Vital Signs 06/09/23 06/09/23 11:59 14:34 Pulse Rate 71 67 Respiratory 22 18 Rate Blood Pressure 107/61 102/50 O2 Sat by Pulse 95 97 Oximetry EKG Findings - EKG Results: EKG: interpreted by ERMD, sinus rhythm (First AV block VA 201.), normal QRS, normal ST/T <Jorge L Joseph - Last Filed: 06/09/23 15:22> Procedures - EJ/Peripheral Line No standard instances Consent Obtained: verbal consent Indications: nurses unable to establish peripheral IV Skin Cleansed in Sterile Fashion: Yes Size: 22 (right breast) Dressing Placed: Tegaderm Patient Tolerated Procedure: well, no complications <Rhea Vanegas - Last Filed: 06/09/23 14:18> - EJ/Peripheral Line No standard instances Additional Comments: Pt tolerated well (Rhea Vanegas) Medical Decision Making - Lab Data Result diagrams: 06/09/23 13:33 <Rhea Vanegas - Last Filed: 06/09/23 14:18> - Lab Data Result diagrams: 06/09/23 13:33 06/09/23 13:33 <Jorge L Joseph - Last Filed: 06/09/23 15:22> - Medical Decision Making Was pt. sent in by a medical professional or institution (RAGHAV Napoles, RESIDENCY DIRECTOR, urgent care, hospital, or snf...) When possible be specific @ -Patient was sent from nursing facility Did you speak to anyone other than the patient for history (EMS, parent, family, police, friend...)? What history was obtained from this source @ -No Did you review nursing and triage notes (agree or disagree)? Why? @ -I reviewed and agree with nursing and triage notes Were old charts reviewed (outside hosp., previous admission, EMS record, old EKG, old radiological studies, urgent care reports/EKG's, snf records)? Report findings @ -Transfer report from transfer facility reviewed Differential Diagnosis (chest pain, altered mental status, abdominal pain women, abdominal pain men, vaginal bleeding, weakness, fever, dyspnea, syncope, headache, dizziness, GI bleed, back pain, seizure, CVA, palpatations, mental health, musculoskeletal)? @ -Differential Dyspnea: Coronary syndrome, arrhythmia, tamponade, asthma, COPD, pulmonary embolism, pneumonia, pneumothorax, pulmonary effusion, anaphylaxis, diabetic ketoacidosis, flailed chest, pulmonary contusion, diaphragmatic rupture, anemia, n euromuscular, this is not meant to be an all-inclusive list. EKG interpreted by me (3pts min.). @ -As above X-rays interpreted by me (1pt min.). @ -2 view chest x-ray is rotated, cannot seclude left lower lobe opacity CT interpreted by me (1pt min.). @ -None done U/S interpreted by me (1pt. min.). @ -None done What testing was considered but not performed or refused? (CT, X-rays, U/S, labs)? Why? @ -None What meds were considered but not given or refused? Why? @ -None Did you discuss the management of the patient with other professionals (anais carreon i.e. RAGHAV Napoles, RESIDENCY DIRECTOR, lab, RT, psych nurse, social worker school, civil engineering professional, teacher, jail officer, supervisor case loading)? Give summary @ -[facility] for admission covering for Dr. Benítez Was smoking cessation discussed for >3mins.? @ -No Was critical care preformed (if so, how long)? @ -No Were there social determinants of health that impacted care today? How? (Homelessness, low income, unemployed, alcoholism, drug addiction, transportation, low edu. Level, literacy, decrease access to med. care, half-way, rehab)? @ -No Was there de-escalation of care discussed even if they declined (Discuss DNR or withdrawal of care, Hospice)? DNR status @ -No What co-morbidities impacted this encounter? (DM, HTN, Smoking, COPD, CAD, Cancer, CVA, ARF, Chemo, Hep., AIDS, mental health diagnosis, sleep apnea, morbid obesity)? @ -None Was patient admitted / discharged? Hospital course, mention meds given and route, prescriptions, significant lab abnormalities, going to OR and other pertinent info. @ -Patient reevaluated. Patient has 2) present who are updated. They state there is no family in the area and patient does have guardian. Patient will be admitted. Patient has a TIA and nephrology will consult. Cannot rule out aspiration and IV antibiotics will be started. Patient has poor prognosis. Admission orders written. Undiagnosed new problem with uncertain prognosis? @ -No Drug Therapy requiring intensive monitoring for toxicity (Heparin, Nitro, Insulin, Cardizem)? @ -No Were any procedures done? @ -No Diagnosis/symptom? @ -kat, aspiration pneumonia Acute, or Chronic, or Acute on Chronic? @ -Acute, acute Uncomplicated (without systemic symptoms) or Complicated (systemic symptoms)? @ -default Side effects of treatment? @ -No Exacerbation, Progression, or Severe Exacerbation? @ -No Poses a threat to life or bodily function? How? (Chest pain, USA, MS, pneumonia, PE, COPD, DKA, ARF, appy, cholecystitis, CVA, Diverticulitis, Homicidal, S uicidal, threat to staff... and all critical care pts) @ -No (Jorge L Joseph) - Lab Data Lab Results 06/09/23 06/09/23 06/09/23 Range/Units 13:33 13:33 13:33 WBC 11.0 H (3.8-10.6) k/uL RBC 3.64 L (3.80-5.40) m/uL Hgb 11.1 L (11.4-16.0) gm/dL Hct 35.3 (34.0-46.0) % MCV 97.0 (80.0-100.0) fL MCH 30.4 (25.0-35.0) pg MCHC 31.3 (31.0-37.0) g/dL RDW 17.3 H (11.5-15.5) % Plt Count 66 L D (150-450) k/uL MPV 9.3 Neutrophils % 92 % Lymphocytes % 3 % Monocytes % 4 % Eosinophils % 1 % Basophils % 0 % Neutrophils # 10.1 H (1.3-7.7) k/uL Lymphocytes # 0.3 L (1.0-4.8) k/uL Monocytes # 0.4 (0-1.0) k/uL Eosinophils # 0.1 (0-0.7) k/uL Basophils # 0.0 (0-0.2) k/uL Manual Slide Review Performed Hypochromasia Moderate Poikilocytosis Slight Anisocytosis Slight Macrocytosis Slight PT 10.3 (9.0-12.0) sec INR 1.0 (<1.2) APTT 32.4 H (22.0-30.0) sec Sodium 132 L (137-145) mmol/L Potassium 5.8 H (3.5-5.1) mmol/L Chloride 101 (98-107) mmol/L Carbon Dioxide 21 L (22-30) mmol/L Anion Gap 10 mmol/L BUN 94 H (7-17) mg/dL Creatinine 2.51 H (0.52-1.04) mg/dL Est GFR (CKD-EPI)AfAm 21 (>60 ml/min/1.73 sqM) Est GFR (CKD-EPI)NonAf 18 (>60 ml/min/1.73 sqM) Glucose 93 (74-99) mg/dL Plasma Lactic Acid Giovanni (0.7-2.0) mmol/L Calcium 8.6 (8.4-10.2) mg/dL Total Bilirubin 0.6 (0.2-1.3) mg/dL AST 90 H (14-36) U/L ALT 39 H (4-34) U/L Alkaline Phosphatase 96 (38-126) U/L Troponin I (0.000-0.034) ng/mL NT-Pro-B Natriuret Pep 231 pg/mL Total Protein 5.4 L (6.3-8.2) g/dL Albumin 2.3 L (3.5-5.0) g/dL Coronavirus (PCR) (Not Detectd) 06/09/23 06/09/23 06/09/23 Range/Units 13:33 13:33 14:10 WBC (3.8-10.6) k/uL RBC (3.80-5.40) m/uL Hgb (11.4-16.0) gm/dL Hct (34.0-46.0) % MCV (80.0-100.0) fL MCH (25.0-35.0) pg MCHC (31.0-37.0) g/dL RDW (11.5-15.5) % Plt Count (150-450) k/uL MPV Neutrophils % % Lymphocytes % % Monocytes % % Eosinophils % % Basophils % % Neutrophils # (1.3-7.7) k/uL Lymphocytes # (1.0-4.8) k/uL Monocytes # (0-1.0) k/uL Eosinophils # (0-0.7) k/uL Basophils # (0-0.2) k/uL Manual Slide Review Hypochromasia Poikilocytosis Anisocytosis Macrocytosis PT (9.0-12.0) sec INR (<1.2) APTT (22.0-30.0) sec Sodium (137-145) mmol/L Potassium (3.5-5.1) mmol/L Chloride (98-107) mmol/L Carbon Dioxide (22-30) mmol/L Anion Gap mmol/L BUN (7-17) mg/dL Creatinine (0.52-1.04) mg/dL Est GFR (CKD-EPI)AfAm (>60 ml/min/1.73 sqM) Est GFR (CKD-EPI)NonAf (>60 ml/min/1.73 sqM) Glucose (74-99) mg/dL Plasma Lactic Acid Giovanni 1.4 (0.7-2.0) mmol/L Calcium (8.4-10.2) mg/dL Total Bilirubin (0.2-1.3) mg/dL AST (14-36) U/L ALT (4-34) U/L Alkaline Phosphatase (38-126) U/L Troponin I <0.012 (0.000-0.034) ng/mL NT-Pro-B Natriuret Pep pg/mL Total Protein (6.3-8.2) g/dL Albumin (3.5-5.0) g/dL Coronavirus (PCR) Not Detected (Not Detectd) Disposition <Rhea Vanegas - Last Filed: 06/09/23 14:18> Is patient prescribed a controlled substance at d/c from ED?: No Time of Disposition: 15:22 <Jorge L Joseph - Last Filed: 06/09/23 15:22> Clinical Impression: KAT (acute kidney injury), Aspiration pneumonia Disposition: ADMITTED IP TO THIS HOSP Condition: Poor Referrals: Myron Benítez MD [Primary Care Provider] - 1-2 days
[2023-06-09 13:53] LABS: Anisocytosis Slight; Basophils % (A) 0 %; Eosinophils # (A) 0.1 k/uL (0-0.7); Eosinophils % (A) 1 %; HCT 35.3 % (34.0-46.0); HGB 11.1 gm/dL (11.4-16.0); Hypochromasia Moderate; Lymphocytes # (A) 0.3 k/uL (1.0-4.8); Lymphocytes % (A) 3 %; MCH 30.4 pg (25.0-35.0); MCHC 31.3 g/dL (31.0-37.0); Macrocytosis Slight; Mean Platelet Volume 9.3; Monocytes # (A) 0.4 k/uL (0-1.0); Monocytes % (A) 4 %; Neutrophils # (A) 10.1 k/uL (1.3-7.7); Neutrophils % (A) 92 %; Poikilocytosis Slight; RBC 3.64 m/uL (3.80-5.40); RDW 17.3 % (11.5-15.5)
[2023-06-09 14:04] LABS: Partial Thromboplastin Time 32.4 sec (22.0-30.0); Prothrombin Time 10.3 sec (9.0-12.0)
[2023-06-09 14:11] LABS: ALT 39 U/L (4-34); AST 90 U/L (14-36); African American GFR (CKD) 21 (>60 ml/min/1.73 sqM); Albumin 2.3 g/dL (3.5-5.0); Alkaline Phosphatase 96 U/L (38-126); Anion Gap 10 mmol/L; Blood Urea Nitrogen 94 mg/dL (7-17); Calcium 8.6 mg/dL (8.4-10.2); Carbon Dioxide 21 mmol/L (22-30); Chloride 101 mmol/L (98-107); Glucose 93 mg/dL (74-99); Non-African American GFR(CKD) 18 (>60 ml/min/1.73 sqM); Potassium 5.8 mmol/L (3.5-5.1); Sodium 132 mmol/L (137-145); Total Bilirubin 0.6 mg/dL (0.2-1.3); Total Protein 5.4 g/dL (6.3-8.2)
[2023-06-09 14:19] LABS: NT-Pro-B-Type Natriuretic Pept 231 pg/mL
[2023-06-09 15:06] LABS: Platelet Count 66 k/uL (150-450)
[2023-06-09] MEDS ORDERED: LEVOFLOXACIN 750MG-D5W PMX 750 MG in DEXTROSE/WATER 1 150ML.BAG IVPB STA (15:17)
[2023-06-09] MEDS ORDERED: PNEUMONIA PROTOCOL UTILIZED 1 EACH MISC PO PRN (15:17)
[2023-06-09] MEDS ORDERED: LEVOFLOXACIN 750MG-D5W PMX 750 MG in DEXTROSE/WATER 1 150ML.BAG IVPB SCH (15:30)
--- NOTE | 2023-06-09 16:17 | XR ---
EXAMINATION TYPE: XR chest 2V DATE OF EXAM: 06/09/2023 COMPARISON: 05/07/2023 INDICATION: Difficulty Breathing TECHNIQUE: Frontal and lateral views of the chest are obtained. FINDINGS: The heart size is upper limits of normal for size. Degree of inspiration is somewhat limited. The pulmonary vasculature is normal. The lungs are clear. IMPRESSION: 1. No acute pulmonary process.
[2023-06-09] MEDS: SODIUM CHLORIDE 0.9% 1,000 ML IV SCH (16:22)
[2023-06-09] MEDS ORDERED: INSULIN REGULAR 100 UNIT/ML VIAL (IV) IV ONE (19:19)
[2023-06-09] MEDS ORDERED: CALCIUM GLUCONATE IN NACL 1 GM in SALINE 1 100ML.BAG IVPB ONE (19:19)
[2023-06-09] MEDS ORDERED: SODIUM ZIRCONIUM CYCLOSILICATE 10 GM PACKET PO ONE (19:19)
[2023-06-09] MEDS ORDERED: DEXTROSE 50% SYRINGE 50 ML IVP ONE (19:19)
[2023-06-09] MEDS ORDERED: ACETAMINOPHEN TAB 325 MG TAB PO PRN (19:20)
[2023-06-09] MEDS ORDERED: NALOXONE 0.4 MG/ML 1 ML VIAL IV PRN (19:24)
[2023-06-09 20:14] LABS: Glucose,Whole Blood 91 mg/dL (70-110)
[2023-06-09] MEDS ORDERED: MORPHINE SULFATE 2 MG/ML SYRINGE IVP PRN (20:52)
[2023-06-09 20:59] LABS: Glucose,Whole Blood 212 mg/dL (70-110)
[2023-06-09] MEDS ORDERED: levETIRAcetam 500 MG TAB PO SCH (21:00)
[2023-06-09] MEDS: levETIRAcetam IV 500 MG/5 ML VIAL IVP SCH (21:38)
[2023-06-09] MEDS: MORPHINE SULFATE 2 MG/ML SYRINGE IVP PRN (21:39)
[2023-06-09] MEDS: PRIMIDONE 250 MG TAB PO SCH (21:46)
[2023-06-10] MEDS: SODIUM CHLORIDE 0.9% 1,000 ML IV SCH ×2 (04:12→09:05)
[2023-06-10] MEDS: MORPHINE SULFATE 2 MG/ML SYRINGE IVP PRN (04:12)
[2023-06-10] MEDS: PANTOPRAZOLE 40 MG TABLET PO SCH (05:26)
[2023-06-10] MEDS: LEVOTHYROXINE 125 MCG TAB PO SCH (05:26)
[2023-06-10] MEDS ORDERED: DEXTROSE 50% SYRINGE 50 ML IVP ONE ×2 (06:27→09:17)
[2023-06-10] MEDS ORDERED: SODIUM BICARB 8.4% 50 ML SYR (1 MEQ/ML) IV ONE (06:27)
[2023-06-10] MEDS ORDERED: INSULIN REGULAR 100 UNIT/ML VIAL (IV) IV ONE (06:45)
[2023-06-10 07:04] LABS: Glucose,Whole Blood 76 mg/dL (70-110)
[2023-06-10 08:51] LABS: Anisocytosis Slight; HCT 33.9 % (34.0-46.0); HGB 10.9 gm/dL (11.4-16.0); Hypochromasia Marked; MCH 31.3 pg (25.0-35.0); MCHC 32.2 g/dL (31.0-37.0); MCV 97.3 fL (80.0-100.0); Macrocytosis Slight; Mean Platelet Volume 11.3; Poikilocytosis Slight; RBC 3.48 m/uL (3.80-5.40); RDW 17.6 % (11.5-15.5); WBC 12.1 k/uL (3.8-10.6)
[2023-06-10 08:52] LABS: Platelet Count 48 k/uL (150-450)
[2023-06-10] MEDS: MONTELUKAST 10 MG TAB PO SCH (08:58)
[2023-06-10] MEDS: CINACALCET 30 MG TAB PO SCH (08:58)
[2023-06-10 09:17] LABS: Glucose,Whole Blood 47 mg/dL (70-110)
[2023-06-10 09:17] LABS: Glucose,Whole Blood 47 mg/dL (70-110)
[2023-06-10] MEDS ORDERED: DEXTROSE 50% SYRINGE 50 ML IVP STA (09:25)
[2023-06-10] MEDS: levETIRAcetam IV 500 MG/5 ML VIAL IVP SCH ×2 (09:27→20:43)
[2023-06-10 09:54] LABS: Glucose,Whole Blood 102 mg/dL (70-110)
--- NOTE | 2023-06-10 11:15 | XR ---
EXAMINATION TYPE: XR chest 1V portable DATE OF EXAM: 06/10/2023 COMPARISON: 06/09/2023 INDICATION: Pneumonia, cough TECHNIQUE: Single frontal view of the chest is obtained. FINDINGS: The heart size is normal. The pulmonary vasculature is normal. No suspicious focal consolidation is evident. Findings appear stable. IMPRESSION: 1. No acute pulmonary process. Follow-up as clinically indicated
--- NOTE | 2023-06-10 11:46 | P.HPIM ---
History of Present Illness H&P Date: 06/10/23 Chief Complaint: altered mentation * 78-year-old lady with past medical history significant for seizure disorder, chronic kidney disease, hyponatremia, hyperparathyroid, hypothyroidism presented to the emergency department with altered mentation. Patient had recent hospitalization last month with similar presentation and was noted to have breakthrough seizures was seen by Neurology. Patient sent in from facility due to concern for possible aspiration. She is a custodial resident and a poor historian history was obtained from chart review and medical record * Review of blood work at the time of presentation showed leukocytosis, WBC 11, hemoglobin 11 platelet count 66. Sodium 132 potassium 5.9 chloride 21 BUN 94 creatinine 2.51. * A chest x-ray obtained on admission was negative for acute intrathoracic process. * Patient was started on IV antibiotic and IV fluid and admitted on medical floor for further management * Upon evaluation patient was alert to person and does follow commands however does appear lethargic. Does not know her baseline. She does appear fluid overload REVIEW OF SYSTEMS: Patient complains of Generalized pain, review of system limited secondary to mentation PHYSICAL EXAMINATION: GENERAL: The patient is alert and oriented x1, ill appearance, lethargic however easily arousable, obese HEENT: Pupils are round and equally reacting to light. EOMI. N. Normocephalic CARDIOVASCULAR: S1 and S2 present. Lower extremity edema present PULMONARY: Chest is clear to auscultation, no wheezing or crackles. ABDOMEN: Soft, nontender, nondistended, normoactive bowel sounds. No palpable organomegaly. MUSCULOSKELETAL: No joint swelling or deformity. EXTREMITIES: No cyanosis, clubbing, or pedal edema. NEUROLOGICAL: Gross neurological examination did not reveal any focal deficits. SKIN: Right lower extremity erythema noted Past Medical History Past Medical History: Seizure Disorder, Thyroid Disorder History of Any Multi-Drug Resistant Organisms: None Reported Past Surgical History: No Surgical Hx Reported Additional Past Surgical History / Comment(s): cataract surgery, non-cancerous stomach growth removal Past Psychological History: No Psychological Hx Reported Smoking Status: Never smoker Medications and Allergies Home Medications Medication Instructions Recorded Confirmed Type Levothyroxine Sodium 125 mcg PO DAILY@0600 05/20/21 06/09/23 History Primidone 250 mg PO HS 05/20/21 06/09/23 History Potassium Chloride 10 meq PO DAILY@79905/23/21 06/09/23 History Cinacalcet [Sensipar] 30 mg PO DAILY@0800 05/06/23 06/09/23 History Montelukast [Singulair] 10 mg PO DAILY@0805/06/23 06/09/23 History Calamine/Zinc Oxide Lotion 1 applic TOPICAL TID PRN each 05/15/23 06/09/23 Rx [Calamine Lotion] Furosemide [Lasix] 40 mg PO BID@0900,1600 tab 05/15/23 06/09/23 Rx Acetaminophen Tab [Tylenol] 650 mg PO Q4H PRN 06/09/23 06/09/23 History Betamethasone Dipropionate 1 applic TOPICAL BID@0800,209906/09/23 06/09/23 History [Diprolene AF 0.05% Cream] Hydrocortisone Lotion [Hytone 2.5% 1 applic TOPICAL BID@0800,209906/09/23 06/09/23 History Lotion] Magnesium Hydroxide [Milk of 7,200 mg PO Q48H PRN 06/09/23 06/09/23 History Magnesia Concentrate] Na Phos,M-B/Na Phos,Di-Ba [Fleet 133 ml RECTAL DAILY PRN 06/09/23 06/09/23 History Adult] Pantoprazole [Protonix] 40 mg PO DAILY@59906/09/23 06/09/23 History bisacodyL [Dulcolax] 10 mg RECTAL DAILY PRN 06/09/23 06/09/23 History levETIRAcetam [Keppra] 1,000 mg PO Q12HR@0800,209906/09/23 06/09/23 History metOLazone [Zaroxolyn] 2.5 mg PO DAILY@0606/09/23 06/09/23 History Allergies Allergy/AdvReac Type Severity Reaction Status Date / Time Penicillins Allergy Rash/Hives Verified 06/09/23 15:51 Physical Exam Vitals: Vital Signs Temp Pulse Pulse Resp BP BP Pulse Ox 06/10/23 00:50 97.7 F 67 19 137/77 97 06/09/23 20:26 95 06/09/23 19:15 98.0 F 70 19 118/66 95 06/09/23 17:01 74 20 96/58 94 L 06/09/23 14:34 67 18 102/50 97 06/09/23 11:59 71 22 107/61 95 Intake and Output 06/09/23 06/09/23 06/10/23 14:59 22:59 06:59 Other: Voiding Method External Catheter # Voids 1 Weight 117.934 kg 117.934 kg Results CBC & Chem 7: 06/10/23 07:06 06/09/23 22:49 Labs: Abnormal Lab Results - Last 24 Hours (Table) 06/09/23 06/09/23 06/09/23 Range/Units 13:33 13:33 13:33 WBC 11.0 H (3.8-10.6) k/uL RBC 3.64 L (3.80-5.40) m/uL Hgb 11.1 L (11.4-16.0) gm/dL RDW 17.3 H (11.5-15.5) % Plt Count 66 L D (150-450) k/uL Neutrophils # 10.1 H (1.3-7.7) k/uL Lymphocytes # 0.3 L (1.0-4.8) k/uL APTT 32.4 H (22.0-30.0) sec Sodium 132 L (137-145) mmol/L Potassium 5.8 H (3.5-5.1) mmol/L Carbon Dioxide 21 L (22-30) mmol/L BUN 94 H (7-17) mg/dL Creatinine 2.51 H (0.52-1.04) mg/dL POC Glucose (mg/dL) (70-110) mg/dL AST 90 H (14-36) U/L ALT 39 H (4-34) U/L Total Protein 5.4 L (6.3-8.2) g/dL Albumin 2.3 L (3.5-5.0) g/dL 06/09/23 06/09/23 Range/Units 20:58 22:49 WBC (3.8-10.6) k/uL RBC (3.80-5.40) m/uL Hgb (11.4-16.0) gm/dL RDW (11.5-15.5) % Plt Count (150-450) k/uL Neutrophils # (1.3-7.7) k/uL Lymphocytes # (1.0-4.8) k/uL APTT (22.0-30.0) sec Sodium (137-145) mmol/L Potassium 5.9 H (3.5-5.1) mmol/L Carbon Dioxide (22-30) mmol/L BUN (7-17) mg/dL Creatinine (0.52-1.04) mg/dL POC Glucose (mg/dL) 212 H (70-110) mg/dL AST (14-36) U/L ALT (4-34) U/L Total Protein (6.3-8.2) g/dL Albumin (3.5-5.0) g/dL Assessment and Plan Assessment: Assessment and plan * aspiration pneumonia * acute renal failure with hyperkalemia with chronic kidney disease * chronic hyponatremia * Right lotion with the cellulitis * acute on chronic encephalopathy metabolic in origin * history of seizure disorder * failure to thrive * in regards to aspiration pneumonia patient started on IV antibiotics, maintain aspiration precautions, speech therapy consulted patient NPO till place speech evaluation * in regards to renal failure and hyperkalemia patient given insulin, dextrose, Lokelma full follow-up on potassium levels nephrology consulted * in regards to history of seizure disorder, and worsening mentation, Neurology consulted * In regards to underlying pneumonia and cellulitis, requested infectious disease input * in regards to failure to thrive patient will need physical therapy, occupational therapy evaluation * in regards to hyponatremia continue to monitor serum sodium levels post hydration. Continue to hold Lasix and potassium supplementation secondary to worsening renal function and hyperkalemia * CODE STATUS is full code
[2023-06-10] MEDS: DEXTROSE 5%-0.9% NACL 1,000 ML IV SCH (12:29)
[2023-06-10 13:36] LABS: African American GFR (CKD) 20 (>60 ml/min/1.73 sqM); Anion Gap 9 mmol/L; Blood Urea Nitrogen 99 mg/dL (7-17); Calcium 8.4 mg/dL (8.4-10.2); Carbon Dioxide 21 mmol/L (22-30); Chloride 104 mmol/L (98-107); Glucose 72 mg/dL (74-99); Non-African American GFR(CKD) 18 (>60 ml/min/1.73 sqM); Potassium 5.5 mmol/L (3.5-5.1); Sodium 134 mmol/L (137-145)
[2023-06-10 13:52] LABS: C Reactive Protein 17.5 mg/dL (<1.0)
[2023-06-10] MEDS ORDERED: Lacosamide IV (ages 17+ yrs) 200 MG/20 ML ML IVP ONE (15:15)
[2023-06-10] MEDS ORDERED: CEFEPIME 2 GM in SODIUM CHLORIDE 0.9% 100 ML IVPB STA (15:18)
[2023-06-10] MEDS ORDERED: DAPTOmycin 500 MG in SODIUM CHLORIDE 0.9% 50 ML IVPB SCH (16:00)
[2023-06-10 16:50] LABS: Glucose,Whole Blood 98 mg/dL (70-110)
--- NOTE | 2023-06-10 17:31 | P.CNNES ---
History of Present Illness Consult date: 06/10/23 Reason for Consult: Hx seizure disorder, acute MS changes History of Present Illness: The pt is a 78 y/o female who is seen in neurologic consultation on 2022, in collaboration with Li Sandhu, via teleneurolgy. The pt has a past medical history significant for seizure disorder, chronic kidney disease, hyponatremia, hyperparathyroid, hypothyroidism presented to the emergency department with altered mentation. Patient had recent hospitalization last month with similar presentation and was noted to have breakthrough seizu res. She was seen by Neurology. At that time, the pt was started on Keppra 100mg po bid. Patient sent in from her [place] [facility] facility due to concern for possible aspiration. She is a poor historian history was obtained from chart review and medical record. Family members are present at the bedside at the time of the eval. * Review of Systems unable to obtain secondary to mental status of pt Past Medical History Past Medical History: Seizure Disorder, Thyroid Disorder History of Any Multi-Drug Resistant Organisms: None Reported Past Surgical History: No Surgical Hx Reported Additional Past Surgical History / Comment(s): cataract surgery, non-cancerous s tomach growth removal Past Psychological History: No Psychological Hx Reported Smoking Status: Never smoker Medications and Allergies Home Medications Medication Instructions Recorded Confirmed Type Levothyroxine Sodium 125 mcg PO DAILY@0600 05/20/21 06/09/23 History Primidone 250 mg PO HS 05/20/21 06/09/23 History Potassium Chloride 10 meq PO DAILY@79905/23/21 06/09/23 History Cinacalcet [Sensipar] 30 mg PO DAILY@79905/06/23 06/09/23 History Montelukast [Singulair] 10 mg PO DAILY@79905/06/23 06/09/23 History Calamine/Zinc Oxide Lotion 1 applic TOPICAL TID PRN each 05/15/23 06/09/23 Rx [Calamine Lotion] Furosemide [Lasix] 40 mg PO BID@0900,1600 tab 05/15/23 06/09/23 Rx Acetaminophen Tab [Tylenol] 650 mg PO Q4H PRN 06/09/23 06/09/23 History Betamethasone Dipropionate 1 applic TOPICAL BID@0800,2100 06/09/23 06/09/23 History [Diprolene AF 0.05% Cream] Hydrocortisone Lotion [Hytone 2.5% 1 applic TOPICAL BID@0800,209906/09/23 06/09/23 History Lotion] Magnesium Hydroxide [Milk of 7,200 mg PO Q48H PRN 06/09/23 06/09/23 History Magnesia Concentrate] Na Phos,M-B/Na Phos,Di-Ba [Fleet 133 ml RECTAL DAILY PRN 06/09/23 06/09/23 History Adult] Pantoprazole [Protonix] 40 mg PO DAILY@0600 06/09/23 06/09/23 History bisacodyL [Dulcolax] 10 mg RECTAL DAILY PRN 06/09/23 06/09/23 History levETIRAcetam [Keppra] 1,000 mg PO Q12HR@0800,209906/09/23 06/09/23 History metOLazone [Zaroxolyn] 2.5 mg PO DAILY@59906/09/23 06/09/23 History Allergies Allergy/AdvReac Type Severity Reaction Status Date / Time Penicillins Allergy Rash/Hives Verified 06/09/23 15:51 Physical Examination - Vital Signs Vital Signs: Vital Signs Temp Pulse Pulse Pulse Resp BP BP 06/10/23 08:00 89 18 95/55 06/10/23 00:50 97.7 F 67 19 137/77 06/09/23 20:26 06/09/23 19:15 98.0 F 70 19 118/66 06/09/23 17:01 74 20 96/58 06/09/23 14:34 67 18 102/50 06/09/23 11:59 71 22 107/61 Pulse Ox 06/10/23 08:00 97 06/10/23 00:50 97 06/09/23 20:26 95 06/09/23 19:15 95 06/09/23 17:01 94 L 06/09/23 14:34 97 06/09/23 11:59 95 Intake and Output 06/09/23 06/10/23 06/10/23 22:59 06:59 14:59 Other: Voiding Method External Catheter External Catheter # Voids 1 1 # Bowel Movements 1 Weight 117.934 kg Vitals: HR 78-95/52-O2 sat 95% General: The pt is reclining in the bed. She is obese. She is in mild distress. HEENT: Atraumatic, normocephalic. There is no scleral icterus. Fundus not visualized. Mucous membranes moist Neck: Supple, without carotid bruits Heart: Difficult to auscultate secondary to lung sounds Lungs: Wheezing throughout Extremities: Erythema, blisters, rash and edema of all extremities Neurological examination Mental status: The pt is sleepy, but arousable. She is able to state her first and last name, and location. Her speech is hypophonic, raspy. Cranial Nerves: Pupils are equal at 2mm and reactive. There is a right gaze preference. Extraocular muscles are intact. There is no facial asymmetry. Hearing is grossly intact. Tongue protrudes midline, without bite. Motor: Bilateral surgical supplies sterilizer strength 4/5. The pt is able to wiggle toes of right foot, not left. Abnormal shaking movements of right leg, head and torso Sensation: The pt withdraws form noxious stim. Coordination: Unable to be assessed. Deep Tendon reflexes: Not assessed at this time Gait: Not assessed Results - Laboratory Findings CBC and BMP: 06/10/23 07:06 06/10/23 12:54 Abnormal Lab Findings: Abnormal Labs 06/09/23 06/09/23 06/09/23 13:33 13:33 13:33 WBC 11.0 H RBC 3.64 L Hgb 11.1 L Hct RDW 17.3 H Plt Count 66 L D Neutrophils # 10.1 H Lymphocytes # 0.3 L APTT 32.4 H Sodium 132 L Potassium 5.8 H Carbon Dioxide 21 L BUN 94 H Creatinine 2.51 H POC Glucose (mg/dL) AST 90 H ALT 39 H Total Protein 5.4 L Albumin 2.3 L 06/09/23 06/09/23 06/10/23 20:58 22:49 07:06 WBC 12.1 H RBC 3.48 L Hgb 10.9 L Hct 33.9 L RDW 17.6 H Plt Count 48 L Neutrophils # Lymphocytes # APTT Sodium Potassium 5.9 H Carbon Dioxide BUN Creatinine POC Glucose (mg/dL) 212 H AST ALT Total Protein Albumin 06/10/23 06/10/23 09:14 09:15 WBC RBC Hgb Hct RDW Plt Count Neutrophils # Lymphocytes # APTT Sodium Potassium Carbon Dioxide BUN Creatinine POC Glucose (mg/dL) 47 L 47 L AST ALT Total Protein Albumin Assessment and Plan Assessment: 1. Break through seizure in pt with history of seizure disorder and current infection/sepsis 2. Plan: 1. Vimpat loading dose of 200mg IVPB has been ordered 2. Vimpat maintenance 100mg IV bid 3. Stat keppra level ordered 4. Seizure precautions 5. Ativan for break thru seizure 6. EEG Thank you for allowing us to participate in the care of this pt. Dr. Shade Richards will assume neurologic coverage of this pt as of 2022 Time with Patient: Greater than 30 (45 minutes were spent caring for this pt today, including obatining a history, examining the pt, reviewing imaging, labs, chart documentation, placing orders and creating this note)
[2023-06-10] MEDS: Lacosamide IV (ages 17+ yrs) 200 MG/20 ML ML IVP SCH (20:43)
[2023-06-10 22:08] LABS: Glucose,Whole Blood 103 mg/dL (70-110)
--- NOTE | 2023-06-10 23:46 | P.CONS ---
History of Present Illness - Reason for Consult Consult date: 06/10/23 - History of Present Illness Patient is a 78-year-old female with a past medical history significant for seizure disorder hypothyroidism residential resident patient has been sent to the ER yesterday afternoon with concern for possible aspiration from the residential patient did have a chronic diabetes bilateral temporal extremities patient with right lower leg patient currently denies having any headache or URI symptoms no chest pain shortness of [place] occasional cough no nausea vomiting no abdominal pain or diarrhea did have a more swelling redness right lower extremity denies any history of any trauma or any drainage on presentation to the hospital the patient was afebrile and no fever has been r ecorded subsequently patient did have a white count of 12.1 with a left shift creatinine is 2.57 potassium is 5.5 levels is mildly elevated CRP 17.5 patient did have a chest x-ray x2 that has been negative for any acute infiltrate blood cultures are growing Acinetobacter and MRSA patient has been on Levaquin because of her penicillin allergy infectious disease was consulted for further management of antibiotic therapy most information has been obtained from review of the chart talking to the friends at the bedside patient has some elevated good historian Past Medical History Past Medical History: Seizure Disorder, Thyroid Disorder History of Any Multi-Drug Resistant Organisms: None Reported Past Surgical History: No Surgical Hx Reported Additional Past Surgical History / Comment(s): cataract surgery, non-cancerous stomach growth removal Past Psychological History: No Psychological Hx Reported Smoking Status: Never smoker Medications and Allergies Home Medications Medication Instructions Recorded Confirmed Type Levothyroxine Sodium 125 mcg PO DAILY@0600 05/20/21 06/09/23 History Primidone 250 mg PO HS 05/20/21 06/09/23 History Potassium Chloride 10 meq PO DAILY@79905/23/21 06/09/23 History Cinacalcet [Sensipar] 30 mg PO DAILY@79905/06/23 06/09/23 History Montelukast [Singulair] 10 mg PO DAILY@79905/06/23 06/09/23 History Calamine/Zinc Oxide Lotion 1 applic TOPICAL TID PRN each 05/15/23 06/09/23 Rx [Calamine Lotion] Furosemide [Lasix] 40 mg PO BID@0900,1600 tab 05/15/23 06/09/23 Rx Acetaminophen Tab [Tylenol] 650 mg PO Q4H PRN 06/09/23 06/09/23 History Betamethasone Dipropionate 1 applic TOPICAL BID@0800,209906/09/23 06/09/23 H istory [Diprolene AF 0.05% Cream] Hydrocortisone Lotion [Hytone 2.5% 1 applic TOPICAL BID@0800,209906/09/23 06/09/23 History Lotion] Magnesium Hydroxide [Milk of 7,200 mg PO Q48H PRN 06/09/23 06/09/23 History Magnesia Concentrate] Na Phos,M-B/Na Phos,Di-Ba [Fleet 133 ml RECTAL DAILY PRN 06/09/23 06/09/23 History Adult] Pantoprazole [Protonix] 40 mg PO DAILY@0600 06/09/23 06/09/23 History bisacodyL [Dulcolax] 10 mg RECTAL DAILY PRN 06/09/23 06/09/23 History levETIRAcetam [Keppra] 1,000 mg PO Q12HR@0800,209906/09/23 06/09/23 History metOLazone [Zaroxolyn] 2.5 mg PO DAILY@0600 06/09/23 06/09/23 History Allergies Allergy/AdvReac Type Severity Reaction Status Date / Time Penicillins Allergy Rash/Hives Verified 06/09/23 15:51 Physical Exam Vitals: Vital Signs Temp Pulse Pulse Pulse Resp BP BP 06/10/23 08:00 89 18 95/55 06/10/23 00:50 97.7 F 67 19 137/77 06/09/23 20:26 06/09/23 19:15 98.0 F 70 19 118/66 06/09/23 17:01 74 20 96/58 06/09/23 14:34 67 18 102/50 Pulse Ox 06/10/23 08:00 97 06/10/23 00:50 97 06/09/23 20:26 95 06/09/23 19:15 95 06/09/23 17:01 94 L 06/09/23 14:34 97 Intake and Output 06/09/23 06/10/23 06/10/23 22:59 06:59 14:59 Other: Voiding Method External Catheter External Catheter # Voids 1 1 # Bowel Movements 1 Weight 117.934 kg Results CBC & Chem 7: 06/10/23 07:06 06/10/23 12:54 Labs: Abnormal Lab Results - Last 24 Hours (Table) 06/09/23 06/09/23 06/09/23 Range/Units 13:33 13:33 13:33 WBC 11.0 H (3.8-10.6) k/uL RBC 3.64 L (3.80-5.40) m/uL Hgb 11.1 L (11.4-16.0) gm/dL Hct (34.0-46.0) % RDW 17.3 H (11.5-15.5) % Plt Count 66 L D (150-450) k/uL Neutrophils # 10.1 H (1.3-7.7) k/uL Lymphocytes # 0.3 L (1.0-4.8) k/uL APTT 32.4 H (22.0-30.0) sec Sodium 132 L (137-145) mmol/L Potassium 5.8 H (3.5-5.1) mmol/L Carbon Dioxide 21 L (22-30) mmol/L BUN 94 H (7-17) mg/dL Creatinine 2.51 H (0.52-1.04) mg/dL POC Glucose (mg/dL) (70-110) mg/dL AST 90 H (14-36) U/L ALT 39 H (4-34) U/L Total Protein 5.4 L (6.3-8.2) g/dL Albumin 2.3 L (3.5-5.0) g/dL 06/09/23 06/09/23 06/10/23 Range/Units 20:58 22:49 07:06 WBC 12.1 H (3.8-10.6) k/uL RBC 3.48 L (3.80-5.40) m/uL Hgb 10.9 L (11.4-16.0) gm/dL Hct 33.9 L (34.0-46.0) % RDW 17.6 H (11.5-15.5) % Plt Count 48 L (150-450) k/uL Neutrophils # (1.3-7.7) k/uL Lymphocytes # (1.0-4.8) k/uL APTT (22.0-30.0) sec Sodium (137-145) mmol/L Potassium 5.9 H (3.5-5.1) mmol/L Carbon Dioxide (22-30) mmol/L BUN (7-17) mg/dL Creatinine (0.52-1.04) mg/dL POC Glucose (mg/dL) 212 H (70-110) mg/dL AST (14-36) U/L ALT (4-34) U/L Total Protein (6.3-8.2) g/dL Albumin (3.5-5.0) g/dL 06/10/23 06/10/23 Range/Units 09:14 09:15 WBC (3.8-10.6) k/uL RBC (3.80-5.40) m/uL Hgb (11.4-16.0) gm/dL Hct (34.0-46.0) % RDW (11.5-15.5) % Plt Count (150-450) k/uL Neutrophils # (1.3-7.7) k/uL Lymphocytes # (1.0-4.8) k/uL APTT (22.0-30.0) sec Sodium (137-145) mmol/L Potassium (3.5-5.1) mmol/L Carbon Dioxide (22-30) mmol/L BUN (7-17) mg/dL Creatinine (0.52-1.04) mg/dL POC Glucose (mg/dL) 47 L 47 L (70-110) mg/dL AST (14-36) U/L ALT (4-34) U/L Total Protein (6.3-8.2) g/dL Albumin (3.5-5.0) g/dL Microbiology - Last 24 Hours (Table) 06/09/23 13:20 Blood Culture Gram Stain - Preliminary Blood 06/09/23 13:05 Blood Culture Gram Stain - Preliminary Blood Assessment and Plan Plan: 1patient with the polymicrobial bacteremia source likely right lower extremity cellulitis as the patient had diffuse swelling redness and the patient is growing MRSA more likely skin soft tissue pathogen however the patient also growing Acinetobacter which is usually helpful urinary tract source and less likely pneumonia however the patient did have a chest x-ray x2 that has been negative for any pneumonia. 2patient with nebulization [place] limit the number of antibiotics safe to use. 3penicillin allergy regular blood work antibiotics safe to use. 4we will check UA and culture and also check CT abdominal pelvis with oral contrast only to rule out any intra-abdominal source. 5discontinue Levaquin. 6-start the patient on cefepime and daptomycin while awaiting further cultures to be finalized. 7blood cultures will be repeated document clearance of bacteremia. We will follow on clinical condition and cultures to further adjust medication if needed Thank you for this consultation we will follow the patient along with you Dictation was produced using [employer] dictation software. please excuse any grammatical, word or spelling errors. Time with Patient: Greater than 30
[2023-06-10] MEDS ORDERED: IOPAMIDOL CONTRAST (ORAL USE) VIAL PO PRN (23:47)
[2023-06-11] MEDS: PRIMIDONE 250 MG TAB PO SCH (01:27)
[2023-06-11] MEDS: LEVOTHYROXINE 125 MCG TAB PO SCH (05:24)
[2023-06-11] MEDS: PANTOPRAZOLE 40 MG TABLET PO SCH (05:24)
[2023-06-11] MEDS ORDERED: CEFEPIME 1 GM in SODIUM CHLORIDE 0.9% 50 ML IVPB SCH (06:00)
[2023-06-11 06:08] LABS: Glucose,Whole Blood 130 mg/dL (70-110)
[2023-06-11 07:31] LABS: African American GFR (CKD) 23 (>60 ml/min/1.73 sqM); Anion Gap 8 mmol/L; Blood Urea Nitrogen 104 mg/dL (7-17); C Reactive Protein 8.4 mg/dL (<1.0); Calcium 8.2 mg/dL (8.4-10.2); Carbon Dioxide 21 mmol/L (22-30); Chloride 106 mmol/L (98-107); Glucose 111 mg/dL (74-99); Non-African American GFR(CKD) 20 (>60 ml/min/1.73 sqM); Potassium 5.3 mmol/L (3.5-5.1); Sodium 135 mmol/L (137-145)
[2023-06-11 07:38] LABS: Anisocytosis Slight; HCT 33.4 % (34.0-46.0); HGB 10.4 gm/dL (11.4-16.0); Hypochromasia Moderate; MCH 30.4 pg (25.0-35.0); MCHC 31.3 g/dL (31.0-37.0); MCV 97.1 fL (80.0-100.0); Macrocytosis Slight; Mean Platelet Volume 10.1; Poikilocytosis Slight; RBC 3.43 m/uL (3.80-5.40); RDW 17.6 % (11.5-15.5); WBC 8.2 k/uL (3.8-10.6)
[2023-06-11 07:50] LABS: Platelet Count 54 k/uL (150-450)
[2023-06-11] MEDS: MONTELUKAST 10 MG TAB PO SCH (09:23)
[2023-06-11] MEDS: CINACALCET 30 MG TAB PO SCH (09:23)
[2023-06-11] MEDS: Lacosamide IV (ages 17+ yrs) 200 MG/20 ML ML IVP SCH (09:35)
[2023-06-11] MEDS: levETIRAcetam IV 500 MG/5 ML VIAL IVP SCH (09:47)
[2023-06-11] MEDS ORDERED: SCOPOLAMINE 1 MG/72 HR PATCH TRANSDERM SCH (10:00)
[2023-06-11 10:51] LABS: Appearance,Urine Clear (Clear); Bilirubin,Urine Negative (Negative); Blood,Urine Negative (Negative); Color,Urine Yellow; Glucose,Urine (UA) Negative (Negative); Ketones,Urine Negative (Negative); Leukocyte Esterase,Urine Negative (Negative); Nitrite,Urine Negative (Negative); Protein,Urine Trace (Negative); Specific Gravity,Urine 1.016 (1.001-1.035); Urobilinogen,Urine <2.0 mg/dL (<2.0)
--- NOTE | 2023-06-11 10:59 | US ---
EXAMINATION TYPE: US kidneys/renal and bladder DATE OF EXAM: 06/11/2023 COMPARISON: NONE CLINICAL INDICATION: Female, 78 years old with history of Chase; chase limited due to body habitus and arturo wel gas EXAM MEASUREMENTS: Right Kidney: 9.1 x 5.2 x 3.9 cm Left Kidney: 89 x 4.8 x 4.2 cm Incidental finding gallstone 1.7 cm seen. Right Kidney: No hydronephrosis or masses seen Left Kidney: No hydronephrosis or masses seen Bladder: not visualized Bilateral Jets seen: No There is no evidence for hydronephrosis at this point in time. No nephrolithiasis is seen. No naveen s are identified. The urinary bladder is anechoic. Bilateral ureteral jets are seen. IMPRESSION: Mild renal atrophic change. Incidental cholelithiasis.
[2023-06-11 11:15] LABS: Glucose,Whole Blood 110 mg/dL (70-110)
[2023-06-11] MEDS: DEXTROSE 5%-0.9% NACL 1,000 ML IV SCH (11:35)
[2023-06-11 12:37] VITALS: BMI 44.6
--- NOTE | 2023-06-11 13:33 | P.PN ---
Subjective Progress Note Date: 06/11/23 month with similar presentation and was noted to have breakthrough seizures was seen by Neurology. Patient sent in from facility due to concern for possible aspiration. She is a alf resident and a poor historian history was obtained from chart review and medical record * Review of blood work at the time of presentation showed leukocytosis, WBC 11, hemoglobin 11 platelet count 66. Sodium 132 potassium 5.9 chloride 21 BUN 94 creatinine 2.51. * A chest x-ray obtained on admission was negative for acute intrathoracic process. * Patient was started on IV antibiotic and IV fluid and admitted on medical floor for further management * Upon evaluation patient was alert to person and does follow commands however does appear lethargic. Does not know her baseline. She does appear fluid overload 06/11. Patient seen and examined. Patient is alert to self, opened eyes and follows commands. CODE STATUS changed to DO NOT RESUSCITATE limited after discussion with guardian. Hospice also consulted REVIEW OF SYSTEMS: Review of systems unobtainable the patient mental status PHYSICAL EXAMINATION: GENERAL: The patient is alert, not in any acute distress. Chronically ill- looking, poor oral hygiene HEENT: Pupils are round and equally reacting to light. EOMI. No scleral icterus. No conjunctival pallor. Normocephalic, atraumatic. No pharyngeal erythema. No thyromegaly. CARDIOVASCULAR: S1 and S2 present. No murmurs, rubs, or gallops. PULMONARY: Coarse breath sounds bilaterally, no wheeze ABDOMEN: Soft, nontender, nondistended, normoactive bowel sounds. No palpable o rganomegaly. MUSCULOSKELETAL: No joint swelling or deformity. EXTREMITIES: 1+ pitting edema lower extremities bilaterally NEUROLOGICAL: Gross neurological examination did not reveal any focal deficits. SKIN: No rashes. Assessment and plan aspiration pneumonia * acute renal failure with hyperkalemia with chronic kidney disease * chronic hyponatremia * Right lotion with the cellulitis * acute on chronic encephalopathy metabolic in origin * history of seizure disorder * failure to thrive Monitor vital signs Monitor CBC Monitor CMP Continue telemetry monitoring Follow-up on blood cultures Aspiration precautions Continue cefepime and daptomycin EEG ordered Continue Vimpat, continue Keppra Neurology following ID consulted Nephrology consulted Hospice consulted CODE STATUS changed to DO NOT RESUSCITATE limited Labs and medication were reviewed.. Continue same treatment. Continue with symptomatic treatment. Resume home medication. Monitor labs and vitals. DVT and GI prophylaxis. Further recommendations as per clinical course of the patient Dictation was produced using [employer] dictation software. please excuse any grammatical, word or spelling errors. Objective - Vital Signs Vital signs: Vital Signs Temp 97.3 F L 06/11/23 07:03 Pulse 88 06/11/23 07:03 Resp 23 06/11/23 07:03 BP 107/59 06/11/23 07:03 Pulse Ox 96 06/11/23 08:55 FiO2 Intake & Output 06/10/23 06/11/23 06/11/23 18:59 06:59 18:59 Intake Total 500 Output Total 400 Balance 100 Intake: Intake, IV Titration 500 Amount Cefepime 2 gm In Sodium 100 Chloride 0.9% 100 ml @ 200 mls/hr IVPB [facility] Rx#:[id number] DAPTOmycin 500 mg In 50 Sodium Chloride 0.9% 50 ml @ 100 mls/hr IVPB Q24H [facility] Rx#:[id number] Dextrose 5%-0.9% NaCl 1, 100 000 ml @ 20 mls/hr IV . Q24H [facility] Rx#:[id number] Sodium Chloride 0.9% 1, 250 000 ml @ 130 mls/hr IV . Q7H42M [facility] Rx#:[id number] Output: Urine 400 Other: Voiding Method External Catheter External Catheter # Voids 1 # Bowel Movements 0 - Labs CBC & Chem 7: 06/11/23 06:45 06/11/23 06:45 Labs: Abnormal Lab Results - Last 24 Hours (Table) 06/10/23 06/10/23 06/11/23 Range/Units 12:54 12:54 06:06 RBC (3.80-5.40) m/uL Hgb (11.4-16.0) gm/dL Hct (34.0-46.0) % RDW (11.5-15.5) % Plt Count (150-450) k/uL Sodium 134 L (137-145) mmol/L Potassium 5.5 H 5.5 H (3.5-5.1) mmol/L Carbon Dioxide 21 L (22-30) mmol/L BUN 99 H (7-17) mg/dL Creatinine 2.57 H (0.52-1.04) mg/dL Glucose 72 L (74-99) mg/dL POC Glucose (mg/dL) 130 H (70-110) mg/dL Calcium (8.4-10.2) mg/dL C-Reactive Protein 17.5 H (<1.0) mg/dL 06/11/23 06/11/23 Range/Units 06:45 06:45 RBC 3.43 L (3.80-5.40) m/uL Hgb 10.4 L (11.4-16.0) gm/dL Hct 33.4 L (34.0-46.0) % RDW 17.6 H (11.5-15.5) % Plt Count 54 L (150-450) k/uL Sodium 135 L (137-145) mmol/L Potassium 5.3 H (3.5-5.1) mmol/L Carbon Dioxide 21 L (22-30) mmol/L BUN 104 H* (7-17) mg/dL Creatinine 2.33 H (0.52-1.04) mg/dL Glucose 111 H (74-99) mg/dL POC Glucose (mg/dL) (70-110) mg/dL Calcium 8.2 L (8.4-10.2) mg/dL C-Reactive Protein 8.4 H (<1.0) mg/dL Microbiology - Last 24 Hours (Table) 06/09/23 13:20 Blood Culture Gram Stain - Preliminary Blood 06/09/23 13:05 Blood Culture Gram Stain - Preliminary Blood
[2023-06-11 13:34] VITALS: BP 107/48; PULSE 84; RESP 19; TEMP 97.4
--- NOTE | 2023-06-11 13:36 | CT ---
EXAMINATION TYPE: CT abdomen pelvis wo con CT DLP: 1891.2 mGycm, Automated exposure control for dose reduction was used. DATE OF EXAM: 06/11/2023 1:25 PM COMPARISON: CT abdomen pelvis most recent from 05/07/2023. CLINICAL INDICATION:Female, 78 years old with history of bacteremia; Bacteremia. TECHNIQUE: Standard CT of the abdomen and pelvis without IV or oral contrast. Lack of IV or oral co ntrast limits evaluation of solid and hollow organ viscera. Coronal and sagittal reformats were perfo rmed. FINDINGS: LOWER CHEST: Mild cardiomegaly. No pericardial effusion. Bibasilar dependent subsequent atelectasis. ABDOMEN LIVER: Unremarkable noncontrast appearance GALLBLADDER AND BILE DUCTS: Unremarkable noncontrast appearance PANCREAS: Unremarkable noncontrast appearance SPLEEN: Unremarkable noncontrast appearance ADRENAL GLANDS: Unremarkable noncontrast appearance. KIDNEYS AND URETERS: No evidence of hydronephrosis or renal calculus. Perinephric fluid collections. PELVIS BLADDER: Nondistended with Montgomery catheter in place. Nondependent foci of gas likely from catheter ijeoma cement. REPRODUCTIVE: Unremarkable noncontrast appearance ABDOMEN & PELVIS STOMACH AND BOWEL: Suspected postsurgical changes of the stomach with surgical clips redemonstrated. Distal colonic diverticulosis without evidence for acute diverticulitis. The appendix is within salvador l limits. No evidence of bowel obstruction. PERITONEUM: No evidence of pneumoperitoneum or free fluid. VASCULATURE: No evidence of aortic aneurysm. MUSCULOSKELETAL: No acute osseous abnormalities. Findings compatible with DISH involving the lower th oracic spine. LYMPH NODES: No gross evidence for lymphadenopathy. SOFT TISSUE/ABDOMINAL WALL: Small fat filled umbilical hernia. IMPRESSION: No acute abdominal/pelvic process.
[2023-06-11] MEDS: MORPHINE SULFATE 2 MG/ML SYRINGE IVP PRN (14:56)
[2023-06-11] MEDS ORDERED: LEVOFLOXACIN 500MG-D5W PMX 500 MG in DEXTROSE/WATER 1 100ML.BAG IVPB SCH (15:00)
--- NOTE | 2023-06-11 16:13 | P.PN ---
Progress Note - Text Progress Note Date: 06/11/[address] Richardson's notes for further details. I spoke with primary attending and her nurse and they notified me that she is hospice.
--- NOTE | 2023-06-11 20:34 | EEG ---
ELECTROENCEPHALOGRAM REPORT CLINICAL HISTORY: This is a 78-year-old woman with reported breakthrough seizure. The video EEG is obtained to evaluate for seizure epileptiform activity. RELEVANT MEDICATIONS: Keppra and Vimpat. EEG TYPE: A routine 21-channel EEG performed with video using the 10/20 electrode placement system. DESCRIPTION: Background consists of tgy-ow-yhvxtofh voltage of 3 hertz. At times, the background consists of 5-6 hertz. There was no physiological stage 2 sleep architecture. There is no focal slowing. Interictal and ictal is, during the study, the patient had multiple episodes of head tremor as well as right foot tremor. Electrographically, the patient had occipital delta rhythmicity lasting 5 to 9 seconds. An example is at 3 minutes and 13 seconds of the study, the patient had 3 hertz moderate voltage of delta rhythmicity without any evolution or any epileptiform discharges. The patient had continuous head tremoring and after resolution of the head tremor, the delta rhythmicity resolved. Another example is at 4 minutes and 5 seconds of the recording, the patient also had delta rhythmicity over the occipital region that lasted less than 10 seconds and resolved after the head tremor stopped. Another incidence is the patient's 11 minutes and 17 seconds, the patient had uncontrolled head tremor and right foot tremor and the patient had semi-rhythmic to nonrhythmic delta theta activity mostly in the posterior region and the episode lasted about 10 seconds. These episodes are not suggestive of electrographic seizures. ACTIVATION PROCEDURE: Photic stimulation and hyperventilation are not performed. CLINICAL INTERPRETATION: This is an abnormal routine EEG. The background slowing is suggestive of moderate-to- severe encephalopathy. No clear electrographic seizures. The patient's head tremor and right foot tremor did not seem suggestive of seizures. Clinical correlation is recommended. MMODL / IJN: [id number] /
--- NOTE | 2023-06-12 09:11 | P.DS ---
Providers Date of admission: 06/09/23 15:18 Expected date of discharge: 06/11/23 Attending physician: Redd Morales MD Consults: 06/09/23 15:17 Consult Physician Routine Consulting Provider: Sandie Richardson Consult Reason/Comments: arvind Do you want consulting provider notified?: Yes 06/09/23 21:37 Consult Physician Routine Consulting Provider: Mirna Umaña Consult Reason/Comments: Hx of Seziure,with AMS, Eval for recurrent seziure Do you want consulting provider notified?: Yes 06/10/23 11:40 Consult Physician Routine Consulting Provider: Adi Dennis Consult Reason/Comments: Sepsis, pneumonia, RLE cellulitis Do you want consulting provider notified?: Yes 06/11/23 09:49 Consult Physician Routine Consulting Provider: Chance Ribera Consult Reason/Comments: Arvind Do you want consulting provider notified?: Yes Primary care physician: Myron Ocampoqvi Hospital Course: * 78-year-old lady with past medical history significant for seizure disorder, chronic kidney disease, hyponatremia, hyperparathyroid, hypothyroidism presented to the emergency department with altered mentation. Patient had recent hospitalization last month with similar presentation and was noted to have breakthrough seizures was seen by Neurology. Patient sent in from facility due to concern for possible aspiration. She is a [facility] resident and a poor historian history was obtained from chart review and medical record * Review of blood work at the time of presentation showed leukocytosis, WBC 11, hemoglobin 11 platelet count 66. Sodium 132 potassium 5.9 chloride 21 BUN 94 creatinine 2.51. * A chest x-ray obtained on admission was negative for acute intrathoracic process. * Patient was started on IV antibiotic and IV fluid and admitted on medical floor for further management * Upon evaluation patient was alert to person and does follow commands however does appear lethargic. Does not know her baseline. She does appear fluid overload * 06/11. Patient seen and examined. Patient is alert to self, opened eyes and follows commands. CODE STATUS changed to DO NOT RESUSCITATE limited after discussion with guardian. Hospice also consulted * Patient transition to hospice PHYSICAL EXAMINATION: GENERAL: The patient is alert, not in any acute distress. Chronically ill- looking, poor oral hygiene HEENT: Pupils are round and equally reacting to light. EOMI. No scleral icterus. No conjunctival pallor. Normocephalic, atraumatic. No pharyngeal erythema. No thyromegaly. CARDIOVASCULAR: S1 and S2 present. No murmurs, rubs, or gallops. PULMONARY: Coarse breath sounds bilaterally, no wheeze ABDOMEN: Soft, nontender, nondistended, normoactive bowel sounds. No palpable organomegaly. MUSCULOSKELETAL: No joint swelling or deformity. EXTREMITIES: 1+ pitting edema lower extremities bilaterally NEUROLOGICAL: Gross neurological examination did not reveal any focal deficits. SKIN: No rashes. Assessment and plan * aspiration pneumonia * acute renal failure with hyperkalemia with chronic kidney disease * chronic hyponatremia * Right lotion with the cellulitis * acute on chronic encephalopathy metabolic in origin * history of seizure disorder * failure to thrive * Patient transition to DO NOT RESUSCITATE limited and discharged as inpatient hospice Plan - Discharge Summary New Discharge Prescriptions: No Action Primidone 250 mg PO HS Potassium Chloride 10 meq PO DAILY@0800 Montelukast [Singulair] 10 mg PO DAILY@0800 Cinacalcet [Sensipar] 30 mg PO DAILY@0800 Furosemide [Lasix] 40 mg PO BID@0900,1600 tab bisacodyL [Dulcolax] 10 mg RECTAL DAILY PRN PRN Reason: Constipation Na Phos,M-B/Na Phos,Di-Ba [Fleet Adult] 133 ml RECTAL DAILY PRN PRN Reason: Constipation Hydrocortisone Lotion [Hytone 2.5% Lotion] 1 applic TOPICAL BID@0800,2100 Betamethasone Dipropionate [Diprolene AF 0.05% Cream] 1 applic TOPICAL BID @0800,2100 Pantoprazole [Protonix] 40 mg PO DAILY@0600 metOLazone [Zaroxolyn] 2.5 mg PO DAILY@0600 Levothyroxine Sodium 125 mcg PO DAILY@0600 Calamine/Zinc Oxide Lotion [Calamine Lotion] 1 applic TOPICAL TID PRN each PRN Reason: Skin Irritation Acetaminophen Tab [Tylenol] 650 mg PO Q4H PRN PRN Reason: Fever And/ Or Pain levETIRAcetam [Keppra] 1,000 mg PO Q12HR@0800,2100 Magnesium Hydroxide [Milk of Magnesia Concentrate] 7,200 mg PO Q48H PRN PRN Reason: Constipation Discharge Medication List Levothyroxine Sodium 125 mcg PO DAILY@0600 21 [History] Primidone 250 mg PO HS 05/20/21 [History] Potassium Chloride 10 meq PO DAILY@79905/23/21 [History] Cinacalcet [Sensipar] 30 mg PO DAILY@79905/06/23 [History] Montelukast [Singulair] 10 mg PO DAILY@79905/06/23 [History] Calamine/Zinc Oxide Lotion [Calamine Lotion] 1 applic TOPICAL TID PRN each 05/15/23 [Rx] Furosemide [Lasix] 40 mg PO BID@0900,1600 tab 05/15/23 [Rx] Acetaminophen Tab [Tylenol] 650 mg PO Q4H PRN 06/09/23 [History] Betamethasone Dipropionate [Diprolene AF 0.05% Cream] 1 applic TOPICAL BID@799,209906/09/23 [History] Hydrocortisone Lotion [Hytone 2.5% Lotion] 1 applic TOPICAL BID@799,209906/09/23 [History] Magnesium Hydroxide [Milk of Magnesia Concentrate] 7,200 mg PO Q48H PRN 06/09/23 [History] Na Phos,M-B/Na Phos,Di-Ba [Fleet Adult] 133 ml RECTAL DAILY PRN 06/09/23 [History] Pantoprazole [Protonix] 40 mg PO DAILY@59906/09/23 [History] bisacodyL [Dulcolax] 10 mg RECTAL DAILY PRN 06/09/23 [History] levETIRAcetam [Keppra] 1,000 mg PO Q12HR@799,209906/09/23 [History] metOLazone [Zaroxolyn] 2.5 mg PO DAILY@59906/09/23 [History] Follow up Appointment(s)/Referral(s): Myron Benítez MD [Primary Care Provider] - 1-2 days Discharge Disposition: HOME WITH HOSPICE
[2023-06-12] MEDS ORDERED: DAPTOmycin 500 MG in SODIUM CHLORIDE 0.9% 50 ML IVPB SCH (17:00)
== END 2023-06-11 15:39 | disposition hospice, home (50) | DRG 871 ==
LOC: EC 11:36 → 4SSUR 15:18
PROVIDERS: ADMIT Internal Medicine; ATTEND Internal Medicine
PROC: 4A10X4Z Monitoring of Central Nervous Electrical Activity, External Approach (ICD-10-PCS; principal; 2023-06-11)
DX: A41.9 Sepsis, unspecified organism (principal); G93.41 Metabolic encephalopathy; J69.0 Pneumonitis due to inhalation of food and vomit; E87.1 Hypo-osmolality and hyponatremia; N17.9 Acute kidney failure, unspecified; L03.115 Cellulitis of right lower limb; R62.7 Adult failure to thrive; Z66 Do not resuscitate; Z51.5 Encounter for palliative care; I12.9 Hypertensive chronic kidney disease with stage 1 through stage 4 chronic kidney disease, or unspecified chronic kidney disease; B95.2 Enterococcus as the cause of diseases classified elsewhere; B95.62 Methicillin resistant Staphylococcus aureus infection as the cause of diseases classified elsewhere; Y84.4 Aspiration of fluid as the cause of abnormal reaction of the patient, or of later complication, without mention of misadventure at the time of the procedure; Z20.822 Contact with and (suspected) exposure to COVID-19; E03.9 Hypothyroidism, unspecified; E21.3 Hyperparathyroidism, unspecified; G40.909 Epilepsy, unspecified, not intractable, without status epilepticus; N18.9 Chronic kidney disease, unspecified; E11.22 Type 2 diabetes mellitus with diabetic chronic kidney disease; E87.5 Hyperkalemia; E87.70 Fluid overload, unspecified; Z88.0 Allergy status to penicillin; Z79.899 Other long term (current) drug therapy; Z79.890 Hormone replacement therapy
CPT/HCPCS: 36415; 71045; 71046; 74176; 76770; 80048; 80053; 80177; 81003; 83605; 83880; 84132; 84484; 85025; 85027; 85610; 85730; 86140; 87040; 87077; 87186; 87449; 87635; 94760; 95816; 96365; 99285

== ENCOUNTER 2023-06-11 14:51 | Inpatient (IN) | payer MEDICAID ==
[2023-06-11] MEDS ORDERED: ONDANSETRON 4 MG/2 ML VIAL IVP PRN (14:56)
[2023-06-11] MEDS ORDERED: ACETAMINOPHEN SUPPOSITORY 650 MG SUPP RECTAL PRN (14:56)
[2023-06-11] MEDS ORDERED: LORazepam 2 MG/ML INJ IV PRN (14:56)
[2023-06-11] MEDS ORDERED: MORPHINE SULFATE 4 MG/ML SYRINGE IV PRN (14:56)
[2023-06-11] MEDS ORDERED: DRY MOUTH SPRAY 44.3 SPRAY/44.3 ML SPRAY MUCOUS MEM PRN (14:56)
[2023-06-11] MEDS: SODIUM CHLORIDE 0.9% 1,000 ML IV SCH (17:47)
[2023-06-11] MEDS: MORPHINE SULFATE (100 MG/2 ML) 100 MG in SODIUM CHLORIDE 0.9% 100 ML IV SCH (17:48)
[2023-06-11] MEDS: Lacosamide IV (ages 17+ yrs) 200 MG/20 ML ML IVP SCH (21:03)
[2023-06-11] MEDS: levETIRAcetam IV 500 MG/5 ML VIAL IVP SCH (21:03)
[2023-06-12] MEDS: levETIRAcetam IV 500 MG/5 ML VIAL IVP SCH ×2 (09:12→22:25)
[2023-06-12] MEDS: Lacosamide IV (ages 17+ yrs) 200 MG/20 ML ML IVP SCH ×2 (09:12→22:24)
[2023-06-12] MEDS: ATROPINE OPHTH SOLN 1% 5ML BTL SUBLINGUAL PRN (11:00)
[2023-06-12] MEDS: GLYCOPYRROLATE 0.2 MG/ML 2 ML VIAL IVP PRN (12:51)
[2023-06-12] MEDS: MORPHINE SULFATE (100 MG/2 ML) 100 MG in SODIUM CHLORIDE 0.9% 100 ML IV SCH (15:36)
[2023-06-12] MEDS: SODIUM CHLORIDE 0.9% 1,000 ML IV SCH (16:05)
[2023-06-13] MEDS: levETIRAcetam IV 500 MG/5 ML VIAL IVP SCH ×2 (08:32→21:32)
[2023-06-13] MEDS: Lacosamide IV (ages 17+ yrs) 200 MG/20 ML ML IVP SCH ×2 (08:34→21:31)
[2023-06-13] MEDS: ATROPINE OPHTH SOLN 1% 5ML BTL SUBLINGUAL PRN ×3 (10:50→21:31)
[2023-06-13] MEDS: GLYCOPYRROLATE 0.2 MG/ML 2 ML VIAL IVP PRN ×3 (10:59→23:49)
--- NOTE | 2023-06-13 12:44 | P.PN ---
Subjective Progress Note Date: 06/13/23 * 78-year-old lady with past medical history significant for seizure disorder, chronic kidney disease, hyponatremia, hyperparathyroid, hypothyroidism presented to the emergency department with altered mentation. Patient had recent hospitalization last month with similar presentation and was noted to have breakthrough seizures was seen by Neurology. Patient sent in from facility due to concern for possible aspiration. She is a alf resident and a poor historian history was obtained from chart review and medical record * Review of blood work at the time of presentation showed leukocytosis, WBC 11, hemoglobin 11 platelet count 66. Sodium 132 potassium 5.9 chloride 21 BUN 94 creatinine 2.51. * A chest x-ray obtained on admission was negative for acute intrathoracic process. * Patient was started on IV antibiotic and IV fluid and admitted on medical floor for further management * Upon evaluation patient was alert to person and does follow commands however does appear lethargic. Does not know her baseline. She does appear fluid overload * 06/11. Patient seen and examined. Patient is alert to self, opened eyes and follows commands. CODE STATUS changed to DO NOT RESUSCITATE limited after discussion with guardian. Hospice also consulted Patient transition to hospice * 06/12: Patient to remain hospice with end-of-life care * 06/13: Patient remains comfort measures/hospice. GIP plan discussed with nursing staff Objective - Vital Signs Vital signs: Vital Signs Temp 96.9 F L 06/13/23 07:03 Pulse 89 06/13/23 07:03 Resp 14 06/13/23 07:03 BP Pulse Ox 95 06/13/23 07:03 FiO2 Intake & Output 06/12/23 06/13/23 06/13/23 18:59 06:59 18:59 Intake Total 18.717 Output Total 200 100 Balance -181.283 -100 Intake: Intake, IV Titration 18.717 Amount Morphine Sulfate (100 mg/ 18.717 2 ml) 100 mg In Sodium Chloride 0.9% 100 ml @ 1 MG/HR 1.02 mls/hr IV . Q24H [facility] Rx#:[id number] Output: Urine 200 100 Other: Voiding Method Indwelling Catheter Indwelling Catheter Indwelling Catheter - Exam PHYSICAL EXAMINATION: Exam limited patient is hospice, resting comfortably Assessment and Plan Assessment: Assessment and plan * aspiration pneumonia * acute renal failure with hyperkalemia with chronic kidney disease * chronic hyponatremia * Right lotion with the cellulitis * acute on chronic encephalopathy metabolic in origin * history of seizure disorder * failure to thrive * Patient transitioned to comfort measures. * Patient is inpatient hospice. * Continue IV antiseizure medications. * Continue scopolamine patch * pain medications as needed * Patient on morphine infusion
[2023-06-13] MEDS: MORPHINE SULFATE (100 MG/2 ML) 100 MG in SODIUM CHLORIDE 0.9% 100 ML IV SCH (16:24)
[2023-06-13] MEDS: SODIUM CHLORIDE 0.9% 1,000 ML IV SCH (16:25)
[2023-06-14] MEDS: ATROPINE OPHTH SOLN 1% 5ML BTL SUBLINGUAL PRN ×4 (02:16→14:46)
[2023-06-14] MEDS: MORPHINE SULFATE (100 MG/2 ML) 100 MG in SODIUM CHLORIDE 0.9% 100 ML IV SCH (05:56)
[2023-06-14] MEDS: GLYCOPYRROLATE 0.2 MG/ML 2 ML VIAL IVP PRN (06:03)
[2023-06-14] MEDS: Lacosamide IV (ages 17+ yrs) 200 MG/20 ML ML IVP SCH ×2 (08:35→20:53)
[2023-06-14] MEDS: levETIRAcetam IV 500 MG/5 ML VIAL IVP SCH ×2 (08:35→20:52)
[2023-06-14] MEDS ORDERED: SCOPOLAMINE 1 MG/72 HR PATCH TRANSDERM SCH (09:00)
--- NOTE | 2023-06-14 12:19 | P.PN ---
Subjective Progress Note Date: 06/14/23 * 78-year-old lady with past medical history significant for seizure disorder, chronic kidney disease, hyponatremia, hyperparathyroid, hypothyroidism presented to the emergency department with altered mentation. Patient had recent hospitalization last month with similar presentation and was noted to have breakthrough seizures was seen by Neurology. Patient sent in from facility due to concern for possible aspiration. She is a [facility] resident and a poor historian history was obtained from chart review and medical record * Review of blood work at the time of presentation showed leukocytosis, WBC 11, hemoglobin 11 platelet count 66. Sodium 132 potassium 5.9 chloride 21 BUN 94 creatinine 2.51. * A chest x-ray obtained on admission was negative for acute intrathoracic process. * Patient was started on IV antibiotic and IV fluid and admitted on medical floor for further management * Upon evaluation patient was alert to person and does follow commands however does appear lethargic. Does not know her baseline. She does appear fluid overload * 06/11. Patient seen and examined. Patient is alert to self, opened eyes and follows commands. CODE STATUS changed to DO NOT RESUSCITATE limited after discussion with guardian. Hospice also consulted Patient transition to hospice * 06/12: Patient to remain hospice with end-of-life care * 06/13: Patient remains comfort measures/hospice. GIP plan discussed with nursing staff * 06/14; patient assessed at bedside remains comfortable family at bedside as well continue with inpatient hospice management Objective - Vital Signs Vital signs: Vital Signs Temp 98.3 F 06/14/23 08:30 Pulse 69 06/14/23 08:30 Resp 10 L 06/14/23 08:30 BP 56/33 06/14/23 08:30 Pulse Ox 76 L 06/14/23 08:30 FiO2 Intake & Output 06/13/23 06/14/23 06/14/23 18:59 06:59 18:59 Intake Total 83.283 6.494 Output Total 0 Balance 0 83.283 6.494 Intake: Intake, IV Titration 83.283 6.494 Amount Morphine Sulfate (100 mg/ 83.283 6.494 2 ml) 100 mg In Sodium Chloride 0.9% 100 ml @ 1 MG/HR 1.02 mls/hr IV . Q24H [facility] Rx#:[id number] Output: Urine 0 Other: Voiding Method Indwelling Catheter Indwelling Catheter Indwelling Catheter - Exam PHYSICAL EXAMINATION: Exam limited patient is hospice, resting comfortably Disoriented, no use of accessory muscle Assessment and Plan Assessment: Assessment and plan * aspiration pneumonia * acute renal failure with hyperkalemia with chronic kidney disease * chronic hyponatremia * Right lotion with the cellulitis * acute on chronic encephalopathy metabolic in origin * history of seizure disorder * failure to thrive * Patient transitioned to comfort measures. * Patient is inpatient hospice. * Continue IV antiseizure medications. * Continue scopolamine patch * pain medications as needed * Patient on morphine infusion
[2023-06-14] MEDS: GLYCOPYRROLATE 0.2 MG/ML 2 ML VIAL IVP SCH ×3 (12:23→20:52)
[2023-06-14] MEDS: SODIUM CHLORIDE 0.9% 1,000 ML IV SCH (20:53)
[2023-06-15] MEDS: GLYCOPYRROLATE 0.2 MG/ML 2 ML VIAL IVP SCH ×3 (01:06→09:00)
[2023-06-15] MEDS: ATROPINE OPHTH SOLN 1% 5ML BTL SUBLINGUAL PRN ×2 (01:07→04:54)
[2023-06-15 01:35] VITALS: TEMP 98
[2023-06-15] MEDS: MORPHINE SULFATE (100 MG/2 ML) 100 MG in SODIUM CHLORIDE 0.9% 100 ML IV SCH (06:48)
[2023-06-15 07:47] VITALS: BP 45/27; PULSE 60; RESP 10
[2023-06-15] MEDS: levETIRAcetam IV 500 MG/5 ML VIAL IVP SCH (09:00)
[2023-06-15] MEDS: Lacosamide IV (ages 17+ yrs) 200 MG/20 ML ML IVP SCH (09:00)
--- NOTE | 2023-06-18 11:52 | CDI ---
Documentation Clarification Form Date: 06/18/2023 11:43:12 AM From: Monique Kitchen Phone: Admit Date: 06/11/2023 03:55:00 PM Patient Name: Margarita Chao Visit Number: [id number] Discharge Date: 06/15/2023 01:56:00 PM ATTENTION: The Clinical Documentation Specialists (CDI) and [facility] Coding Staff appreciate your assistance in clarifying documentation. Please respond to the clarification below the line at the bottom and electronically sign. The CDI & [facility] Coding staff will review the response and follow-up if needed. Please note: Queries are made part of the Legal Health Record. If you have any questions, please contact the author of this message via ITS. Dr. Redd Morales Unspecified CKD is documented Progress Note 06/13/23. Additional clarification regarding the stage of CKD is requested. History/Risk Factors: 78yo F, Asp PNA, KAT, hyperkalemia, CKD, chronic hyponatremia, groincellulitis, A/Cencephalopathy metabolic, Hx seizure disorder, FTT Clinical Indicators: BUN 94 Creatinine 2.51 GFR unavailable Treatment: monitoring Please clarify the stage of the CKD, if known: [ ] CKD Stage 1 (GFR > 90) [ ] CKD Stage 2 (GFR 60-89) [ ] CKD Stage 3 (GFR 30-59) [ ] CKD Stage 3a (GFR 45-59) [ ] CKD Stage 3b (GFR 30-44) [ ] CKD Stage 4 (GFR 15-29) [ ] CKD Stage 5 (GFR <15) [ ] Other, please specify [ ] Unable to determine (Template Last revised: November 2020) MTDD
== END 2023-06-15 13:56 | disposition expired | DRG 951 ==
LOC: 4SSUR 15:55
PROVIDERS: ADMIT Internal Medicine; ATTEND Internal Medicine
DX: Z51.5 Encounter for palliative care (principal); G93.41 Metabolic encephalopathy; J69.0 Pneumonitis due to inhalation of food and vomit; N17.9 Acute kidney failure, unspecified; Z68.41 Body mass index [BMI] 40.0-44.9, adult; E87.1 Hypo-osmolality and hyponatremia; L03.314 Cellulitis of groin; G40.909 Epilepsy, unspecified, not intractable, without status epilepticus; E21.3 Hyperparathyroidism, unspecified; Z66 Do not resuscitate; R62.7 Adult failure to thrive; E03.9 Hypothyroidism, unspecified; N18.9 Chronic kidney disease, unspecified; E87.5 Hyperkalemia; E87.70 Fluid overload, unspecified